=== PATIENT | female | born 1990 | race Caucasian/White ===

== ENCOUNTER 2024-04-06 07:00 | Outpatient (OUT) | payer OTHER, SELFPAY ==
[2024-04-07 04:07] LABS: Progesterone 13.7 ng/mL (.)
== END 2024-04-06 07:01 | disposition home or self-care (01) ==
PROVIDERS: PCP Nurse Practitioner Family; Visit Provider Obstetrics & Gynecology
DX: N97.0 Female infertility associated with anovulation (principal)
CPT/HCPCS: 36415; 84144

== ENCOUNTER 2024-09-14 12:47 | Outpatient (OUT) | payer OTHER, SELFPAY ==
--- NOTE | 2024-09-14 12:54 | US_ITS ---
The [address] [address] Patient Name: SARAHY SPENCE MRN: [id number] date: 1990 Sex: F Assigned Patient Location: US Current Patient Location: US Accession/Order Number: [id number] Exam Date: 09/14/2024 13:15 Report Date: 09/14/2024 14:41 At the request of: CARLYLE LEE Procedure: US venous doppler LE RT CLINICAL DATA: Right leg swelling PROCEDURE: Right lower extremity venous duplex ultrasound. TECHNIQUE: Reis-scale, color flow, and waveform spectral analysis was performed of the right lower extremity. FINDINGS: The right common femoral, profunda femoral, femoral, and popliteal veins were compressible. The saphenous vein was compressible. No venous thrombosis was seen. The veins fill with color Doppler. Augmentation was normal. US/US venous doppler LE RT IMPRESSION: 1. No acute lower extremity deep venous thrombosis. 2. No superficial venous thrombosis. Electronically authenticated by: Wilian TANG Date: 09/14/2024 14:41
== END 2024-09-14 12:48 | disposition home or self-care (01) ==
LOC: US 12:48
PROVIDERS: PCP Nurse Practitioner Family; Visit Provider Nurse Practitioner Family
DX: M79.661 Pain in right lower leg (principal); M79.89 Other specified soft tissue disorders; O26.891 Other specified pregnancy related conditions, first trimester; Z3A.09 9 weeks gestation of pregnancy
CPT/HCPCS: 93971

== ENCOUNTER 2024-09-25 09:31 | Outpatient (OUT) | payer OTHER, SELFPAY ==
--- NOTE | 2024-09-25 09:34 | US_ITS ---
The [address] [address] Patient Name: SARAHY SPENCE MRN: [id number] date: 1990 Sex: F Assigned Patient Location: [facility] Current Patient Location: Accession/Order Number: [id number] Exam Date: 09/25/2024 09:35 Report Date: 09/26/2024 05:04 At the request of: YEISON RAINEY Procedure: US OB transvaginal EXAMINATION: US OB transvaginal HISTORY: MISSED MENSES COMPARISON: No relevant comparison available. FINDINGS: GESTATIONAL SAC: Present and normal appearing. YOLK SAC: Present and normal appearing. POLE: Present and normal appearing. CARDIAC: Present. UTERUS: Normal size and appearance. OVARIES: Right: Normal. Left: Normal. CERVIX: 4.0 cm in length and closed. CUL-DE-SAC: Normal. OTHER: None. AGE BY LMP: 10 weeks 5 days ROYA BY LMP: 04/18/2025 AGE BY US CRL: 10 weeks 5 days ROYA BY US CRL: 04/18/2025 US/US OB transvaginal IMPRESSION: 1. Single live intrauterine . Electronically authenticated by: YOVANI DE LOS SANTOS Date: 09/26/2024 05:04
--- OUTSIDE RECORDS SUMMARY | 2024-09-25 09:44 | XMS_ITS | CCD ---
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 HELPER Leticia Neville Primary Care Provider ISAI Hinojosa Attending Provider Deloris, Leticia A Admitting Unavailable Deloris, Leticia A Attending Unavailable Deloris, Leticia A Primary Care Unavailable Araceli Hinojosa Attending Unavailable Araceli Hinojosa Admitting Unavailable Deloris, Leticia A Primary Care Unavailable Araceli Hinojosa Unavailable SAMARA BROWER Attending Unavailable APLING, SAMARA Gallo Attending Unavailable APLING, SAMARA Gallo Referring Unavailable APLING, SAMARA Gallo Attending Unavailable APLING, SAMARA Gallo Referring Unavailable YEISON SWEET Attending Unavailable APLING, SAMARA Gallo Attending Unavailable REDDFRANCY JacksonY Referring Unavailable REDDYEISON MADDOX Attending Unavailable Medications Current Medications Medication Drug Class(es) Dates Sig (Normalized) Sig (Original) Cholecalciferol (5 sources) Vitamin D Start: 04-05-2023 take 1 capsule by mouth every week Cholecalciferol 1.25 MG (97941 UT) 1 capsule Orally weekly for 56 days follow week 9 with D3 4000 IU daily Apr, Active take 1 capsule by mouth every we ek Cholecalciferol 1.25 MG (49623 UT) 1 capsule Orally weekly for 56 days follow week 9 with D3 4000 IU daily Active 3 ml liraglutide 6 mg/ml pen injector (5 sources) GLP-1 Receptor Agonist Start: 04-05-2023 inject 3 mg by subcutaneous injection once daily Saxenda 18 MG/3ML 3 mg Subcutaneous daily for 30 days Started via sample Apr, Active meclizine hydrochloride 25 mg oral tablet (1 source) Antiemetic Start: 09-14-2024 take 1 tablet by mouth once daily as needed Meclizine (Dramamine (Meclizine)) 25 mg tablet Active 25 MG PO Daily as needed September 14, 2024 12:00am [id number]-Ciho Fum-Folic Ac-Om3 (One Daily ) 28-800-440 mg-mcg-mg combo pack (1 source) Start: 09-14-2024 [id number]-Ezkw Fum-Folic Ac-Om3 (One Daily ) 28-800-440 mg-mcg-mg combo pack Active PKG PO September 14, 2024 12:00am (4 sources) Active vitamin b6 500 mg oral tablet (1 source) Start: 09-14-2024 take 1 tablet by mouth once daily Pyridoxine (Vitamin B6) 500 mg tablet Active 500 MG PO Daily September 14, 2024 12:00am Completed/Discontinued Medications Medication Drug Class(es) Dates Sig (Normalized) Sig (Original) amoxicillin 875 mg / clavulanate 125 mg oral tablet (8 sources) Penicillin-class Antibacterial Start: 09-11-2022 take 1 tablet by mouth every twelve hours Amoxicillin-Pot Clavulanate 875-125 MG 1 tablet Orally every 12 hrs for 10 day(s) Sep, Not-Taking Ethinyl Estradiol / Etonogestrel (15 sources) Progestin, Estrogen EluRyng 0.12-0.015 MG/24HR [address] for 3 weeks, remove, and replace with a new ring after 7 day break Vaginal Not-Taking NuvaRing Not-Bennett ing NuvaRing Active fluconazole 150 mg oral tablet (8 sources) Azole Antifungal Start: 09-11-2022 Fluconazole 1 50 MG 1 tablet Orally once, repeat dose in 72 hours if needed for 2 days Sep, Not-Taking Problems Active Problems Problem Classification Problem Date Documented Da te Episodic/Chronic Disorders of lipid metabolism (19 sources) Hyperlipidemia; Translations: [Hyperlipidemia, unspecified] Chronic Fracture of upper limb (2 sources) Fracture of unspecified carpal bone, left wrist, subsequent encounter for fracture with routine healing; Translations: [Torus fracture of lower end of left radius, initial encounter for closed fracture] Episodic Immunizations and screening for infectious disease (1 source) Contact with and (suspected) exposure to other viral communicable diseases Episodic Menstrual disorders (2 sources) Irregular periods; Translations: [Irregular menstruation, unspecified] Chronic Nutritional deficiencies (15 sources) Vitamin D deficiency; Translations: [Vitamin D deficiency, unspecified] Onset: 03-07-2023 Chronic Other connective tissue disease (1 source) Swelling of right lower limb; Translations: [Other specified soft tissue disorders] 09-14-2024 Episodic Other connective tissue disease (1 source) Pain in calf; Translations: [Pain in right lower leg] 09-14-2024 Episodic Other connective tissue disease (1 source) Pain in right lower leg; Translations: [Pain in limb] 09-14-2024 Episodic Other connective tissue disease (1 source) Other specified soft tissue disorders; Translations: [Swelling of limb] 09-14-2024 Episodic Other non-traumatic joint disorders (2 sources) Pain in left wrist Episodic Other nutritional; endocrine; and metabolic disorders (18 sources) Obesity; Translations: [Obesity, unspecified] Chronic Other nutritional; endocrine; and metabolic disorders (20 sources) Body mass index 40+ - severely obese; Translations: [Body mass index (BMI) 45.0-49.9, adult] Chronic Other nutritional; endocrine; and metabolic disorders (7 sources) Obesity, unspecified; Translations: [OBESITY UNSPECIFIED] Onset: 03-02-2023 Chronic Other nutritional; endocrine; and metabolic disorders (3 sources) Body mass index (BMI) 45.0-49.9, adult Chronic Other nutritional; endocrine; and metabolic disorders (4 sources) Morbid obesity; Translations: [Morbid (severe) obesity due to excess calories] Chronic Other nutritional; endocrine; and metabolic disorders (1 source) Morbid (severe) obesity due to excess calories Chronic Other skin disorders (3 sources) Nonscarring hair loss, unspecified Episodic Other skin disorders (3 sources) Hirsutism Episodic Other skin disorders (7 sources) Acanthosis nigricans; Translations: [Acanthosis nigricans] Episodic Other skin disorders (1 source) Acanthosis nigricans Episodic Other upper respiratory infections (1 source) Acute maxillary sinusitis, unspecified Episodic Residual codes; unclassified (4 sources) Family history of diabetes mellitus; Translations: [FAMILY HISTORY OF DIABETES MELLITUS] Onset: 03-07-2023 Episodic Residual codes; unclassified (2 sources) Family history of ischemic heart disease and other diseases of the circulatory system Episodic Residual codes; unclassified (1 source) Gestation period, 9 weeks; Translations: [9 weeks gestation of ] 09-14-2024 Episodic Residual codes; unclassified (1 source) 9 weeks gestation of ; Translations: [ state, incidental] 09-14-2024 Episodic Unclassified (1 source) Pain in left wrist; Translations: [Pain in left wrist] Onset: 11-29-2023 Unclassified (1 source) Dietary counseling and surveillance; Translations: [Dietary counseling and surveillance] Onset: 05-13-2023 Past or Other Problems Problem Classification Problem Date Documented Da te Episodic/Chronic Unclassified (1 source) Insulin resistance E88.819 Results Test Name Value Interpretation Reference Range Facility US PELVIC COMPLETE W/ TVon 0 02-18-2024 US PELVIC COMPLETE W/ TV FINDINGS: Uterus: 6.6 x 2.6 x 2.2 cm Endometrium: 4 mm Right ovary: 2.3 x 2.5 x 2.0 cm Left ovary: 2.0 x 1.7 x 1.8 cm The uterus is normal in size and orientation. No worrisome mass lesions are seen. Endometrium appears unremarkable. No fluid is seen within the cul-de-sac. Both ovaries appear normal for this age. IMPRESSION: Normal pelvic ultrasound appearance TRANSCRIBED BY: ELECTRONICALLY SIGNED BY: Tremaine Jay MD Normal Not Available Comment on above: Order Comment: No LM P recorded (lmp unknown). XR wrist LT min 3V*on 2023 XR wrist LT min 3V* [facility] Other XR wrist LT min 3V* [facility] Other XR wrist LT min 3V* [address] [place] [address] [facility] Other XR wrist LT min 3V* [place] [address] [facility] Other XR wrist LT min 3V* XRay Report [facility] Other XR wrist LT min 3V* Signed [facility] Other XR wrist LT min 3V* Patient: Sandra Colon MR#: [id number] [facility] Other XR wrist LT min 3V* [id number] [facility] Other XR wrist LT min 3V* : 1990 Acct:[id number] [facility] Other XR wrist LT min 3V* Age/Sex: 33 / F ADM Date: 11/29/23 [facility] Other XR wrist LT min 3V* Loc: XDUCLY Room: Type: [facility] Other XR wrist LT min 3V* Attending Dr: Araceli ALEX [facility] Other XR wrist LT min 3V* Copies to: ISAI Fisher [facility] Other XR wrist LT min 3V* Ordering Provider: ISAI Fisher [facility] Other XR wrist LT min 3V* Date of Service: 11/29/23 [facility] Other XR wrist LT min 3V* XR/XR wrist LT min 3V*: LEFT WRIST INJURY [facility] Other XR wrist LT min 3V* LEFT WRIST - 4 views [facility] Other XR wrist LT min 3V* CLINICAL HISTORY: Patient fell on steps this morning now with pain and swelling left wrist. [facility] Other XR wrist LT min 3V* COMPARISON: None [facility] Other XR wrist LT min 3V* FINDINGS: [facility] Other XR wrist LT min 3V* No focal soft tissue abnormality. A subtle linear lucency is seen involving the distal radius [facility] Other XR wrist LT min 3V* possibly representing a nondisplaced fracture. Distal ulna appears intact. Carpus appears intact. No [facility] Other XR wrist LT min 3V* bony erosions. [facility] Other XR wrist LT min 3V* XR/XR wrist LT min 3V* [facility] Other XR wrist LT min 3V* IMPRESSION: [facility] Other XR wrist LT min 3V* A SUBTLE LINEAR LUCENCY IS SEEN INVOLVING THE DISTAL RADIUS POSSIBLY REPRESENTING A NONDISPLACED [facility] Other XR wrist LT min 3V* FRACTURE. FOLLOW-UP IS RECOMMENDED. [facility] Other XR wrist LT min 3V* Impression dictated by: Tremaine Larsen Jr., D.O.11/29/2023 10:19 AM [facility] Other XR wrist LT min 3V* Dictation Location: [place] [address] [facility] Other XR wrist LT min 3V* Transcribed By: ABDULKADIR 11/29/23 1019 [facility] Other XR wrist LT min 3V* Dictated By: Tremaine Larsen Jr DO 11/29/23 1017 [facility] Other XR wrist LT min 3V* Signed By: [facility] Other XR wrist LT min 3V* 11/29/23 1019 [facility] Other XR wrist LT min 3V* [facility] [place] [address] [place] [address] XRay Report Signed Patient: Sandra Colon MR#: [id number] : 1990 Acct:[id number] Age/Sex: 33 / F ADM Date: 11/29/23 Loc: XDUCLY Room: Type: [facility] Attending Dr: Araceli ALEX Copies to: ISAI Fisher Ordering Provider: ISAI Fisher Date of Service: 11/29/23 XR/XR wrist LT min 3V*: LEFT WRIST INJURY LEFT WRIST - 4 views CLINICAL HISTORY: Patient fell on steps this morning now with pain and swelling left wrist. COMPARISON: None FINDINGS: No focal soft tissue abnormality. A subtle linear lucency is seen involving the distal radius possibly representing a nondisplaced fracture. Distal ulna appears intact. Carpus appears intact. No bony erosions. XR/XR wrist LT min 3V* IMPRESSION: A SUBTLE LINEAR LUCENCY IS SEEN INVOLVING THE DISTAL RADIUS POSSIBLY REPRESENTING A NONDISPLACED FRACTURE. FOLLOW-UP IS RECOMMENDED. Impression dictated by: Tremaine Larsen Jr., DMaryOMary11/29/2023 10:19 AM Dictation Location: [place] [address] Transcribed By: [facility] 11/29/23 1019 Dictated By: Tremaine Larsen Jr, DO 11/29/23 1017 Signed By: 11/29/23 1019 Normal [facility] LIPID PROFILEon 03-02-2023 CHOL-HDL RATIO NORM SEE BELOW Normal [facility] Comment on above: Result Comment: 3.3 - 4.4 LOW RISK 4.4 - 7.1 AVERAGE RISK 7.1 - 11.0 MODERATE RISK >11.0 HIGH RISK Performed By: #### L ABELARDO IBRAHIM, TSHRFT4 #### [facility] [address] [place] [address] [address] Aruna Lopez Cholesterol [Mass/Vol] 264 mg/dL Critically high <=200 [facility] Comment on above: Performed By: #### L ABELARDO IBRAHIM, TSHRFT4 #### [facility] [address] [place], [place] [address] Dr. Aruna Lopez Cholesterol in HDL [Mass/Vol] 46 mg/dL Normal 40-60 [facility] Comment on above: Performed By: #### L IPID, CMP, TSHRFT4 #### [facility] [address] [place] [address] [address] Aruna Lopez Cholesterol in LDL [Mass/Vol] 193.0 mg/dL Normal [facility] Comment on above: Performed By: #### L IPID, CMP, TSHRFT4 #### [facility] [address] [place] [address] [address] Aruna Lopez Cholesterol.total/ Cholesterol in HDL [Mass ratio] 5.7 {ratio} Normal [facility] Comment on above: Performed By: #### L IPID, CMP, TSHRFT4 #### [facility] [address] [place] [address] [address] Aruna Lopez HDL NORMAL > or = 60 mg/dl - LOW CARDIOVASCULAR RISK <40 mg/dl - HIGH CARDIOVASCULAR RISK Normal [facility] Comment on above: Performed By: #### L IPID, CMP, TSHRFT4 #### [facility] [address] [place] [address] [address] Aruna Lopez LDL CALC NORMAL SEE BELOW Normal [facility] Comment on above: Result Comment: <100 mg/dl OPTIMAL 100 - 129 mg/dl NEAR OR ABOVE OPTIMAL 130 - 159 mg/dl BORDERLINE HIGH 160 - 189 mg/dl HIGH >190 mg/dl VERY HIGH Performed By: #### L IPID, CMP, TSHRFT4 #### [facility] [address] [place] [address] [address] Aruna Lopez Triglyceride [Mass/Vol] 125 mg/dL Normal <=150 [facility] Comment on above: Performed By: #### L IPID, CMP, TSHRFT4 #### [facility] [address] [place] [address] [address] Aruna Lopez VLDL CALC 25.0 mg/dL Normal [facility] Comment on above: Performed By: #### L IPID, CMP, TSHRFT4 #### [facility] [address] [place] [address] [address] Aruna Lopez PROF 14(COMP METB)on 023 Albumin [Mass/Vol] 3.2 g/dL Critically low 3.4-5.0 [facility] Comment on above: Performed By: #### L IPID, CMP, TSHRFT4 #### [facility] [address] [place] [address] Dr. Aruna Lopez Albumin/Globulin [Mass ratio] 0.8 {ratio} Normal [facility] Comment on above: Performed By: #### L IPID, CMP, TSHRFT4 #### [facility] [address] [place] [address] Dr. Aruna Lopez ALP [Catalytic activity/Vol] 107 U/L Normal 46-116 [facility] Comment on above: Performed By: #### L IPID, CMP, TSHRFT4 #### [facility] [address] [place] [address] Dr. Aruna Lopez ALT [Catalytic activity/Vol] 17 U/L Normal 14-59 [facility] Comment on above: Performed By: #### L IPID, CMP, TSHRFT4 #### [facility] [address] [place] [address] Dr. Aruna Lopez Anion gap [Moles/Vol] 8.0 mmol/L Normal [facility] Comment on above: Performed By: #### L IPID, CMP, TSHRFT4 #### [facility] [address] [place] [address] Dr. Aruna Lopez AST [Catalytic activity/Vol] 29 U/L Normal 15-37 [facility] Comment on above: Performed By: #### L IPID, CMP, TSHRFT4 #### [facility] [address] [place] [address] Dr. Aruna Lopez Bilirubin [Mass/Vol] 0.5 mg/dL Normal 0.2-1.0 [facility] Comment on above: Performed By: #### L IPID, CMP, TSHRFT4 #### [facility] [address] [place] [address] Dr. Aruna Lopez Calcium [Mass/Vol] 8.9 mg/dL Normal 8.5-10.1 [facility] Comment on above: Performed By: #### L IPID, CMP, TSHRFT4 #### [facility] [address] [place] [address] [address] Aruna Lopez Chloride [Moles/Vol] 105 mmol/L Normal 98-107 [facility] Comment on above: Performed By: #### L IPID, CMP, TSHRFT4 #### [facility] [address] [place] [address] [address] Aruna Lopez CO2 [Moles/Vol] 29.6 mmol/L Normal 21.0-32.0 [facility] Comment on above: Performed By: #### L IPID, CMP, TSHRFT4 #### [facility] [address] [place] [address] [address] Aruna Lopez Creatinine [Mass/Vol] 0.68 mg/dL Normal 0.55-1.02 [facility] Comment on above: Performed By: #### L IPID, CMP, TSHRFT4 #### [facility] [address] [place] [address] [address] Aruna Lopez EGFR-AF ZAMBIAN >60 Normal >=60 [facility] Comment on above: Performed By: #### L IPID, CMP, TSHRFT4 #### [facility] [address] [place] [address] Dr. Aruna Lopez EGFR-NON AF ZAMBIAN >60 Normal >=60 [facility] Comment on above: Performed By: #### L IPID, CMP, TSHRFT4 #### [facility] [address] [place] [address] [address] Aruna Lopez Globulin (S) [Mass/Vol] 4.1 g/dL Normal [facility] Comment on above: Performed By: #### L IPID, CMP, TSHRFT4 #### [facility] [address] [place] [address] [address] Aruna Lopez Glucose [Mass/Vol] 98 mg/dL Normal 74-106 [facility] Comment on above: Performed By: #### L IPID, CMP, TSHRFT4 #### [facility] [address] [place] [address] [address] Aruna Lopez Potassium [Moles/Vol] 4.6 mmol/L Normal 3.5-5.1 [facility] Comment on above: Performed By: #### L IPID, CMP, TSHRFT4 #### [facility] [address] [place] [address] Dr. Aruna Lopez Protein [Mass/Vol] 7.3 g/dL Normal 6.4-8.2 [facility] Comment on above: Performed By: #### L IPID, CMP, TSHRFT4 #### [facility] [address] [place] [address] Dr. Aruna Lopez Sodium [Moles/Vol] 138 mmol/L Normal 136-145 [facility] Comment on above: Performed By: #### L IPID, CMP, TSHRFT4 #### [facility] [address] [place] [address] Dr. Aruna Lopez Urea nitrogen [Mass/Vol] 9.0 mg/dL Normal 7.0-18.0 [facility] Comment on above: Performed By: #### L IPID, CMP, TSHRFT4 #### [facility] [address] [place] [address] Dr. Aruna Lopez Urea nitrogen/Creatinin e [Mass ratio] 13.2 mg/mg Normal [facility] Comment on above: Performed By: #### L IPID, CMP, TSHRFT4 #### [facility] [address] [place] [address] Dr. Aruna Lopez TSH W/ REFLEX TO FT4on 03-02 TSH 1.177 uIU/mL Normal 0.358-3.740 [facility] Comment on above: Performed By: #### L IPID, CMP, TSHRFT4 #### [facility] [address] [place] [address] Dr. Aruna Lopez VITAMIN B12on 03-02-2023 Cobalamin (Vitamin B12) [Mass/Vol] 261.0 pg/mL Normal 193.0-986.0 [facility] Comment on above: Performed By: #### V ITAD, VITB12 #### [facility] [address] [place], [place] [address] Dr. Aruna Lopez VITAMIN D 25 OHon 03-02-2023 VIT D 25-OH 15.6 ng/mL Normal [facility] Comment on above: Performed By: #### V ITAD, VITB12 #### [facility] [address] [place] [address] [address] Aruna Lopez VIT D RANGES SEE BELOW Normal [facility] Comment on above: Result Comment: <20 ng/mL Vit D deficient 20 - <30 ng/mL Vit D insufficient 30 - 100 ng/mL Vit D sufficient >100 ng/mL Potential Toxicity Performed By: #### V ITAD, VITB12 #### [facility] [address] [place] [address] [address] Aruna Lopez COVID Quick Testingon 2021 Result Negative [facility] Other Quick Strepon 09-11-2022 S. pyogenes Org specific cx Ql (Throat) Negative [employer] [facility] Other Quick Strep [facility] Other Vital Signs Date Time Vital Sign Value Performing Clinician Facility 09-14-2024 10:46-0500 Body height 160.02 cm [facility] 09-14-2024 10:46-0500 Body mass index (BMI) [Ratio] 47.8 kg/m2 [facility] 09-14-2024 10:46-0500 Body temperature 95.6 [degF] [facility] 09-14-2024 10:46-0500 Body weight 122.55 kg [facility] 09-14-2024 10:46-0500 Diastolic blood pressure 84 mm[Hg] [facility] 09-14-2024 10:46-0500 Heart rate 102 /min [facility] 09-14-2024 10:46-0500 SaO2% (BldA) [Mass fraction] 96 % [facility] 09-14-2024 10:46-0500 Systolic blood pressure 128 mm[Hg] [facility] 12-05-2023 13:00-0500 Body height 160.02 cm Mirta Matta Other [facility] Other 12-05-2023 13:00-0500 Body mass index (BMI) [Ratio] 48.18 kg/m2 Mirta Paxton Other [facility] Other 12-05-2023 13:00-0500 Body weight 123.38 kg Mirta Paxton Other [facility] Other 12-05-2023 13:00-0500 Diastolic blood pressure 78 mm[Hg] Mirta Paxton Other [facility] Other 12-05-2023 13:00-0500 SaO2% (BldA) [Mass fraction] 98 % Mirta Paxton Other [facility] Other 12-05-2023 13:00-0500 Systolic blood pressure 122 mm[Hg] Mirta Paxton Other [facility] Other 11-29-2023 09:10-0500 Body height 160.02 cm Araceli Micaela Other [facility] Other 11-29-2023 09:10-0500 Body mass index (BMI) [Ratio] 21.93 kg/m2 Araceli Micaela Other [facility] Other 11-29-2023 09:10-0500 Body temperature 98.7 [degF] Araceli Micaela Other [facility] Other 11-29-2023 09:10-0500 Body weight 56.16 kg Araceli Micaela Other [facility] Other 11-29-2023 09:10-0500 Diastolic blood pressure 88 mm[Hg] Araceli Hinojosa Other [facility] Other 11-29-2023 09:10-0500 Respiratory rate 18 /min Araceli Hinojosa Other [facility] Other 11-29-2023 09:10-0500 SaO2% (BldA) [Mass fraction] 97 % Araceli Hinojosa Other [facility] Other 11-29-2023 09:10-0500 Systolic blood pressure 133 mm[Hg] Araceli Hinojosa Other [facility] Other 11-25-2023 13:00-0500 Body height 157.48 cm Mirta Matta Other [facility] Other 11-25-2023 13:00-0500 Body mass index (BMI) [Ratio] 50.29 kg/m2 Mirta Matta Other [facility] Other 11-25-2023 13:00-0500 Body weight 124.74 kg Mirta Matta Other [facility] Other 11-25-2023 13:00-0500 Diastolic blood pressure 76 mm[Hg] Mirta Matta Other [facility] Other 11-25-2023 13:00-0500 SaO2% (BldA) [Mass fraction] 98 % Mirta Matta Other [facility] Other 11-25-2023 13:00-0500 Systolic blood pressure 118 mm[Hg] Mirta Lawsonacher Other [facility] Other 05-13-2023 09:15-0400 Body height 157.48 cm Janette Scally Other [facility] Other 05-13-2023 09:15-0400 Body mass index (BMI) [Ratio] 49.34 kg/m2 Janette Scally Other [facility] Other 05-13-2023 09:15-0400 Body weight 122.38 kg Janette Scally Other [facility] Other 05-13-2023 09:15-0400 Diastolic blood pressure 85 mm[Hg] Janette Scally Other [facility] Other 05-13-2023 09:15-0400 Respiratory rate 18 /min Janette Scally Other [facility] Other 05-13-2023 09:15-0400 SaO2% (BldA) [Mass fraction] 97 % Janette Scally Other [facility] [employer] Other 05-13-2023 09:15-0400 Systolic blood pressure 116 mm[Hg] Janette Scally Other [facility] [employer] Other 04-05-2023 11:15-0400 Body height 157.48 cm Janette Scally Other [facility] [employer] Other 04-05-2023 11:15-0400 Body mass index (BMI) [Ratio] 50.44 kg/m2 Janette Scally Other [facility] Other 04-05-2023 11:15-0400 Body weight 125.1 kg Janette Scally Other [facility] Other 04-05-2023 11:15-0400 Diastolic blood pressure 91 mm[Hg] Janette Scally Other [facility] [employer] Other 04-05-2023 11:15-0400 Respiratory rate 16 /min Janette Scally Other [facility] [employer] Other 04-05-2023 11:15-0400 SaO2% (BldA) [Mass fraction] 100 % Janette Scally Other [facility] [employer] Other 04-05-2023 11:15-0400 Systolic blood pressure 137 mm[Hg] Janette Scally Other [facility] [employer] Other 02-01-2023 11:15-0400 Body height 157.48 cm Janette Scally Other [facility] [employer] Other 02-01-2023 11:15-0400 Body mass index (BMI) [Ratio] 49.29 kg/m2 Janette Scally Other [facility] Other 02-01-2023 11:15-0400 Body weight 122.25 kg Janette Scally Other [facility] Other 02-01-2023 11:15-0400 Diastolic blood pressure 83 mm[Hg] Janette Scally Other [facility] [employer] Other 02-01-2023 11:15-0400 Respiratory rate 18 /min Janette Scally Other [facility] [employer] Other 02-01-2023 11:15-0400 SaO2% (BldA) [Mass fraction] 98 % Janette Dinero Other [facility] Other 02-01-2023 11:15-0400 Systolic blood pressure 124 mm[Hg] Janette Dinero Other [facility] Other 09-11-2022 10:15-0500 Body height 157.48 cm Terri Medina Other [facility] [employer] Other 09-11-2022 10:15-0500 Body mass index (BMI) [Ratio] 47.55 kg/m2 Terri Medina Other [facility] [employer] Other 09-11-2022 10:15-0500 Body temperature 98 [degF] Terri Medina Other [employer] Other 09-11-2022 10:15-0500 Body weight 117.94 kg Terri Medina Other [facility] Other 09-11-2022 10:15-0500 Diastolic blood pressure 91 mm[Hg] Terri Medina Other [facility] Other 09-11-2022 10:15-0500 Respiratory rate 16 /min Terri Medina Other [facility] [employer] Other 09-11-2022 10:15-0500 SaO2% (BldA) [Mass fraction] 98 % Terri Medina Other [facility] Other 09-11-2022 10:15-0500 Systolic blood pressure 142 mm[Hg] Terri Medina Other [employer] Other Encounters Encounter Date Encounter Type Care Provider Facility Start: 09-14-2024 End: 09-14-2024 ambulatory [facility] Work Phone: Start: 09-14-2024 End: 09-14-2024 Patient encounter procedure [facility] Work Phone: Start: 04-22-2024 End: 04-22-2024 ambulatory YEISON REDD Not Available Start: 02-18-2024 End: 02-18-2024 ambulatory YEISON REDD Not Available Start: 02-12-2024 End: 02-12-2024 ambulatory SAMARA B APLING Not Available Start: 01-14-2024 End: 01-14-2024 ambulatory YEISON REDD Not Available Start: 01-13-2024 End: 01-13-2024 ambulatory SAMARA B APLING Not Available Start: 12-23-2023 End: 12-23-2023 ambulatory SAMARA B APLING Not Available Start: 12-05-2023 End: 12-05-2023 ambulatory Mirta Matta Other [facility] [employer] Other Start: 12-05-2023 Office outpatient vi sit 15 minutes Mirta Matta [facility] Start: 12-02-2023 Telephone encounter Mirta Truong [facility] Start: 12-02-2023 End: 12-02-2023 ambulatory SAAMRA B APLING [facility] Other Start: 11-29-2023 Office outpatient vi sit 15 minutes Araceli Hinoojsa [facility] Start: 11-29-2023 End: 11-29-2023 ambulatory Araceli Hermond Facility:[facility] Start: 11-29-2023 End: 11-29-2023 ambulatory 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 Work Phone: [facility] Work Phone: Start: 11-29-2023 End: 11-29-2023 Patient encounter procedure ABHAY Puentes Work Phone: [facility] Work Phone: Start: 11-25-2023 End: 11-25-2023 ambulatory Mirta Matta Other [facility] Other Start: 11-25-2023 Encounter for genera l adult medical examination without abnormal findings Mirta Matta [facility] Start: 11-25-2023 Initial preventive medicine new pt age 18-39yrs Mirta Matta [facility] Start: 08-29-2023 End: 08-30-2023 ambulatory Leticia Puentes [employer]INE[employer]-C Facility:[facility] Start: 06-24-2023 End: 06-24-2023 ambulatory Janette Dinero Other [facility] Other Start: 06-24-2023 Telephone encounter Janette [facility]a [facility] Start: 05-31-2023 End: 05-31-2023 ambulatory Janetteelena Dinero Other [facility] Other Start: 05-31-2023 Telephone encounter Janette Norton [facility] Start: 05-13-2023 [facility] Weight Management f/u Janette Dinero [facility] Start: 05-13-2023 End: 05-14-2023 ambulatory Leticia Puentes [facility] Other Start: 04-23-2023 End: 04-23-2023 ambulatory Janette Gretchen Other [facility] Other Start: 04-23-2023 Telephone encounter Janette Gretchen [facility] Start: 04-05-2023 ([facility]) Weight Management f/u Janetteelena Dinero [facility] Start: 04-05-2023 End: 04-05-2023 ambulatory Janette Scally Other [facility] Other Start: 03-04-2023 End: 03-04-2023 ambulatory Janette Dinero Other [employer] Other Start: 03-04-2023 Telephone encounter Janette lea [facility] Start: 03-02-2023 End: 03-03-2023 ambulatory JANETTE DINERO Facility:[facility] Start: 02-01-2023 End: 02-01-2023 ambulatory Janette Dinero Other [facility] Other Start: 02-01-2023 Nutrition therapy Janette Dick [facility] Start: 09-11-2022 End: 09-11-2022 ambulatory Terri Medina Other [employer] Other Start: 09-11-2022 Office outpatient vi sit 15 minutes Terri Medina [facility] Procedures Date Procedure Procedure Detail Performing Clinician Start: 11-29-2023 Plain X-ray of left wrist ABHAY Puentes Work Phone: Plan of Treatment Date Care Activity Detail Author US Lower extremity vein - right [facility] Payers Date Payer Category Payer Self-pay 1990 Unknown [id number] 2.16.84 [id number] 1990 Unknown [id number] 2.16.8 [id number] 1992 Unknown [id number] 2.16.84 [id number] 1992 Unknown [id number] 2.16.84 [id number] 1992 Unknown [id number] 2.16.84 0.1.843145.3.579.2.1258 1992 Unknown [id number] 2.16.84 0.1.884814.3.579.2.1258 1992 Unknown [id number] 2.16.84 0.1.526707.3.579.2.1258 1992 Unknown [id number] 2.16.84 0.1.896231.3.579.2.1258 1992 Unknown [id number] 2.16.84 0.1.353696.3.579.2.1258 1992 Unknown [id number] 2.16.84 0.1.206942.3.579.2.1258 1992 Unknown [id number] 2.16.84 0.1.260655.3.579.2.9 1959 Unknown [id number] 2.16.8 [id number] Unknown [id number] 2. [id number] Unknown [id number] 2.16 .[id number] Unknown [id number] 2.16.8 40.1.038078.3.579.2.531 Unknown [id number] 2.16.8 [id number] Social History Date Type Detail Facility Sex Assigned At [employer] [facility] Other Start: 1990 Sex Assigned At Female F [facility] Tobacco smoking stat [facility] Unknown if ever smoked [facility] Work Phone: Start: 09-14-2024 Sex Female (finding) [facility] Medical Equipment Procedure Code Equipment Code Equipment Origin al Text Equipment Identifier Dates [place] [id number] X 4 MM Start: 04-05-2023 Clinical Notes 09-11-2022 to 12-05-2023 Note Date & Type Note Facility 12-05-2023 Evaluation note Encounter Date Diagnosis Assessment Notes Dec, Left wrist pain (ICD-10 - M25.532) Dec, Closed fracture of left wrist with routine healing, subsequent encounter (ICD-10 - S62.102D) Following with ortho. Has next appt 12/23Dec, Insulin resistance (ICD-10 - E88.819) Would like to a referral to [facility] as she is trying to start a family and has irregular cycles with insulin resistance. Dec, Irregular menstruation (ICD-10 - N92.6) [facility] [facility] Other 01-26-2024 Evaluation note* Encounter Date Diagnosis Assessment Notes Treatment Notes Treatment Clinical Notes Nov, Left wrist pain (ICD-10 - M25.532) Nov, Closed torus fracture of distal end of left radius, initial encounter (ICD-10 - S52.522A) Keep the splint in place until seen by orthopedics. Ice and elevate your left wrist 2-3 times a day. Take ibuprofen as needed for pain. Follow-up with your orthopedic physician as soon as possible for reevaluation. [facility] [facility] Other 01-22-2024 Evaluation note* Encounter Date Diagnosis Assessment Notes Treatment Notes Treatment Clinical Notes Nov, Wellness examination (ICD-10 - Z00.00) Personalized health advice given. Additional counseling was provided here today in regards to general topics regarding health education were discussed in detail. All preventative issues were discussed including remaining a nonsmoker, colorectal screening, the importance of proper sleep for brain health maintenance, maintaining a heart-healthy balanced diet, recognizing and addressing signs of anxiety and depression, maintaining positive relationships with family and friends. Nov, Elevated LDL cholesterol level (ICD-10 - E78.00) Lipid panel reviwed with patient. Dicsussed importance of maintaining an LDL level at specified goal. Discussed associated risk factors of hyperlipidemia including stroke and heart attack. Treatment with medications discussed and we have agrees upon appropirate action of treatment and goals. Discussed dietary modifications, including decreasing red meat consumption, decreased alcohol consumption, avoiding fried foods, and cake and cookies, and sweets. Encouraged increasing fiber in diet and eat a diet rich in omega-3. Encouraged to exericse at least 150 minutes weekly. Barriers to plan of care have been addressed. Follow-up as directed. Nov, Obesity, morbid, BMI 50 or higher (ICD-10 - E66.01) Patient is advised to work on healthy diet choices and appropriate servings, weight control, regular exercise as directed, reduced fat intake, and salt avoidance. Patient voiced understanding of this and agrees to this plan. [facility] Other 07-10-2023 Evaluation note* Encounter Date Diagnosis Assessment Notes Treatment Notes Treatment Clinical Notes May, Obesity (ICD-10 - E66.9) Plan, purchase and prepare healthy foods. Use shopping list, electronic shopping to curb impulse buying. Stock pantry with healthy foods. Keep fruits and vegetables accessible. Avoid bringing unhealthy foods in to the home. Plan family meals minimally 3 x per week. Decrease screen time. She did tolerate Saxenda sample between 06 April and 25 April 2023, she lost 6 pounds, possibly more as that was approximately 2 weeks ago. She felt significant satiety during this.. This is a loss of 2% body weight which I think is significant in that period of time. Hopeful that they will reconsider. She denies denies personal or family history of MTC or MENS syndrome (discussed in layman's terms). Patient denies history of pancreatitis. May, BMI 45.0-49.9, adult (ICD-10 - Z68.42) May, Vitamin D deficiency (ICD-10 - E55.9) Vitamin D deficiency suspected. Vitamin D has been noted to have positive impact on mood and energy. We can recheck periodically and make recommendations for long-term supplementation with vlgr-clm-vgprisj formulations or prescription grade repletion. May, Family history of diabetes mellitus (ICD-10 - Z83.3) Discussed how diabetes II delayed or avoided with lifestyle changes such as, losing weight, being active, improving dietary intake. Discussed the risks for diabetes. Explained that weight loss of 5-10% can have significant impact. Consistent with weight management recommendations, encouraged diet rich in fruits, vegetables, low fat dairy, low in red meat sweets and refined grains. Stay away from soda and fruit juice. Increase activity 30 minutes most days of the week. May, Hyperlipidemia (ICD-10 - E78.5) Discussed risks of elevated LDL. Encouraged intake of foods low in saturated fat as well as supplements (boone, fish oil). Discussed LDL contributing to insulin resistance and increase cardiovascular risk factors. Discussed implications of family history of early NV in her father <55 years old. May necessitate statin if not significant reduction with RD changes ----ADVICE---- In patients without phenotypically severe hypercholesterolem ia, begin risk assessment by estimating lifetime risk. In patients with persistent, moderate hypercholesterolem ia, lifestyle intervention is indicated, and long-term statin therapy would be beneficial. In patients with severe hypercholesterolem ia, lifestyle intervention and maximally tolerated statin therapy indicated. If LDL-C reduction of >50% not achieved, non-statin therapies may also be indicated. In patients with diabetes of long duration and/or albuminuria, eGFR <60 ml/min/m2, retinopathy or neuropathy, lifestyle intervention indicated, and statin therapy may be reasonable. May, Family history of early CAD (ICD-10 - Z82.49) May, Alopecia (ICD-10 - L65.9) May, Hirsutism (ICD-10 - L68.0) May, Acanthosis nigricans (ICD-10 - L83) May, Other I have spent 30 minutes with this patient and over 50% of the visit was counseling done by myself, Cathryn CORTEZ. [facility] Other 06-02-2023 Evaluation note* Encounter Date Diagnosis Assessment Notes Treatment Notes Treatment Clinical Notes Apr, Obesity (ICD-10 - E66.9) Plan, purchase and prepare healthy foods. Use shopping list, electronic shopping to curb impulse buying. Stock pantry with healthy foods. Keep fruits and vegetables accessible. Avoid bringing unhealthy foods in to the home. Plan family meals minimally 3 x per week. Decrease screen time. Apr, BMI 45.0-49.9, adult (ICD-10 - Z68.42) Apr, Vitamin D deficiency (ICD-10 - E55.9) Vitamin D deficiency suspected. Vitamin D has been noted to have positive impact on mood and energy. We can recheck periodically and make recommendations for long-term supplementation with kudp-lae-dexwzxa formulations or prescription grade repletion. Apr, Family history of diabetes mellitus (ICD-10 - Z83.3) Discussed how diabetes II delayed or avoided with lifestyle changes such as, losing weight, being active, improving dietary intake. Discussed the risks for diabetes. Explained that weight loss of 5-10% can have significant impact. Consistent with weight management recommendations, encouraged diet rich in fruits, vegetables, low fat dairy, low in red meat sweets and refined grains. Stay away from soda and fruit juice. Increase activity 30 minutes most days of the week. Apr, Hyperlipidemia (ICD-10 - E78.5) Discussed risks of elevated LDL. Encouraged intake of foods low in saturated fat as well as supplements (boone, fish oil). Discussed LDL contributing to insulin resistance and increase cardiovascular risk factors. Discussed implications of family history of early NV in her father <55 years old. May necessitate statin if not significant reduction with RD changes ----ADVICE---- In patients without phenotypically severe hypercholesterolem ia, begin risk assessment by estimating lifetime risk. In patients with persistent, moderate hypercholesterolem ia, lifestyle intervention is indicated, and long-term statin therapy would be beneficial. In patients with severe hypercholesterolem ia, lifestyle intervention and maximally tolerated statin therapy indicated. If LDL-C reduction of >50% not achieved, non-statin therapies may also be indicated. In patients with diabetes of long duration and/or albuminuria, eGFR <60 ml/min/m2, retinopathy or neuropathy, lifestyle intervention indicated, and statin therapy may be reasonable. Apr, Family history of early CAD (ICD-10 - Z82.49) Apr, Alopecia (ICD-10 - L65.9) Apr, Hirsutism (ICD-10 - L68.0) Apr, Other I have spent 30 minutes with this patient and over 50% of the visit was counseling done by myself, Cathryn CORTEZ. [employer] Other 03-31-2023 Evaluation note* Encounter Date Diagnosis Assessment Notes Treatment Notes Treatment Clinical Notes Jan, Obesity (ICD-10 - E66.9) Plan, purchase and prepare healthy foods. Use shopping list, electronic shopping to curb impulse buying. Stock pantry with healthy foods. Keep fruits and vegetables accessible. Avoid bringing unhealthy foods in to the home. Plan family meals minimally 3 x per week. Decrease screen time. Jan, BMI 45.0-49.9, adult (ICD-10 - Z68.42) Jan, Vitamin D deficiency (ICD-10 - E55.9) Vitamin D deficiency suspected. Vitamin D has been noted to have positive impact on mood and energy. We can recheck periodically and make recommendations for long-term supplementation with hkdk-xhq-vzhetmg formulations or prescription grade repletion. Jan, Family history of diabetes mellitus (ICD-10 - Z83.3) Discussed how diabetes II delayed or avoided with lifestyle changes such as, losing weight, being active, improving dietary intake. Discussed the risks for diabetes. Explained that weight loss of 5-10% can have significant impact. Consistent with weight management recommendations, encouraged diet rich in fruits, vegetables, low fat dairy, low in red meat sweets and refined grains. Stay away from soda and fruit juice. Increase activity 30 minutes most days of the week. Jan, Hyperlipidemia (ICD-10 - E78.5) Discussed risks of elevated LDL. Encouraged intake of foods low in saturated fat as well as supplements (boone, fish oil). Discussed LDL contributing to insulin resistance and increase cardiovascular risk factors. Jan, Alopecia (ICD-10 - L65.9) Jan, Hirsutism (ICD-10 - L68.0) Jan, Other I have spent 60 minutes with this patient and over 50% of the visit was counseling done by myself, Cathryn CORTEZ. [employer] Other 11-08-2022 Evaluation note* Encounter Date Diagnosis Assessment Notes Treatment Notes Treatment Clinical Notes Sep, Contact with and (suspected) exposure to other viral communicable diseases (ICD-10 - Z20.828) Sep, Acute non-recurrent maxillary sinusitis (ICD-10 - J01.00) Advised patient that rapid COVID and Strep tests were negative today in office. Discussed diagnosis with patient. Will today for bacterial sinusitis based on physical exam and duration of symptoms. Advised patient to take antibiotic as prescribed, complete entire course of therapy even if symptoms resolve. Reviewed allergies and recent antibiotic use with patient. Advised patient to take OTC cold medications, OTC Flonase. Supportive care as directed, push fluids and rest, Tylenol and/or Motrin as directed for discomfort/fever, warm moist compress over sinuses several times a day, cool mist humidification, nasal saline spray as directed. Symptoms should improve in the next 3 days, if symptoms persist follow up with PCP. Immediate eval for warning s/sx as discussed. Patient verbalizes understanding and is agreeable to treatment plan [facility] Other Evaluation noteNo Information[facility] Other Evaluation noteNo assessment information available [facility] Work Phone: Evaluation note* Diagnosis Onset Date Resolution Status Admit Date 9 weeks gestation of acute September 14, 2 024 10:35am Right calf pain acute September 14, 2024 10:35am Right leg swelling acute Novemb er 2023 10:35am [facility] Work Phone: Hisv[facility]q general Narrative - Reported* Type Description Date Surgical History [place] teeth extraction Surgical History Planter wart removed right foot 2010 Hospitalization History See Above [employer] [facility] Other [facility] general Narrative - Reported* Type Description Date Medical History Depression Medical History Anxiety Surgical History [place] teeth extraction Surgical History Planter wart removed right foot 2010 Hospitalization History See Above [employer] [facility] Other Summary Purpose Family History Relationship Condition Age at Onset Recorded Date/T mark father Heart disease Unknown Advance Directives Advance Directive Response Recorded Date/ Time Advance Directives No December 10:33am Reason for Referral Reason evaluate Diagnosis 1 Insulin resistance ( E88.819) [facility] Referring Provider First Name Mirta Referring Provider Last Name Paxton Referring Provider Specialty Nurse Pract itioner Referred Organization [facility] Referred Provider Yeison Sweet Referred Address ,[place], [place],[address] Referred Provider Specialty OB - Gynecol ogy Referral Priority Routine Chief Complaint and Reason for Visit Chief Complaint Admit Date swollen leg, painful to walk September 142023 10:35am Reason for Visit Admit Date 9 weeks gestation of September 14, 2024 10:35am Right calf pain September 14, 2024 10:35am Right leg swelling September 14, 2024 10:35am Additional Source Comments REASON FOR VISIT (unrecogniz ed section and content) UR SXSWMN InitialCancelled W MN apptWMN F/U, WMN InitialDS Saxenda denied1 month Follow up, WMN F/U, WMN InitialDS patient cancelledDCS Saxenda appeal deniedEstablishNo InformationUrgent care and Irregular cyclesLEFT WRIST WITH INJURY INFORMATION SOURCE (unrecogn ized section and content) DATE CREATED AUTHOR 03/08/2023 [facility] DATE CREATED AUTHOR AUTHOR'S ORGANIZ ATION 09/24/2023 [facility] DATE CREATED AUTHOR AUTHOR'S ORGANIZ ATION 12/06/2023 [facility] DATE CREATED AUTHOR AUTHOR'S ORGANIZ ATION 04/24/2024 [facility] EPIC Goals (unrecognized section and content) Goals may be documented in a n alternate section Care Teams (unrecognized sec tion and content) Team Status: Active Member Role Status Dates Leticia Puentes APRN ENGINEER GEOPH[employer] LABORATORY-C Primary Care Provider Active Team Status: Inactive Member Role Status Dates Leticia Puentes APRN ENGINEER [employer]ORATORY-C Primary Care Provider Active Start: November 29, 2023 End: November 29, 2023 Araceli Hinojosa NP-C Attending Provider Active S tart: November 29, 2023 End: November 29, 2023 Team Status: Active Member Role Status Dates Mirta Matta APRN NP-C Primary Care Provider Active Team Status: Inactive Member Role Status Dates Leticia Puentes APRN ENGINEER GEOPHYS[employer]ORATORY-C Primary Care Provider Active Start: September 14, 2024 End: September 14, 2024 Mirta Matta APRN ENGINEER GEOPHYS[employer] LABORATORY-C Attending Provider Active Start: September End: September 14, 2024 FOR RECORDS PERTAINING TO PATIENTS WHO ARE OR HAVE BEEN ENROLLED IN A CHEMICAL DEPENDENCY/SUBSTANCEABUSE PROGRAM, SOME INFORMATION MAY BE OMITTED. This clinical summary was aggregated from multiple sources. Caution should be exercised in using it in the provision of clinical care. This summary normalizes information from multiple sources, and as a consequence, information in this document may materially change the coding, format and clinical context of patient data. In addition, data may be omitted in some cases. CLINICAL DECISIONS SHOULD BE BASED ON THE PRIMARY CLINICAL RECORDS. [email or web address] [facility]. provides no warranty or guarantee of the accuracy or completeness of information in this document.
== END 2024-09-25 09:32 | disposition home or self-care (01) ==
LOC: NOMS 09:31
PROVIDERS: PCP Nurse Practitioner Family; Visit Provider Obstetrics & Gynecology
DX: Z34.01 Encounter for supervision of normal first pregnancy, first trimester (principal); Z3A.10 10 weeks gestation of pregnancy; N92.6 Irregular menstruation, unspecified
CPT/HCPCS: 76817

== ENCOUNTER 2024-11-02 09:57 | Outpatient (OUT) | payer OTHER, SELFPAY ==
--- OUTSIDE RECORDS SUMMARY | 2024-11-02 10:15 | XMS_ITS | CCD ---
Author Organization [facility] Care Team Providers Care Regional Transportation Manager Name Role Phone Terri Medina Unavailable Scally, Janette Unavailable SCALLY, JANETTE Attending Unavailable SCALLY, JANETTE Consulting Unavailable SCALLY, JANETTE Admitting Unavailable DELORIS, LETICIA Primary Care Unavailable Deloris RN SURGICAL PCU-C, Leticia Neville Attending Unavailable Deloris RN SURGICAL PCU-C, Leticia Neville Primary Care Unavailable Mirta Matta Unavailable Deloris, CUSTOMER SUPPORT SPECIALIST Leticia Neville Primary Care Provider DANNY Hinojosa-C Araceli Attending Provider Deloris, Leticia A Admitting Unavailable Deloris, Leticia A Attending Unavailable Deloris, Leticia A Primary Care Unavailable Micaela, Araceli Attending Unavailable Micaela, Araceli Admitting Unavailable Deloris, Leticia A Primary Care Unavailable Micaela, Araceli Unavailable Mirta Matta NP Primary Care Provider SAMARA BROWER Attending Unavailable APLING, SAMARA Gallo Attending Unavailable APLING, SAMARA B Referring Unavailable APLING, SAMARA Gallo Attending Unavailable APLING, SAMARA B Referring Unavailable KEE, YEISON Attending Unavailable APLING, SAMARA Gallo Attending Unavailable KEE, YEISON Referring Unavailable KEE, YEISON Attending Unavailable KEE, YEISON Attending Unavailable Medications Current Medications Medication Drug Class(es) Dates Sig (Normalized) Sig (Original) Cholecalciferol (5 sources) Vitamin D Start: 04-05-2023 take 1 capsule by mouth every week Cholecalciferol 1.25 MG (95738 UT) 1 capsule Orally weekly for 56 days follow week 9 with D3 4000 IU daily Apr, Active take 1 capsule by mouth every we ek Cholecalciferol 1.25 MG (39721 UT) 1 capsule Orally weekly for 56 [...] Daily as needed September 14, 2024 12:00am medroxyPROGESTERone acetate 10 mg oral tablet (1 source) Progestin Start: 01-14-2024 End: 09-25-2024 take 1 tablet by mouth once daily medroxyPROGESTERone (Provera) 10 MG tablet Indications: Abnormal uterine bleeding (AUB) Take 1 tablet (10 mg) by mouth Daily Take 1 tablet by mouth daily for 7 days beginning on day 16 of the menstrual cycle. 14 tablet 3 01/14/2024 09/25/2024 Discontinued (Therapy completed) 24 hr metFORMIN hydrochloride 500 mg extended release oral tablet (4 sources) Biguanide Start: 01-14-2024 End: 01-13-2025 take 1 tablet by mouth every twenty-four hours at mealtime metFORMIN XR (Glucophage-XR) 500 MG 24 hr tablet Indications: Abnormal uterine bleeding (AUB) Take 1 tablet (500 mg) by mouth in the evening. Take with meals Do not crush, chew, or split. 30 tablet 11 01/14/2024 10/26/2024 Discontinued multivitamin () 27-0.8 MG tablet (4 sources) Start: 08-29-2023 take 1 tablet by mouth in the morning multivitamin () 27-0.8 MG tablet Take 1 tablet by mouth in the morning. 08/29/2023 Active ondansetron 4 mg disintegrating oral tablet (3 sources) Serotonin-3 Receptor Antagonist Start: 09-15-2024 End: 10-15-2024 take 1 tablet by mouth every six hours for nausea ondansetron ODT (Zofran-ODT) 4 MG disintegrating tablet Indications: Nausea and vomiting in Take 1 tablet (4 mg) by mouth every 6 (six) hours if needed for nausea or vomiting 30 tablet 2 09/15/2024 10/15/2024 Active take 1 tablet by champ th every eight hours as needed for nausea and vomiting ondansetron (Zofran) 4 MG tablet Take 4 mg by mouth every 8 (eight) hours if needed for nausea or vomiting Active Fnbjgu51-Zedo Fum-Folic Ac-Om3 (One Daily ) 28-800-440 mg-mcg-mg combo pack (1 source) Start: 09-14-2024 Xjdqfs33-Sanc Fum-Folic Ac-Om3 (One Daily ) 28-800-440 mg-mcg-mg [...] other viral communicable diseases Episodic Menstrual disorders (3 sources) Irregular periods; Translations: [Irregular menstruation, unspecified] [...] obesity due to excess calories Chronic Other and delivery including normal (7 sources) ; Translations: [Encounter for supervision of normal , unspecified, unspecified trimester] Onset: 10-26-2024 09-25-2024 Episodic Other screening for suspected conditions (not mental disorders or infectious disease) (4 sources) Patient encounter status; Translations: [Encounter for screening for diabetes mellitus] 10-26-2024 Episodic Other skin disorders (3 sources) Nonscarring hair [...] ; Translations: [ state, incidental] 09-14-2024 Episodic Residual codes; unclassified (5 sources) Gestation period, 15 weeks; Translations: [15 weeks gestation of ] Onset: 10-26-2024 10-26-2024 Episodic Unclassified (1 source) Pain in left wrist; Translations: [Pain in left wrist] Onset: 11-29-2023 Unclassified (1 source) Dietary counseling and surveillance; Translations: [Dietary counseling and surveillance] Onset: 05-13-2023 Unclassified (3 sources) OB Reminders Onset: 10-07-2024 10-07-2024 Past or Other Problems Problem Classification Problem Date Documented Da te Episodic/Chronic Unclassified (1 source) Insulin resistance E88.819 Results Test Name Value Interpretation Reference Range Facility Urinalysis macro (dipstick) panel (U)Ordered By: Lexi Momin on 10-26-2024 Bilirubin, UA Negative Negative - 4(70) +++ mg/dL [facility] Work Phone: Blood, UA Negative Negative - 50 Sekou/mcL [facility] Work Phone: Clarity, UA Clear NOM [employer] Work Phone: Color, UA Yellow NOM [employer] Work Phone: Glucose, UA Positive Negative - 2000(110) ++++ mg/dL [facility] Healthcare Work Phone: Comment on above: 500 Interpretation and review of laboratory results Abnormal [facility] [employer] Work Phone: Ketones, UA Positive Negative - 160(16) ++++ mg/dL [facility] [employer] Work Phone: Comment on above: 15 Leukocytes, UA Negative Negative - 500+++ Laine/mcL [facility] [employer] Work Phone: Nitrite, UA Negative Negative - Positive [facility] [employer] Work Phone: pH, UA 5.5 5 - 9 [facility] [employer] Work Phone: Protein, UA Positive Negative - 1999(20) ++++ mg/dL [facility] [employer] Work Phone: Comment on above: 30 Spec Grav, UA 1.03 1 - 1.03 [facility] [employer] Work Phone: Urobilinogen, UA 0.2 0.2 - 12 mg/dL [facility] [employer] Work Phone: [facility] [employer] Work Phone: HCG ( test) Ql (U)o n 09-25-2024 Interpretation and review of laboratory results Abnormal [facility] [employer] Test, Ur Positive Negative [facility] [employer] Urinalysis macro (dipstick) panel (U)on 09-25-2024 Bilirubin, UA Negative Negative - 4(70) +++ mg/dL [facility] Blood, UA Negative Negative - 50 Sekou/mcL [facility] Clarity, UA Clear [facility] [employer] Color, UA Yellow [facility] [employer] Glucose, UA Negative Negative - 1999(110) ++++ mg/dL [facility] Interpretation and review of laboratory results Normal [facility] [employer] Ketones, UA Negative Negative - 160(16) ++++ mg/dL [facility] Leukocytes, UA Negative Negative - 500+++ Laine/mcL [facility] Nitrite, UA Negative Negative - Positive [facility] pH, UA 5.5 5 - 9 [facility] [employer] Protein, UA Negative Negative - 1999(20) ++++ mg/dL [facility] Spec Grav, UA 1.02 1 - 1.03 [facility] Urobilinogen, UA 1.0 0.2 - 12 mg/dL [facility] [employer] US PELVIC COMPLETE W/ TVon 0 02-18-2024 [...] 3V*on 2023 XR wrist LT min 3V* [facility] [employer] Other XR wrist LT min 3V* [facility] [employer] Other XR wrist LT min 3V* [address] [place] [address] [employer] Other XR wrist LT min 3V* [place] [address] [employer] Other XR wrist LT min 3V* XRay Report Nort [employer] Other XR wrist LT min 3V* Signed [employer] Other XR wrist LT min 3V* Patient: Sandra Colon MR#: [id number] [employer] Other XR wrist LT min 3V* 136[address] [employer] Other XR wrist LT min 3V* : 1990 Acct:[id number] [employer] Other XR wrist LT min 3V* Age/Sex: 33 / F ADM Date: 11/29/23 [employer] Other XR wrist LT min 3V* Loc: XDUCLY Room: Type: REG CLI [employer] Other XR wrist LT min 3V* Attending Dr: Araceli ALEX [employer] Other XR wrist LT min 3V* Copies to: ISAI Fisher [employer] Other XR wrist LT min 3V* Ordering Provider: ISAI Fisher [employer] Other XR wrist LT min 3V* Date of Service: 11/29/23 [employer] Other XR wrist LT min 3V* XR/XR wrist LT min 3V*: LEFT WRIST INJURY [employer] Other XR wrist LT min 3V* LEFT WRIST - 4 views [employer] Other XR wrist LT min 3V* CLINICAL HISTORY: Patient fell on steps this morning now with pain and swelling left wrist. [employer] Other XR wrist LT min 3V* COMPARISON: None [employer] Other XR wrist LT min 3V* FINDINGS: [employer] Other XR wrist LT min 3V* No focal soft tissue abnormality. A subtle linear lucency is seen involving the distal radius [employer] Other XR wrist LT min 3V* possibly representing a nondisplaced fracture. Distal ulna appears intact. Carpus appears intact. No [employer] Other XR wrist LT min 3V* bony erosions. [facility] [employer] Other XR wrist LT min 3V* XR/XR wrist LT min 3V* [employer] Other XR wrist LT min 3V* IMPRESSION: [employer] Other XR wrist LT min 3V* A SUBTLE LINEAR LUCENCY IS SEEN INVOLVING THE DISTAL RADIUS POSSIBLY REPRESENTING A NONDISPLACED [employer] Other XR wrist LT min 3V* FRACTURE. FOLLOW-UP IS RECOMMENDED. [employer] Other XR wrist LT min 3V* Impression dictated by: Tremaine Larsen Jr., D.O.11/29/2023 10:19 AM [employer] Other XR wrist LT min 3V* Dictation Location: [place] [address] [employer] Other XR wrist LT min 3V* Transcribed By: PWS 11/29/23 1019 [employer] Other XR wrist LT min 3V* Dictated By: Tremaine Larsen Jr, DO 11/29/23 1017 [employer] Other XR wrist LT min 3V* Signed By: [employer] Other XR wrist LT min 3V* 11/29/23 1019 No rt [employer] Other XR wrist LT min 3V* [facility] [place] [address] [place] [address] XRay Report Signed Patient: Sandra Colon MR#: [id number] : 1990 Acct:[id number] Age/Sex: 33 / F ADM Date: 11/29/23 Loc: XDUCLY Room: Type: [facility] Attending Dr: Araceli ALEX Copies to: ISAI [...] RECOMMENDED. Impression dictated by: Tremaine Larsen Jr., Ty11/29/2023 10:19 AM Dictation Location: [place] [address] Transcribed By: [facility] 11/29/23 1019 Dictated By: Tremaine Larsen Jr, DO 11/29/23 1017 Signed By: 11/29/23 1019 Normal [facility] LIPID PROFILEon 03-02-2023 CHOL-HDL RATIO NORM SEE BELOW Normal [facility] Comment on above: Result Comment: 3.3 - 4.4 LOW RISK 4.4 - 7.1 AVERAGE RISK 7.1 - 11.0 MODERATE RISK >11.0 HIGH RISK Performed By: #### L IPID, CMP, TSHRFT4 #### [facility] [address] [place] [address] [address] Aruna Lopez Cholesterol [Mass/Vol] 264 mg/dL Critically high <=200 [facility] Comment on above: Performed By: #### L IPID, CMP, TSHRFT4 #### [facility] [address] [address] [address] Aruna Lopez Cholesterol in HDL [Mass/Vol] 46 mg/dL Normal 40-60 [facility] Comment on above: Performed By: #### L IPID, CMP, TSHRFT4 #### [facility] [address] [address] [address] Aruna Lopez Cholesterol in LDL [Mass/Vol] 193.0 mg/dL Normal [facility] Comment on above: Performed By: #### L IPID, CMP, TSHRFT4 #### [facility] [address] [address] [address] Aruna Lopez Cholesterol.total/C holesterol in HDL [Mass ratio] 5.7 {ratio} Normal [facility] Comment on above: Performed By: #### L IPID, CMP, TSHRFT4 #### [facility] [address] [address] [address] Aruna Lopez HDL NORMAL > or = 60 mg/dl - LOW CARDIOVASCULAR RISK <40 mg/dl - HIGH CARDIOVASCULAR RISK Normal [facility] Comment on above: Performed By: #### L IPID, CMP, TSHRFT4 #### [facility] [address] [address] [address] Aruna Lopez LDL CALC NORMAL SEE BELOW Normal [facility] Comment on above: Result Comment: <100 mg/dl OPTIMAL 100 - 129 mg/dl NEAR OR ABOVE OPTIMAL 130 - 159 mg/dl BORDERLINE HIGH 160 - 189 mg/dl HIGH >190 mg/dl VERY HIGH Performed By: #### L IPID, CMP, TSHRFT4 #### [facility] [address] [address] [address] Aruna Lopez Triglyceride [Mass/Vol] 125 mg/dL Normal <=150 [facility] Comment on above: Performed By: #### L IPID, CMP, TSHRFT4 #### [facility] [address] [address] [address] Aruna Lopez VLDL CALC 25.0 mg/dL Normal [facility] Comment on above: Performed By: #### L IPID, CMP, TSHRFT4 #### [facility] [address] [address] [address] Aruna Lopez PROF 14(COMP METB)on 023 Albumin [Mass/Vol] 3.2 g/dL Critically low 3.4-5.0 Th [facility] Comment on above: Performed By: #### L IPID, CMP, TSHRFT4 #### [facility] [address] [address] [address] Aruna Lopez Albumin/Globulin [Mass ratio] 0.8 {ratio} Normal [facility] Comment on above: Performed By: #### L IPID, CMP, TSHRFT4 #### [facility] [address] [address] [address] Aruna Lopez ALP [Catalytic activity/Vol] 107 U/L Normal 46-116 [facility] Comment on above: Performed By: #### L IPID, CMP, TSHRFT4 #### [facility] [address] [address] [address] Aruna Lopez ALT [Catalytic activity/Vol] 17 U/L Normal 14-59 [facility] Comment on above: Performed By: #### L IPID, CMP, TSHRFT4 #### [facility] [address] [address] [address] Aruna Lopez Anion gap [Moles/Vol] 8.0 mmol/L Normal [facility] Comment on above: Performed By: #### L IPID, CMP, TSHRFT4 #### [facility] [address] [place] [address] Dr. Aruna Lopez AST [Catalytic activity/Vol] 29 U/L Normal 15-37 [facility] Comment on above: Performed By: #### L IPID, CMP, TSHRFT4 #### [facility] [address] [place] [address] Dr. Aruna Lopez Bilirubin [Mass/Vol] 0.5 mg/dL Normal 0.2-1.0 [facility] Comment on above: Performed By: #### L IPID, CMP, TSHRFT4 #### [facility] [address] [place] [address] Dr. Aruna Lopez Calcium [Mass/Vol] 8.9 mg/dL Normal 8.5-10.1 [facility] Comment on above: Performed By: #### L IPID, CMP, TSHRFT4 #### [facility] [address] [place] [address] Dr. Aruna Lopez Chloride [Moles/Vol] 105 mmol/L Normal 98-107 [facility] Comment on above: Performed By: #### L IPID, CMP, TSHRFT4 #### [facility] [address] [place] [address] Dr. Aruna Lopez CO2 [Moles/Vol] 29.6 mmol/L Normal 21.0-32.0 [facility] Comment on above: Performed By: #### L IPID, CMP, TSHRFT4 #### [facility] [address] [place] [address] Dr. Aruna Lopez Creatinine [Mass/Vol] 0.68 mg/dL Normal 0.55-1.02 [facility] Comment on above: Performed By: #### L IPID, CMP, TSHRFT4 #### [facility] [address] [address] [address] Aruna Lopez EGFR-AF CHINESE >60 Normal >=60 [facility] Comment on above: Performed By: #### L IPID, CMP, TSHRFT4 #### [facility] [address] [address] [address] Aruna Lopez EGFR-NON AF CHINESE >60 Normal >=60 [facility] Comment on above: Performed By: #### L IPID, CMP, TSHRFT4 #### [facility] [address] [address] [address] Aruna Lopez Globulin (S) [Mass/Vol] 4.1 g/dL Normal [facility] Comment on above: Performed By: #### L IPID, CMP, TSHRFT4 #### [facility] [address] [place] [address] Dr. Aruna Lopez Glucose [Mass/Vol] 98 mg/dL Normal 74-106 [facility] Comment on above: Performed By: #### L IPID, CMP, TSHRFT4 #### [facility] [address] [address] [address] Aruna Lopez Potassium [Moles/Vol] 4.6 mmol/L Normal 3.5-5.1 [facility] Comment on above: Performed By: #### L IPID, CMP, TSHRFT4 #### [facility] [address] [address] [address] Aruna Lopez Protein [Mass/Vol] 7.3 g/dL Normal 6.4-8.2 [facility] Comment on above: Performed By: #### L IPID, CMP, TSHRFT4 #### [facility] [address] [place] [address] Dr. Aruna Lopez Sodium [Moles/Vol] 138 mmol/L Normal 136-145 [facility] Comment on above: Performed By: #### L IPID, CMP, TSHRFT4 #### [facility] [address] [place] [address] Dr. Aruna Lopez Urea nitrogen [Mass/Vol] 9.0 mg/dL Normal 7.0-18.0 [facility] Comment on above: Performed By: #### L IPID, CMP, TSHRFT4 #### [facility] [address] [place] [address] Dr. Aruna Lopez Urea nitrogen/Creatinine [Mass ratio] 13.2 mg/mg Normal [facility] Comment on above: Performed By: #### L IPID, CMP, TSHRFT4 #### [facility] [address] [place] [address] Dr. Aruna Lopez TSH W/ REFLEX TO FT4on 03-02 TSH 1.177 uIU/mL Normal 0.358-3.740 [facility] Comment on above: Performed By: #### L IPID, CMP, TSHRFT4 #### [facility] [address] [place] [address] Dr. Aruna Lopez VITAMIN B12on 03-02-2023 Cobalamin (Vitamin B12) [Mass/Vol] 261.0 pg/mL Normal 193.0-986.0 [facility] Comment on above: Performed By: #### V RACHEAL VITB12 #### [facility] [address] [place] [address] Dr. Aruna Lopez VITAMIN D 25 OHon 03-02-2023 VIT D 25-OH 15.6 ng/mL Normal [facility] Comment on above: Performed By: #### Phyllis SPRINGER VITB12 #### [facility] [address] [place] [address] Dr. Aruna Lopez VIT D RANGES SEE BELOW Normal [facility] Comment on above: Result Comment: <20 ng/mL Vit D deficient 20 - <30 ng/mL Vit D insufficient 30 - 100 ng/mL Vit D sufficient >100 ng/mL Potential Toxicity Performed By: #### V ITCHAVA, VITB12 #### [facility] [address] [place] [address] Dr. Aruna Lopez COVID Quick Testingon 2021 Result Negative [employer] Other Quick Strepon 09-11-2022 S. pyogenes Org specific cx Ql (Throat) Negative [facility] [employer] Other Quick Strep [facility] [employer] Other Vital Signs Date Time Vital Sign Value Performing Clinician Facility 10-26-2024 09:59-0500 Body mass index (BMI) [Ratio] 47.08 kg/m2 Yeison Kee DO Work Phone: [facility] 10-26-2024 09:59-0500 Body weight 120.57 kg Yeison Kee DO Work Phone: [facility] 10-26-2024 09:59-0500 Diastolic blood pressure 80 mm[Hg] [employer] DO Work Phone: [facility] 10-26-2024 09:59-0500 Systolic blood pressure 120 mm[Hg] [employer] DO Work Phone: [facility] 09-25-2024 10:29-0500 Body mass index (BMI) [Ratio] 47.65 kg/m2 [facility] Nurse [facility] 09-25-2024 10:29-0500 Body weight 122.02 kg [facility] Nurse [facility] 09-25-2024 10:29-0500 Diastolic blood pressure 72 mm[Hg] [facility] Nurse [facility] 09-25-2024 10:29-0500 Systolic blood pressure 120 mm[Hg] [facility] Nurse [facility] 09-14-2024 10:46-0500 Body height 160.02 cm [facility] 09-14-2024 10:46-0500 Body mass index (BMI) [Ratio] 47.8 kg/m2 [facility] 09-14-2024 10:46-0500 Body temperature 95.6 [degF] [facility] 09-14-2024 10:46-0500 Body weight 122.55 kg [facility] 09-14-2024 10:46-0500 Diastolic blood pressure 84 mm[Hg] [facility] 09-14-2024 10:46-0500 Heart rate 102 /min [facility] 09-14-2024 10:46-0500 SaO2% (BldA) [Mass fraction] 96 % [facility] 09-14-2024 10:46-0500 Systolic blood pressure 128 mm[Hg] [facility] 12-05-2023 13:00-0500 Body height 160.02 cm Mirta Matta Other [employer] Other 12-05-2023 13:00-0500 Body mass index (BMI) [Ratio] 48.18 kg/m2 Mirta Matta Other [employer] Other 12-05-2023 13:00-0500 Body weight 123.38 kg Mirta Matta Other [employer] Other 12-05-2023 13:00-0500 Diastolic blood pressure 78 mm[Hg] Mirta Matta Other [employer] Other 12-05-2023 13:00-0500 SaO2% (BldA) [Mass fraction] 98 % Mirta Matta Other [employer] Other 12-05-2023 13:00-0500 Systolic blood pressure 122 mm[Hg] Mirta Matta Other [employer] Other 11-29-2023 09:10-0500 Body height 160.02 cm Araceli Hinojosa Other [employer] Other 11-29-2023 09:10-0500 Body mass index (BMI) [Ratio] 21.93 kg/m2 Araceli Hinojosa Other [employer] Other 11-29-2023 09:10-0500 Body temperature 98.7 [degF] Araceli Hinojosa Other [employer] Other 11-29-2023 09:10-0500 Body weight 56.16 kg Araceli Hinojosa Other [employer] Other 11-29-2023 09:10-0500 Diastolic blood pressure 88 mm[Hg] Araceli Hinojosa Other [employer] Other 11-29-2023 09:10-0500 Respiratory rate 18 /min Araceli Hinojosa Other [employer] Other 11-29-2023 09:10-0500 SaO2% (BldA) [Mass fraction] 97 % Araceli Hinojosa Other [employer] Other 11-29-2023 09:10-0500 Systolic blood pressure 133 mm[Hg] Araceli Hinojosa Other [employer] Other 11-25-2023 13:00-0500 Body height 157.48 cm Mirta Matta Other [employer] Other 11-25-2023 13:00-0500 Body mass index (BMI) [Ratio] 50.29 kg/m2 Mirta Matta Other [employer] Other 11-25-2023 13:00-0500 Body weight 124.74 kg Mirta Matta Other [employer] Other 11-25-2023 13:00-0500 Diastolic blood pressure 76 mm[Hg] Mirta Matta Other [employer] Other 11-25-2023 13:00-0500 SaO2% (BldA) [Mass fraction] 98 % Mirta Paxton Other [employer] Other 11-25-2023 13:00-0500 Systolic blood pressure 118 mm[Hg] Mirta Paxton Other [employer] Other 05-13-2023 09:15-0400 Body height 157.48 cm Janette Scally Other [employer] Other 05-13-2023 09:15-0400 Body mass index (BMI) [Ratio] 49.34 kg/m2 Janette Scally Other [employer] Other 05-13-2023 09:15-0400 Body weight 122.38 kg Janette Scally Other [employer] Other 05-13-2023 09:15-0400 Diastolic blood pressure 85 mm[Hg] Janette Scally Other [employer] Other 05-13-2023 09:15-0400 Respiratory rate 18 /min Janette Scally Other [employer] Other 05-13-2023 09:15-0400 SaO2% (BldA) [Mass fraction] 97 % Janette Scally Other [employer] Other 05-13-2023 09:15-0400 Systolic blood pressure 116 mm[Hg] Janette Scally Other [employer] Other 04-05-2023 11:15-0400 Body height 157.48 cm Janette Scally Other [employer] Other 04-05-2023 11:15-0400 Body mass index (BMI) [Ratio] 50.44 kg/m2 Janette Scally Other [employer] Other 04-05-2023 11:15-0400 Body weight 125.1 kg Janette Scally Other [employer] Other 04-05-2023 11:15-0400 Diastolic blood pressure 91 mm[Hg] Janette Scally Other [employer] Other 04-05-2023 11:15-0400 Respiratory rate 16 /min Janette Scally Other [employer] Other 04-05-2023 11:15-0400 SaO2% (BldA) [Mass fraction] 100 % Janette Scally Other [employer] Other 04-05-2023 11:15-0400 Systolic blood pressure 137 mm[Hg] Janette Scally Other [employer] Other 02-01-2023 11:15-0400 Body height 157.48 cm Janette Scally Other [employer] Other 02-01-2023 11:15-0400 Body mass index (BMI) [Ratio] 49.29 kg/m2 Janette Scally Other [employer] Other 02-01-2023 11:15-0400 Body weight 122.25 kg Janette Scally Other [employer] Other 02-01-2023 11:15-0400 Diastolic blood pressure 83 mm[Hg] Janette Scally Other [employer] Other 02-01-2023 11:15-0400 Respiratory rate 18 /min Janette Scally Other [employer] Other 02-01-2023 11:15-0400 SaO2% (BldA) [Mass fraction] 98 % Janette Scally Other [employer] Other 02-01-2023 11:15-0400 Systolic blood pressure 124 mm[Hg] Janette Scally Other [employer] Other 09-11-2022 10:15-0500 Body height 157.48 cm Terri [employer] [employer] Other [employer] Other 09-11-2022 10:15-0500 Body mass index (BMI) [Ratio] 47.55 kg/m2 Terri Medina Other [employer] Other 09-11-2022 10:15-0500 Body temperature 98 [degF] Terri Medina Other [employer] Other 09-11-2022 10:15-0500 Body weight 117.94 kg Terri Medina Other [employer] Other 09-11-2022 10:15-0500 Diastolic blood pressure 91 mm[Hg] Terri Medina Other [employer] Other 09-11-2022 10:15-0500 Respiratory rate 16 /min Terri Medina Other [employer] Other 09-11-2022 10:15-0500 SaO2% (BldA) [Mass fraction] 98 % Terri Medina Other [employer] Other 09-11-2022 10:15-0500 Systolic blood pressure 142 mm[Hg] Terri Medina Other [employer] Other Encounters Encounter Date Encounter Type Care Provider Facility Start: 10-26-2024 End: 10-26-2024 Bamboo flowsheet Yeison Kee DO Work Phone: [facility] Start: 10-26-2024 End: 10-26-2024 Bamboo flowsheet Yeison Kee DO Work Phone: [facility] Start: 10-26-2024 End: 10-26-2024 flow sheet Yeison Kee DO Work Phone: [facility] Comment on above: 15 weeks gestation o f ; Second trimester ; Diabetes mellitus screening; Screening, , for anatomic survey Start: 10-26-2024 End: 10-26-2024 ambulatory YEISON KEE Not Available Start: 09-25-2024 End: 09-25-2024 Office outpatient visit 5 minutes [facility] Eke Nurse [facility] Comment on above: GA: 10w5d Start: 09-25-2024 End: 09-25-2024 ambulatory SAMARA APLING Not Available Start: 09-14-2024 End: 09-14-2024 ambulatory [facility] Work Phone: Start: 09-14-2024 End: 09-14-2024 Patient encounter procedure [facility] Work Phone: Start: 04-22-2024 End: 04-22-2024 ambulatory YEISON KEE Not Available Start: 02-18-2024 End: 02-18-2024 ambulatory YEISON KEE Not Available Start: 02-12-2024 End: 02-12-2024 ambulatory SAMARA B APLING Not Available Start: 01-14-2024 End: 01-14-2024 ambulatory YEISON KEE Not Available Start: 01-13-2024 End: 01-13-2024 ambulatory SAMARA Gallo APLING Not Available Start: 12-23-2023 End: 12-23-2023 ambulatory SAMARA Gallo APLING Not Available Start: 12-05-2023 End: 12-05-2023 ambulatory Mirta Matta Other [employer] Other Start: 12-05-2023 Office outpatient vi sit 15 minutes Mirta Matta [facility] Start: 12-02-2023 Telephone encounter Mirta Alexi mcdonald [facility] Start: 12-02-2023 End: 12-02-2023 ambulatory SAMARA Gallo APLING [employer] Other Start: 11-29-2023 Office outpatient vi sit 15 minutes Araceli Hinojosa [facility] Start: 11-29-2023 End: 11-29-2023 ambulatory Araceli Hinojosa Facility:[facility] Start: 11-29-2023 End: 11-29-2023 ambulatory CUSTOMER SUPPORT SPECIALIST Leticia Puentes Work Phone: [facility] Work Phone: Start: 11-29-2023 End: 11-29-2023 Patient encounter procedure CUSTOMER SUPPORT SPECIALISTMarco A Puentes Work Phone: [facility] Work Phone: Start: 11-25-2023 End: 11-25-2023 ambulatory Mirta Matta Other [employer] Other Start: 11-25-2023 Encounter for genera l adult medical examination without abnormal findings Mirta Matta [facility] Start: 11-25-2023 Initial preventive medicine new pt age 18-39yrs Mirta Matta [facility] Start: 08-29-2023 End: 08-30-2023 ambulatory Leticia Puentes RN SURGICAL PCU-C Facility:[facility] Start: 06-24-2023 End: 06-24-2023 ambulatory Janette Scally Other [employer] Other Start: 06-24-2023 Telephone encounter Janette Scally [facility] Start: 05-31-2023 End: 05-31-2023 ambulatory Janette Scally Other [employer] Other Start: 05-31-2023 Telephone encounter Janette Scally [facility] Start: 05-13-2023 [facility] Weight Management f/u Janette Scally [facility] Start: 05-13-2023 End: 05-14-2023 ambulatory Leticia Puentes [employer] Other Start: 04-23-2023 End: 04-23-2023 ambulatory Janette Scally Other [employer] Other Start: 04-23-2023 Telephone encounter Janette Scally [facility] Start: 04-05-2023 [facility] Weight Management f/u Janette Scally [facility] Start: 04-05-2023 End: 04-05-2023 ambulatory Janette Scally Other [employer] Other Start: 03-04-2023 End: 03-04-2023 ambulatory Janette Scally Other [employer] Other Start: 03-04-2023 Telephone encounter Janette Scally [facility] Start: 03-02-2023 End: 03-03-2023 ambulatory JANETTE SCALLY Facility: Start: 02-01-2023 End: 02-01-2023 ambulatory Janette Scally Other [employer] Other Start: 02-01-2023 Nutrition therapy Janette Scally [facility] Start: 09-11-2022 End: 09-11-2022 ambulatory Terri Medina Other [facility] [employer] Other Start: 09-11-2022 Office outpatient vi sit 15 minutes Terri Medina [facility] Procedures Date Procedure Procedure Detail Performing Clinician Start: 10-26-2024 Urnls dip stick/tabl et rgnt non-auto w/o micrscp Yeison Kee DO Work Phone: Start: 09-25-2024 End: 09-25-2024 Urnls dip stick/tablet rgnt non-auto w/o micrscp Yeison Kee DO Work Phone: Start: 11-29-2023 Plain X-ray of left wrist CUSTOMER SUPPORT SPECIALIST Leticia Deloris Work Phone: Start: 09-02-2023 Microscopic observat ion [Identifier] in Cervix by Cyto stain [facility] Nurse Plan of Treatment Date Care Activity Detail Author Start: 09-02-2028 Screening for malign ant neoplasm of cervix [facility] Start: 11-30-2024 End: 11-30-2024 Patient encounter procedure 11/30/2024 9:30 AM EST Routine [facility] [address] [place] [address] Sanaz Saenz PA [address] [place] [address] [facility] Start: 11-30-2024 End: 11-30-2024 Professional / ancillary services management 11/30/2024 8:30 AM EST Ancillary Procedure [facility] [address] [place] [address] [facility] Start: 10-26-2024 End: 10-26-2025 Measurement of glucose 1 hour after glucose challenge for glucose tolerance test Glucose tolerance, 1 hour Lab Routine 15 weeks gestation of Second trimester Diabetes mellitus screening Expected: 10/26/2024 (Approximate), Expires: 10/26/2025 [facility] Healthcare Work Phone: Comment on above: Expected: 10/26/2024 (Approximate), Expires: 10/26/2025 Start: 10-26-2024 End: 10-26-2025 US for US OB ANATOMY SINGLE W US OB CERVICAL LENGTH Imaging Routine 15 weeks gestation of Second trimester Screening, , for anatomic survey Expected: 10/26/2024 (Approximate), Expires: 10/26/2025 [facility] Healthcare Comment on above: Expected: 10/26/2024 (Approximate), Expires: 10/26/2025 Start: 10-26-2024 End: 10-26-2024 Patient encounter procedure [facility] Comment on above: 15 weeks gestation o f ; Second trimester Start: 09-25-2024 End: 09-25-2025 ABO/Rh ABO/Rh Lab Routine Missed menses , unspecified gestational age Expected: 09/25/2024 (Approximate), Expires: 09/25/2025 [facility] Healthcare Comment on above: Expected: 09/25/2024 (Approximate), Expires: 09/25/2025 Start: 09-25-2024 End: 09-25-2025 Blood type and Indirect antibody screen panel - Blood Type and screen Lab Routine Missed menses , unspecified gestational age Expected: 09/25/2024 (Approximate), Expires: 09/25/2025 [facility] Work Phone: Comment on above: Expected: 09/25/2024 (Approximate), Expires: 09/25/2025 Start: 09-25-2024 End: 09-25-2025 Drugs of abuse panel - Urine by Screen method Rapid drug screen, urine Lab Routine , unspecified gestational age Encounter for supervision of normal first in first trimester Expected: 09/25/2024 (Approximate), Expires: 09/25/2025 [facility] Healthcare Comment on above: Expected: 09/25/2024 (Approximate), Expires: 09/25/2025 Start: 09-25-2024 End: 09-25-2025 US Pelvis transvaginal US OB transvaginal Imaging Routine Missed menses Expected: 09/25/2024 (Approximate), Expires: 09/25/2025 [facility] Comment on above: Expected: 09/25/2024 (Approximate), Expires: 09/25/2025 Start: 07-05-2024 Influenza vaccination Influenza Vacc ine (#1) [facility] Bacteria identified in Urine by Culture Urine culture Microbiology Routine Missed menses Ordered: 09/25/2024 [facility] Comment on above: Ordered: 09/25/2024 CBC W Auto Different ial panel - Blood CBC and differential Lab Routine Missed menses , unspecified gestational age Ordered: 09/25/2024 [facility] Comment on above: Ordered: 09/25/2024 Hemoglobin A1c/Hemoglobin.total in Blood Hemoglobin A1c Lab Routine Missed menses , unspecified gestational age Ordered: 09/25/2024 [facility] Comment on above: Ordered: 09/25/2024 Hepatitis B virus surface Ag [Presence] in Serum or Plasma by Immunoassay Hepatitis B surface antigen Lab Routine Missed menses , unspecified gestational age Ordered: 09/25/2024 [facility] Comment on above: Ordered: 09/25/2024 Hepatitis C virus Ab [Presence] in Serum or Plasma by Immunoassay Hepatitis C antibody Lab Routine Missed menses , unspecified gestational age Ordered: 09/25/2024 [facility] Comment on above: Ordered: 09/25/2024 HIV-1/HIV-2 antigen/antibody combination immunoassay HIV-1 and HIV-2 antibodies Lab Routine Missed menses , unspecified gestational age Ordered: 09/25/2024 [facility] Comment on above: Ordered: 09/25/2024 Reagin Ab [Presence] in Serum by RPR RPR Lab Routine Missed menses , unspecified gestational age Ordered: 09/25/2024 [facility] Comment on above: Ordered: 09/25/2024 Rubella antibody, IgG Rubella an tibody, IgG Lab Routine Missed menses , unspecified gestational age Ordered: 09/25/2024 [facility] Comment on above: Ordered: 09/25/2024 US Lower extremity v ein - [facility] Payers Date Payer Category Payer Self-pay 2022 Private Health Insurance [employer] [id number] 1992 Unknown [id number]. 593 1992 Unknown [id number] 2.16.840.1.063146.3.579.2. 718 1992 Unknown [id number] [id number]. 1258 1992 Unknown [id number] 2.16.840.1.078709.3.579.2. 1258 1992 Unknown [id number] 2.16.840.1.912816.3.579.2. 1258 1992 Unknown [id number] 2.16.840.1.742566.3.579.2. 1258 1992 Unknown [id number] 2.16.840.1.143844.3.579.2. 1258 1992 Unknown [id number] 2.16.840.1.644552.3.579.2. 1258 1992 Unknown [id number] 2.16.840.1.938490.3.579.2. 1258 1992 Unknown [id number] 2.16.840.1.010874.3.579.2. 1258 1992 Unknown [id number] 2.16.840.1.606202.3.579.2. 1258 1992 Unknown [id number] 2.16.840.1.876202.3.579.2. 9 1992 Unknown [id number] 2.16.840.1.198925.3.579.2. 1259 1959 Unknown [id number] 2.16.840.1.351596.19 Unknown [id number] 2.16.840.1.198844.19 Unknown [id number] 2.16.840.1.626264.19 Unknown [id number] 2.16.840.1.543811.3.579.2. 531 Unknown [id number] 2.16.840.1.450782.3.579.2. 531 Social History Date Type Detail Facility Start: 02-12-2024 [facility] [employer] Other Start: 1990 Sex Assigned At Female F [facility] Tobacco smoking stat [facility] Unknown if ever smoked [facility] Work Phone: Start: 09-14-2024 Sex Female (finding) [facility] Start: 12-02-2023 Tobacco smoking stat [facility] Never smoked tobacco [facility] Start: 12-02-2023 Tobacco use and exposure Smokeless tobacco non-user [facility] Start: 09-25-2024 End: 10-26-2024 Alcoholic beverage intake Current drinker of alcohol (finding) [facility] Start: 02-12-2024 History of Social function [facility] Start: 07-26-2024 [facility] Start: 1990 Sex assigned at Not on file [facility] Medical Equipment Procedure Code Equipment Code Equipment Origin al Text Equipment Identifier Dates Pen [place] [id number] X 4 MM Start: 04-05-2023 Goals Date Patient Goal Desired Activity /State Personal health goal Clinical Notes 09-11-2022 to 10-26-2024 Yeison Sweet DO - 10/26/2024 9:50 AM Saba Gooden LPN - 09/25/2024 10:00 AM EST Note Date & Type Note Facility 10-26-2024 History of Presen t illness Narrative Reason for Appointment: Patient ID: Sandra Colon is a 34 y.o. female who presents for Routine Visit Patient presents today for Return OB appointment. MEDICATIONS Current Outpatient Medications Medication Instructions multivitamin () 27-0.8 MG tablet 1 tablet, Daily ondansetron (ZOFRAN) 4 mg, Every 8 hours PRN ALLERGIES No Known Allergies PROBLEMS Active Ambulatory Problems Diagnosis Date Noted 15 weeks gestation of 10/26/2024 Second trimester 10/26/2024 Resolved Ambulatory Problems Diagnosis Date Noted No Resolved Ambulatory Problems Past Medical History: Diagnosis Date Depression with anxiety Wrist fracture 2014 HISTORY PAST MEDICAL HISTORY SOCIAL HISTORY Past Medical History: Diagnosis Date Depression with anxiety Wrist fracture 2013 RT wrist Social History Tobacco Use Smoking status: Never Smokeless tobacco: Never Substance Use Topics Alcohol use: Yes Drug use: Not on file FAMILY HISTORY Family History Problem Relation Name Age of Onset Heart disease Father SURGICAL HISTORY Past Surgical History: Procedure Laterality Date PLANTAR'S WART EXCISION RT foot WISDOM TOOTH EXTRACTION REVIEW OF SYSTEMS Review of Systems: Review of Systems All other systems reviewed and are negative. OBJECTIVE Objective: Physical Exam Constitutional: Appearance: Normal appearance. She is well-developed. Cardiovascular: Rate and Rhythm: Normal rate and regular rhythm. Pulmonary: Effort: Pulmonary effort is normal. Breath sounds: Normal breath sounds. Abdominal: General: Bowel sounds are normal. There is no distension. Palpations: Abdomen is soft. Tenderness: There is no abdominal tenderness. There is no guarding or rebound. Musculoskeletal: General: No swelling. Normal range of motion. Right lower leg: No edema. Left lower leg: No edema. Neurological: Mental Status: She is alert and oriented to person, place, and time. Skin: General: Skin is warm and dry. Psychiatric: Mood and Affect: Mood normal. Behavior: Behavior normal. Vitals and nursing note reviewed. Exam conducted with a quarry boss present. Vitals: Estimated body mass index is 47.08 kg/m as calculated from the following: Height as of 04/22/24: 5' 3 . Weight as of this encounter: 265 lb 12.8 oz. BP: 120/80 Patient's last menstrual period was 07/12/2024. ASSESSMENT & PLAN ICD-10-CM 1. 15 weeks gestation of Z3A.15 POCT urinalysis dipstick manually resulted 2. Second trimester Z34.92 POCT urinalysis dipstick manually resulted New OB: Patient presents today for 1st time obstetrics appointment with provider. Patient is currently 15w1d . Patients history has been reviewed in great detail including any potential risks. Patient stated she currently has no complaints. Expectations throughout regarding labs, ultrasounds, and appointments have been discussed with the patient in detail. It was reiterated that the patient is to drink 6-8 glasses of water a day, eat 6 small meals a day, do not consume raw or undercooked meat, and stay away from [facility]. Patient has been consulted regarding any further do's and don'ts of . Patient voiced understanding and all questions and concerns were answered. Orders Placed This Encounter Procedures POCT urinalysis dipstick manually resulted Follow Up: Patient is to return in 4 weeks for routine OB appointment. Documented by Lexi Momin LPN on behalf of: Yeison Sweet DO documented in this encounter [facility] 09-25-2024 History of Presen t illness Narrative Reason for Appointment: Patient ID: Sandra Colon is a 34 y.o. female who presents for Amenorrhea Patient presents today for a Nurse OB Intake appointment. Patient is 10w5d with a Estimated Date of Delivery: 04/18/25 OB History Para Term AB Living 1 SAB IAB Ectopic Multiple Live Births # Outcome Date GA Lbr Agustín/2nd Weight Sex Type Anes PTL Lv 1 Current Current Medications: has a current medication list which includes the following prescription(s): metformin xr, multivitamin, and ondansetron odt. Medical History: Active Ambulatory Problems Diagnosis Date Noted No Active Ambulatory Problems Resolved Ambulatory Problems Diagnosis Date Noted No Resolved Ambulatory Problems Past Medical History: Diagnosis Date Depression with anxiety Wrist fracture 2014 Family History Problem Relation Name Age of Onset Heart disease Father Social History Tobacco Use Smoking status: Never Smokeless tobacco: Never Substance Use Topics Alcohol use: Yes Drug use: Not on file Past Surgical History: Procedure Laterality Date PLANTAR'S WART EXCISION RT foot WISDOM TOOTH EXTRACTION No Known Allergies Vitals: Estimated body mass index is 49.03 kg/m as calculated from the following: Height as of 04/22/24: 5' 3 . Weight as of 04/22/24: 276 lb 12.8 oz. BP: Patient's last menstrual period was 07/12/2024. Assessment/Plan Diagnoses and all orders for this visit: Missed menses - Type and screen; Future - ABO/Rh; Future - CBC and differential - Hemoglobin A1c - RPR - Rubella antibody, IgG - Hepatitis B surface antigen - Hepatitis C antibody - HIV-1 and HIV-2 antibodies - Urine culture - US OB transvaginal; Future - POCT , urine manually resulted - POCT urinalysis dipstick manually resulted , unspecified gestational age - Type and screen; Future - ABO/Rh; Future - CBC and differential - Hemoglobin A1c - RPR - Rubella antibody, IgG - Hepatitis B surface antigen - Hepatitis C antibody - HIV-1 and HIV-2 antibodies - Rapid drug screen, urine; Future Encounter for supervision of normal first in first trimester - Rapid drug screen, urine; Future Nurse Note: OB Intake: Patient presents today for first OB visit. Patients history has been reviewed in great detail including any potential risks. Patient signed consent forms and patient desires testing in both trimesters. Patient currently has no complaints and has been advised to drink 6-8 glasses of water a day, eat no raw or undercooked meat, and stay away from [facility]. Patient has also been advised to not change litter boxes and eat 6 small meals a day. Patient has been consulted regarding the do's and don'ts of . Patient was given labs and all questions and concerns were answered. Follow Up: Patient is to return in 4 weeks for routine OB appointment. Follow Up: Patient is to have labs drawn at directed and return to office for initial OB appointment with provider. Patient may call office as needed with any concerns or questions. Nurse Visit Completed by: Ericka Gooden LPN documented in this encounter [facility] 12-05-2023 Evaluation note Encounter Date Diagnosis Assessment Notes Dec, Left wrist pain (ICD-10 - M25.532) Dec, Closed fracture of left wrist with routine healing, subsequent encounter (ICD-10 - S62.102D) Following with ortho. Has next appt 12/23Dec, Insulin resistance (ICD-10 - E88.819) Would like to a referral to WEATHERIZATION TECHNICIAN as she is trying to start a family and has irregular cycles with insulin resistance. Dec, Irregular menstruation (ICD-10 - N92.6) [employer] Other 01-26-2024 Evaluation note* Encounter Date Diagnosis [...] physician as soon as possible for reevaluation. [employer] Other 01-22-2024 Evaluation note* Encounter Date Diagnosis [...] of this and agrees to this plan. [employer] Other 07-10-2023 Evaluation note* Encounter Date Diagnosis [...] and make recommendations for long-term supplementation with [id number] formulations or prescription grade repletion. May, Family [...] Discussed implications of family history of early [place] in her father <55 years old. May [...] was counseling done by myself, Cathryn CORTEZ. [employer] Other 06-02-2023 Evaluation note* Encounter Date Diagnosis [...] and make recommendations for long-term supplementation with [id number] formulations or prescription grade repletion. Apr, Family [...] Discussed implications of family history of early [place] in her father <55 years old. May [...] was counseling done by myself, Cathryn CORTEZ. [employer] Other 03-31-2023 Evaluation note* Encounter Date Diagnosis [...] and make recommendations for long-term supplementation with gjhn-sen-[id number] formulations or prescription grade repletion. Jan, Family [...] was counseling done by myself, Cathryn CORTEZ. [facility] [employer] Other 11-08-2022 Evaluation note* Encounter Date Diagnosis [...] understanding and is agreeable to treatment plan [employer] Other Evaluation noteNo InformationNort [employer] Other evaluation noteNo assessment information available [facility] Work Phone: evaluation note* Diagnosis Onset Date Resolution Status Admit Date 9 weeks gestation of acute September 14, 10:35am Right calf pain acute September 14, 2024 10:35am Right leg swelling acute Novemb er 2023 10:35am [facility] Work Phone: Evaluation note* Diagnosis Missed menses , unspecified gestational age Encounter for supervision of normal first in first trimester [facility] Diagnosis 15 weeks gestation of Second trimester state, incidental Diabetes mellitus screening Screening for diabetes mellitus Screening, , for anatomic survey Encounter for anatomic survey documented in this encounter [facility] Narrative - Reported* Type Description Date Surgical History [place] teeth extraction Surgical History Planter wart removed right foot 2010 Hospitalization History See Above [employer] Other History general Narrative - Reported* Type Description Date Medical History Depression Medical History Anxiety Surgical History [place] teeth extraction Surgical History Planter wart removed right foot 2010 Hospitalization History See Above [employer] Other Summary Purpose Family History No Family History Records Found Relationship Condition Age at Onset Recorded Date/T mark father Heart disease Unknown Advance Directives No Advanced Directives Records Found Advance Directive Response Recorded Date/ Time Advance Directives No December 10:33am Reason for Referral Reason evaluate Diagnosis 1 Insulin resistance ( E88.819) Referral Organization [facility] desiree Referring Provider First Name Mirta Referring Provider Last Name Luluachelia Referring Provider Specialty Nurse Pract brittani Referred Organization [facility] Referred Provider Yeison Sweet Referred Address ,[place], [place],[address] Referred Provider Specialty OB - Gynecol ogy [...] FOR VISIT (unrecogniz ed section and content) Reason Comments Amenorrhea Reason Comments Routine Visit INFORMATION SOURCE (unrecogn ized section and content) DATE CREATED AUTHOR 03/08/2023 [facility] DATE CREATED AUTHOR AUTHOR'S ORGANIZ ATION 09/24/2023 [facility] DATE CREATED AUTHOR AUTHOR'S ORGANIZ ATION 12/06/2023 [facility] DATE CREATED AUTHOR AUTHOR'S ORGANIZ ATION 10/28/2024 [facility] dical Specialists EPIC Goals (unrecognized section and content) Goals may be documented in a n alternate section Care Teams (unrecognized sec tion and content) Team Status: Active Member Role Status Dates Leticia Puentes APRN RN SURGICAL PCU-C Primary Care Provider Active Team Status: Inactive Member Role Status Dates Leticia Puentes APRN RN SURGICAL PCU-C Primary Care Provider Active Start: November 29, 2023 End: November 29, 2023 Araceli Hinojosa NP-Dahlia Attending Provider Active S tart: November 29, 2023 End: November 29, 2023 Team Status: Active Member Role Status Dates Mirta Matta APRN NP-Dahlia Primary Care Provider Active Team Status: Inactive Member Role Status Dates Leticia Puentes APRN RN SURGICAL PCU-C Primary Care Provider Active Start: September 14, 2024 End: September 14, 2024 Mirta Matta APRN RN SURGICAL [facility] Attending Provider Active Start: September End: September 14, 2024 Regional Transportation Manager Relationship Specialty Start Date End Date Mirta Matta NP [address] [address] [place] [address] PCP - General Family Medicine 09/25/24 Regional Transportation Manager Relationship Specialty Start Date End Date Mirta Matta NP [address] [address] [place] [address] PCP - General Family Medicine 09/25/24 Regional Transportation Manager Relationship Specialty Start Date End Date Mirta Matta NP [facility] [place] [address] PCP - General Family Medicine 09/25/24 FOR RECORDS PERTAINING TO PATIENTS WHO ARE [...] BE BASED ON THE PRIMARY CLINICAL RECORDS. [employer] [facility]. provides no warranty or guarantee of the accuracy or completeness of information in this document.
[2024-11-02 11:31] LABS: Glucose 1 Hour 187 mg/dL (<130)
== END 2024-11-02 09:58 | disposition home or self-care (01) ==
LOC: LAB 09:58
PROVIDERS: PCP Nurse Practitioner Family; Visit Provider Obstetrics & Gynecology
DX: Z34.92 Encounter for supervision of normal pregnancy, unspecified, second trimester (principal); Z13.1 Encounter for screening for diabetes mellitus
CPT/HCPCS: 36415; 82950

== ENCOUNTER 2024-11-12 08:14 | Outpatient (OUT) | payer OTHER, SELFPAY | END 2024-11-12 15:49 | disposition home or self-care (01) | LOC: FBCO 08:15 | PROVIDERS: PCP Nurse Practitioner Family; Visit Provider Obstetrics & Gynecology | DX: O24.410 Gestational diabetes mellitus in pregnancy, diet controlled (principal) | CPT/HCPCS: G0108 ==

== ENCOUNTER 2024-12-28 21:36 | Outpatient (REF) | payer OTHER, SELFPAY ==
--- OUTSIDE RECORDS SUMMARY | 2024-12-28 21:40 | XMS_ITS | CCD ---
Author Organization [facility] Care Team Providers Care Parts Designer Name Role Phone Terri Medina Unavailable Scally, Janette Unavailable SCALLY, JANETTE Attending Unavailable SCALLY, JANETTE Consulting Unavailable SCALLY, JANETTE Admitting Unavailable DELORIS, LETICIA Primary Care Unavailable Deloris FARM MACHINERY MECHANIC-C, Leticia Neville Attending Unavailable Deloris FARM MACHINERY MECHANIC-C, Leticia Neville Primary Care Unavailable Mirta Matta Unavailable Deloris, ABHAY Neville Primary Care Provider [phone] DANNY Hinojosa-C Araceli Attending Provider Deloris, Leticia A Admitting Unavailable Deloris, Leticia Neville Attending Unavailable Deloris, Leticia A Primary Care Unavailable Micaela, Araceli Attending Unavailable Micaela, Araceli Admitting Unavailable Deloris, Leticia Brandt Primary Care Unavailable Micaela, Araceli Unavailable Mirta Matta NP Primary Care Provider SANAZ DAVILA Attending Unavailable APLING, SAMARA Gallo Attending Unavailable APLING, SAMARA Gallo Attending Unavailable APLING, SAMARA B Referring Unavailable APLING, SAMARA B Attending Unavailable APLING, SAMARA B Referring Unavailable KEE, YEISON Attending Unavailable APLING, SAMARA B Attending Unavailable KEE, YEISON Referring Unavailable KEE, YEISON Attending Unavailable KEE, YEISON Attending Unavailable Deloris CONTINUOUS CHURN BUTTERMAKER-Leticia RAMÍREZ Primary Care Provider Medications Current Medications Medication Drug Class(es) Dates Sig (Normalized) Sig (Original) benzocaine 60 mg/ml / isopropyl alcohol 0.7 ml/ml medicated pad (1 source) Standardized Chemical Allergen isopropyl alcohol-benzocaine (ALCOHOL-BENZOCAINE) 70-6 % pads, medicated Apply 1 each topically as needed (Use four times daily to check FSBS). Active Blood Glucose Monitoring Suppl (D-Care Glucometer) w/Device kit (3 sources) Start: 11-05-2024 End: 11-05-2025 Blood Glucose Monitoring Suppl (D-Care Glucometer) w/Device kit Indications: Gestational diabetes mellitus (GDM), antepartum, gestational diabetes method of control unspecified , Elevated glucose tolerance test 1 kit Daily Use four times daily to check FSBS. In the morning prior to breakfast & 1 hour after each meal for a total of 4times daily. 1 kit 11/05/2024 11/05/2025 Active blood-glucose meter (BLOOD GLUCOSE MONITORING) kit (1 source) blood-glucose me ter (BLOOD GLUCOSE MONITORING) kit 1 each by other route once daily. Use four times daily to check FSBS. In the morning prior to breakfast and 1 hour after each meal Active Cholecalciferol (5 sources) Vitamin D Start: 04-05-2023 take 1 capsule by mouth every week Cholecalciferol 1.25 MG (68849 UT) 1 capsule Orally weekly for 56 days follow week 9 with D3 4000 IU daily Apr, Active take 1 capsule by mouth every we ek Cholecalciferol 1.25 MG (16539 UT) 1 capsule Orally weekly for 56 days follow week 9 with D3 4000 IU daily Active 3 ml insulin glargine 100 unt/ml pen injector (3 sources) Insulin Analog Start: 11-30-2024 End: 04-30-2025 inject 10 [IU] by subcutaneous injection at bedtime insulin glargine (Lantus SoloStar) 100 UNIT/ML pen Indications: Hyperglycemia , Gestational Diabetes Inject 10 Units under the skin at bedtime for 150 doses FILL ACCORDING TO INSURANCE COVERAGE 15 mL 12/01/2024 04/30/2025 Active isopropyl alcohol 0.7 ml/ml medicated pad (3 sources) Start: 11-05-2024 Alcohol Swabs (Alcohol Prep Pad) 70 % pads Indications: Gestational diabetes mellitus (GDM), antepartum, gestational diabetes method of control unspecified , Elevated glucose tolerance test Apply 1 Pad topically Daily Use four times daily to check FSBS. 150 each 3 11/05/2024 Active 3 ml liraglutide 6 mg/ml pen [...] 10/26/2024 Discontinued multivitamin () 27-0.8 MG tablet (8 sources) Start: 08-29-2023 take 1 tablet by mouth in the morning multivitamin () 27-0.8 MG tablet Take 1 tablet by mouth in the morning. 08/29/2023 Active ondansetron 4 mg disintegrating oral tablet (8 sources) Serotonin-3 Receptor Antagonist Start: 09-15-2024 End: [...] if needed for nausea or vomiting Active Zlbugb12-Fbwr Fum-Folic Ac-Om3 (One Daily ) 28-800-440 mg-mcg-mg combo pack (1 source) Start: 09-14-2024 Ndoexz61-Gkjh Fum-Folic Ac-Om3 (One Daily ) 28-800-440 mg-mcg-mg combo pack Active PKG PO September 14, 2024 12:00am (4 sources) Active ao136-wgti-jpuni acid ( MULTI) 27-800 mg-mcg tablet (1 source) take 1 capsule by mouth once daily uy090-fkch-wiuyd acid ( MULTI) 27-800 mg-mcg tablet Take 1 capsule by mouth once daily. Active vitamin b6 500 mg oral tablet [...] Classification Problem Date Documented Da te Episodic/Chronic Diabetes or abnormal glucose tolerance complicating ; childbirth; or the puerperium (4 sources) Gestational diabetes mellitus, class A>2< ; Translations: [Gestational diabetes mellitus in , insulin controlled] 11-30-2024 Episodic Disorders of lipid metabolism (19 sources) Hyperlipidemia; [...] calories Chronic Other and delivery including normal (13 sources) ; Translations: [Encounter for supervision of [...] state, incidental] 09-14-2024 Episodic Residual codes; unclassified (9 sources) Gestation period, 15 weeks; Translations: [15 weeks gestation of ] Onset: 10-26-2024 10-26-2024 Episodic Residual codes; unclassified (2 sources) Gestation period, 20 weeks; Translations: [20 weeks gestation of ] 11-30-2024 Episodic Unclassified (1 source) Pain in left wrist; Translations: [Pain in left wrist] Onset: 11-29-2023 Unclassified (1 source) Dietary counseling and surveillance; Translations: [Dietary counseling and surveillance] Onset: 05-13-2023 Unclassified (4 sources) OB Reminders Onset: 10-07-2024 10-07-2024 Past or Other Problems Problem Classification Problem Date Documented Da te Episodic/Chronic Unclassified (1 source) Insulin resistance E88.819 Results Test Name Value Interpretation Reference Range Facility US OB 14+ WEEKS ANATOMY SCAN on 11-30-2024 US OB 14+ WEEKS ANATOMY SCAN TITLE OF EXAM: OB Ultrasound: REASON FOR EXAM: Anatomy. COMPARISON: None. TECHNIQUE: Grayscale and M-mode Doppler imaging is performed. FINDINGS: heart rate: 146 bpm BPD: 5.2 cm HC: 18.7 cm AC: 15.2 cm FL: 3.3 cm GA for sonogram: 20.5 wk (19.1-21.9) Cervix length: 3.5 cm ROYA: 04/18/2025 Weight Estimate: Weight: 354 gm / 0 lbs, 12 oz (302-405 gm) [place]lock Normal: 341 gm (281-398 gm) [place]lock Wt%: 62% for 20.1 wks Presentation: Cephalic Amniotic Fluid: Subjectively normal. Placental Location: Posterior, low lying Distance from Placenta edge to Cervical os: 2.3 cm Cervical Length: 3.5 Small amount of fluid in canal. Heart Rate: 146 bpm Anatomy Observed: Lateral Ventricles: Not visualized Cerebellum: Not visualized Posterior Fossa: Not visualized Nose Lips: Not visualized Orbits: Not visualized 4 Chamber heart: Sub visualized Diaphragm: Not visualized Stomach: Visualized Kidneys: Visualized Abd Cord Insert: Sub visualized Bladder: Sub visualized Umbilical Arteries: Visualized 3 Vessel Cord: Not visualized Spine: Visualized Extremities: Visualized Suboptimal exam due to maternal size. Could not penetrate per technologist. IMPRESSION: 1. Normal growth. 2. Limited study. Multiple anatomic structures were not adequately visualized. Recommend follow-up ultrasound in 2 to 4 weeks to evaluate the anatomic structures. Dictated and transcribed 11/30/24/dpd This report has been electronically signed and approved by the interpreting radiologist. Normal Not Available Comment on above: Order Comment: US OB ANATOMY SINGLE W US OB CERVICAL LENGTH Estimated Date of Delivery: 04/18/25 Gestational Age as of 10/26/2024: 20w1d Urinalysis macro (dipstick) panel (U)on 11-30-2024 Bilirubin, UA Negative Negative - 4(70) +++ mg/dL [facility] Blood, UA Negative Negative - 50 Sekou/mcL [facility] Healthcare Clarity, UA Clear [facility] Color, UA Yellow [facility] Glucose, UA Negative Negative - 2000(110) ++++ mg/dL [facility] Interpretation and review of laboratory results Abnormal [facility] Ketones, UA Positive Negative - 160(16) ++++ mg/dL [facility] Comment on above: 15 Leukocytes, UA Trace Negative - 500+++ Laine/mcL [facility] Nitrite, UA Negative Negative - Positive [facility] pH, UA 6 5 - 9 [facility] Protein, UA Negative Negative - 1999(20) ++++ mg/dL [facility] Spec Grav, UA 1.005 1 - 1.03 [facility] Urobilinogen, UA 0.2 0.2 - 12 mg/dL [facility] Workbooks e GLUCOSE 1 HOURon 11-02-2024 Glucose [Mass/Vol] 187 mg/dL High NINF - 13 0 mg/dL [facility] Interpretation and review of laboratory results Abnormal [facility] Workbooks e Urinalysis macro (dipstick) panel (U)Ordered By: Lexi Momin on 10-26-2024 Bilirubin, UA Negative Negative - 4(70) +++ mg/dL [facility] [employer] Work Phone: Blood, UA Negative Negative - 50 Sekou/mcL [facility] [employer] Work Phone: Clarity, UA Clear [facility] [employer] re Work Phone: Color, UA Yellow [facility] Work[employer] Work Phone: Glucose, UA Positive Negative - 1999(110) ++++ mg/dL [facility] [employer] Work Phone: Comment on above: 500 Interpretation and review of laboratory results Abnormal [facility] [employer] Work Phone: Ketones, UA Positive Negative - 160(16) ++++ mg/dL [facility] [employer] Work Phone: Comment on above: 15 Leukocytes, UA Negative Negative - 500+++ Laine/mcL [facility] Healthcare Work Phone: Nitrite, UA Negative Negative - Positive [facility] [employer] Work Phone: pH, UA 5.5 5 - 9 [facility] Work[employer] Work Phone: Protein, UA Positive Negative - 1999(20) ++++ mg/dL [facility] [employer] Work Phone: Comment on above: 30 Spec Grav, UA 1.03 1 - 1.03 [facility] [employer] [facility] Work Phone: Urobilinogen, UA 0.2 0.2 - 12 mg/dL [facility] [employer] Work Phone: [facility] Workbooks e Work Phone: Drug Screen, Urineon 024 Amphetamine/Methamph etamine Negative [facility] Barbiturates Negative [facility] Benzodiazepines Negative [facility] Cocaine Metabolite Negative [facility] Ecstasy Negative [facility] Methadone Negative [facility] Opiates Negative [facility] Oxycodone Negative [facility] Phencyclidine Negative [facility] Thc Marijuana, Urine Negative [facility] HIV 1&2 AB/AG Screen (P24 AG )on 10-08-2024 HIV 1&2 AB/AG Non-Reactive [facility] Hemoglobin A1con 10-08-2024 HbA1c (Bld) [Mass fraction] 5.6 % 4.0 - 6.0 % [facility] Hepatitis C(HCV) Ab w/ Refle x to PCRon 10-08-2024 HCV Ab Ql (S) Negative [facility] No Panel Informationon 10-08 [facility] Type and screenon 10-08-2024 Abo/Rh(D) Positive [facility] HCG ( test) Ql (U)o n 09-25-2024 Interpretation and review of laboratory results Abnormal [facility] Preg Test, Ur Positive Negative [facility] Urinalysis macro (dipstick) panel (U)on 09-25-2024 Bilirubin, UA Negative Negative - 4(70) +++ mg/dL [facility] Blood, UA Negative Negative - 50 Sekou/mcL [facility] Clarity, UA Clear [facility] re Color, UA Yellow [facility] e Glucose, UA Negative Negative - 1999(110) ++++ mg/dL [facility] Interpretation and review of laboratory results Normal [facility] Ketones, UA Negative Negative - 160(16) ++++ mg/dL [facility] Leukocytes, UA Negative Negative - 500+++ Laine/mcL [facility] Nitrite, UA Negative Negative - Positive [facility] pH, UA 5.5 5 - 9 [facility] e Protein, UA Negative Negative - 1999(20) ++++ mg/dL [facility] Spec Grav, UA 1.02 1 - 1.03 [facility] Urobilinogen, UA 1.0 0.2 - 12 mg/dL [facility] US PELVIC COMPLETE W/ TVon [...] 3V*on 2023 XR wrist LT min 3V* [facility] State Other XR wrist LT min 3V* [facility] [employer] Other XR wrist LT min 3V* [address] [place] [address] [employer] Other XR wrist LT min 3V* [place] [address] [place] Other XR wrist LT min 3V* XRay Report [facility] Other XR wrist LT min 3V* Signed [employer] Other XR wrist LT min 3V* Patient: Sandra Colon MR#: [id number] [place] [employer] Other XR wrist LT min 3V* [id number] [employer] Other XR wrist LT min 3V* : 1990 Acct:[id number] [employer] Other XR wrist LT min 3V* Age/Sex: 33 / F ADM Date: 11/29/23 [employer] Other XR wrist LT min 3V* Loc: XDUCLY Room: Type: REG CLI [employer] Other XR wrist LT min 3V* Attending Dr: Araceli ALEX [employer] Other XR wrist LT min 3V* Copies to: ISAI Fisher [employer] Other XR wrist LT min 3V* Ordering Provider: ISAI Fisher [employer] Other XR wrist LT min 3V* Date of Service: 11/29/23 [employer] Other XR wrist LT min 3V* XR/XR wrist LT min 3V*: LEFT WRIST INJURY [employer] Other XR wrist LT min 3V* LEFT WRIST - 4 views [employer] Other XR wrist LT min 3V* CLINICAL HISTORY: Patient fell on steps this morning now with pain and swelling left wrist. [employer] Other XR wrist LT min 3V* COMPARISON: None [employer] Other XR wrist LT min 3V* FINDINGS: [employer] Other XR wrist LT min 3V* No focal soft tissue abnormality. A subtle linear lucency is seen involving the distal radius [employer] Other XR wrist LT min 3V* possibly representing a nondisplaced fracture. Distal ulna appears intact. Carpus appears intact. No [employer] Other XR wrist LT min 3V* bony erosions. N [employer] Other XR wrist LT min 3V* XR/XR wrist LT min 3V* [employer] Other XR wrist LT min 3V* IMPRESSION: [employer] Other XR wrist LT min 3V* A SUBTLE LINEAR LUCENCY IS SEEN INVOLVING THE DISTAL RADIUS POSSIBLY REPRESENTING A NONDISPLACED [employer] Other XR wrist LT min 3V* FRACTURE. FOLLOW-UP IS RECOMMENDED. [employer] Other XR wrist LT min 3V* Impression dictated by: Tremaine Larsen Jr., D.OMary11/29/2023 10:19 AM [employer] Other XR wrist LT min 3V* Dictation Location: [facility]12 [employer] Other XR wrist LT min 3V* Transcribed By: PWS 11/29/23 1019 [employer] Other XR wrist LT min 3V* Dictated By: Tremaine Larsen Jr, DO 11/29/23 1017 [employer] Other XR wrist LT min 3V* Signed By: [employer] Other XR wrist LT min 3V* 11/29/23 1019 No rt State Other XR wrist LT min 3V* [facility] Main [place] [address] [place] [address] XRay Report Signed Patient: Sandra Colon MR#: [id number] : 1990 Acct:[id number] Age/Sex: 33 / F ADM Date: 11/29/23 Loc: XDUCLY Room: Type: [facility] Attending Dr: Araceli ALEX Copies to: [...] RECOMMENDED. Impression dictated by: Tremaine Larsen Jr., D.O.11/29/2023 10:19 AM Dictation Location: [place] [address] Transcribed By: [facility] 11/29/23 1019 Dictated By: Tremaine Larsen Jr, DO 11/29/23 1017 Signed By: 11/29/23 1019 Normal [facility] LIPID PROFILEon 03-02-2023 CHOL-HDL RATIO NORM SEE BELOW Normal [facility] Comment on above: Result Comment: 3.3 - 4.4 LOW RISK 4.4 - 7.1 AVERAGE RISK 7.1 - 11.0 MODERATE RISK >11.0 HIGH RISK Performed By: #### L IPID, CMP, [id number] #### [facility] [address] [address] [address] Aruna Lopez Cholesterol [Mass/Vol] 264 mg/dL Critically high <=200 [facility] Comment on above: Performed By: #### L IPID, CMP, TSHRFT4 #### [facility] [address] [address] [address] Aruna Lopez Cholesterol in HDL [Mass/Vol] 46 mg/dL Normal 40-60 [facility] Comment on above: Performed By: #### L IPID, CMP, TSHRFT4 #### [facility] [address] [address] [address] Aruna Lopez Cholesterol in LDL [Mass/Vol] 193.0 mg/dL Normal [facility] Comment on above: Performed By: #### L IPID, CMP, TSHRFT4 #### [facility] [address] [place], [place] [address] Dr. Aruna Lopez Cholesterol.total/Ch olesterol in HDL [Mass ratio] 5.7 {ratio} Normal [facility] Comment on above: Performed By: #### L IPID, CMP, [id number] #### [facility] [address] [address] [address] Aruna Lopez HDL NORMAL > or = 60 mg/dl - LOW CARDIOVASCULAR RISK <40 mg/dl - HIGH CARDIOVASCULAR RISK Normal [facility] Comment on above: Performed By: #### L IPID, CMP, TSHRFT4 #### [facility] [address] [address] [address] Aruna Lopez LDL CALC NORMAL SEE BELOW Normal [facility] Comment on above: Result Comment: <100 mg/dl OPTIMAL 100 - 129 mg/dl NEAR OR ABOVE OPTIMAL 130 - 159 mg/dl BORDERLINE HIGH 160 - 189 mg/dl HIGH >190 mg/dl VERY HIGH Performed By: #### L IPID, CMP, [id number] #### [facility] [address] [address] [address] Aruna Lopez Triglyceride [Mass/Vol] 125 mg/dL Normal <=150 [facility] Comment on above: Performed By: #### L IPID, CMP, TSHRFT4 #### [facility] [address] [address] [address] Aruna Lopez VLDL CALC 25.0 mg/dL Normal [facility] Comment on above: Performed By: #### L IPID, CMP, TSHRFT4 #### [facility] [address] [address] [address] Aruna Lopez PROF 14(COMP METB)on 023 Albumin [Mass/Vol] 3.2 g/dL Critically low 3.4-5.[address] [facility] Comment on above: Performed By: #### L IPID, CMP, TSHRFT4 #### [facility] [address] [address] [address] Aruna Lopez Albumin/Globulin [Mass ratio] 0.8 {ratio} Normal [facility] Comment on above: Performed By: #### L IPID, CMP, TSHRFT4 #### [facility] [address] [address] [address] Aruna Lopez ALP [Catalytic activity/Vol] 107 U/L Normal 46-116 [facility] Comment on above: Performed By: #### L IPID, CMP, TSHRFT4 #### [facility] [address] [address] [address] Aruna Lopez ALT [Catalytic activity/Vol] 17 U/L Normal 14-59 [facility] Comment on above: Performed By: #### L IPID, CMP, TSHRFT4 #### [facility] [address] [address] [address] Aruna Lopez Anion gap [Moles/Vol] 8.0 mmol/L Normal [facility] Comment on above: Performed By: #### L IPID, CMP, [id number] #### [facility] [address] [address] [address] Aruna Lopez AST [Catalytic activity/Vol] 29 U/L Normal 15-37 [facility] Comment on above: Performed By: #### L IPID, CMP, TSHRFT4 #### [facility] [address] [address] [address] Aruna Lopez Bilirubin [Mass/Vol] 0.5 mg/dL Normal 0.2-1.0 [facility] Comment on above: Performed By: #### L IPID, CMP, TSHRFT4 #### [facility] [address] [address] [address] Aruna Lopez Calcium [Mass/Vol] 8.9 mg/dL Normal 8.5-10.1 [facility] Comment on above: Performed By: #### L IPID, CMP, [id number] #### [facility] [address] [address] [address] Aruna Lopez Chloride [Moles/Vol] 105 mmol/L Normal 98-107 [facility] Comment on above: Performed By: #### L IPID, CMP, TSHRFT4 #### [facility] [address] [address] [address] Aruna Lopez CO2 [Moles/Vol] 29.6 mmol/L Normal 21.0-32.0 [facility] [place] Comment on above: Performed By: #### L IPID, CMP, TSHRFT4 #### [facility] [address] [address] [address] Aruna Lopez Creatinine [Mass/Vol] 0.68 mg/dL Normal 0.55-1.02 [facility] Comment on above: Performed By: #### L IPID, CMP, TSHRFT4 #### [facility] [address] [place] [address] Dr. Aruna Lopez EGFR-AF LUXEMBOURGER >60 Normal >=60 [facility] Comment on above: Performed By: #### L IPID, CMP, TSHRFT4 #### [facility] [address] [place] [address] Dr. Aruna Lopez EGFR-NON AF LUXEMBOURGER >60 Normal >=60 [facility] Comment on above: Performed By: #### L IPID, CMP, TSHRFT4 #### [facility] [address] [place] [address] Dr. Aruna Lopez Globulin (S) [Mass/Vol] 4.1 g/dL Normal [facility] Comment on above: Performed By: #### L IPID, CMP, TSHRFT4 #### [facility] [address] [place] [address] Dr. Aruna Lopez Glucose [Mass/Vol] 98 mg/dL Normal 74-106 [facility] Comment on above: Performed By: #### L IPID, CMP, TSHRFT4 #### [facility] [address] [place] [address] Dr. Aruna Lopez Potassium [Moles/Vol] 4.6 mmol/L Normal 3.5-5.1 [facility] Comment on above: Performed By: #### L IPID, CMP, TSHRFT4 #### [facility] [address] [place] [address] Dr. Aruna Lopez Protein [Mass/Vol] 7.3 g/dL Normal 6.4-8.2 [facility] Comment on above: Performed By: #### L IPID, CMP, TSHRFT4 #### [facility] [address] [place] [address] Dr. Aruna Lopez Sodium [Moles/Vol] 138 mmol/L Normal 136-145 [facility] Comment on above: Performed By: #### L IPID, CMP, [id number] #### [facility] [address] [place] [address] Dr. Aruna Lopez Urea nitrogen [Mass/Vol] 9.0 mg/dL Normal 7.0-18.0 [facility] Comment on above: Performed By: #### L IPID, CMP, [id number] #### [facility] [address] [place] [address] Dr. Aruna Lopez Urea nitrogen/Creatinine [Mass ratio] 13.2 mg/mg Normal [facility] Comment on above: Performed By: #### L IPID, CMP, [id number] #### [facility] [address] [place] [address] Dr. Aruna Lopez TSH W/ REFLEX TO FT4on 03-02 TSH 1.177 uIU/mL Normal 0.358-3.740 [facility] Comment on above: Performed By: #### L IPID, CMP, [id number] #### [facility] [address] [place] [address] Dr. Aruna Lopez VITAMIN B12on 03-02-2023 Cobalamin (Vitamin B12) [Mass/Vol] 261.0 pg/mL Normal 193.0-986.0 [facility] Comment on above: Performed By: #### V ITAD, VITB12 #### [facility] [address] [place] [address] Dr. Aruna Lopez VITAMIN D 25 OHon 03-02-2023 VIT D 25-OH 15.6 ng/mL Normal [facility] Comment on above: Performed By: #### V ITAD, VITB12 #### [facility] [address] [place] [address] Dr. Aruna Lopez VIT D RANGES SEE BELOW Normal [facility] Comment on above: Result Comment: <20 ng/mL Vit D deficient 20 - <30 ng/mL Vit D insufficient 30 - 100 ng/mL Vit D sufficient >100 ng/mL Potential Toxicity Performed By: #### V ITAD, VITB12 #### [facility] [address] [place] [address] Dr. Aruna Lopez COVID Quick Testingon [address] [facility] [employer] Other Quick Strepon 09-11-2022 S. pyogenes Org specific cx Ql (Throat) Negative [employer] [employer] Other Quick Strep [facility] [employer] Other Vital Signs Date Time Vital Sign Value Performing Clinician Facility 10-26-2024 09:59-0500 Body mass index (BMI) [Ratio] 47.08 kg/m2 Any[employer]af[employer] DO Work Phone: [facility] 10-26-2024 09:59-0500 Body weight 120.57 kg [email or web address] DO Work Phone: [facility] 10-26-2024 09:59-0500 Diastolic blood pressure 80 mm[Hg] [email or web address] DO Work Phone: [facility] 10-26-2024 09:59-0500 Systolic blood pressure 120 mm[Hg] [email or web address] DO Work Phone: [facility] 09-25-2024 10:29-0500 Body mass index (BMI) [Ratio] 47.65 kg/m2 [facility] Nurse [facility] 09-25-2024 10:29-0500 Body weight 122.02 kg [facility] Nurse [facility] 09-25-2024 10:29-0500 Diastolic blood pressure 72 mm[Hg] [facility] Nurse [facility] 09-25-2024 10:29-0500 Systolic blood pressure 120 mm[Hg] [facility] Nurse [facility] 09-14-2024 10:46-0500 Body height 160.02 cm [facility] 09-14-2024 10:46-0500 Body mass index (BMI) [Ratio] 47.8 kg/m2 [facility] 09-14-2024 10:46-0500 Body temperature 95.6 [degF] [facility] 09-14-2024 10:46-0500 Body weight 122.55 kg [facility] 09-14-2024 10:46-0500 Diastolic blood pressure 84 mm[Hg] [facility] 09-14-2024 10:46-0500 Heart rate 102 /min [facility] 09-14-2024 10:46-0500 SaO2% (BldA) [Mass fraction] 96 % [facility] 09-14-2024 10:46-0500 Systolic blood pressure 128 mm[Hg] [facility] 12-05-2023 13:00-0500 Body height 160.02 cm Mirta Matta Other [employer] Other 12-05-2023 13:00-0500 Body mass index (BMI) [Ratio] 48.18 kg/m2 Mirta Matta Other [employer] Other 12-05-2023 13:00-0500 Body weight 123.38 kg Mirta Matta Other [employer] Other 12-05-2023 13:00-0500 Diastolic blood pressure 78 mm[Hg] Mirta Matta Other [employer] Other 12-05-2023 13:00-0500 SaO2% (BldA) [Mass fraction] 98 % Mirta Matta Other [employer] Other 12-05-2023 13:00-0500 Systolic blood pressure 122 mm[Hg] Mirta Matta Other [employer] Other 11-29-2023 09:10-0500 Body height 160.02 cm Araceli Hinojosa Other [employer] Other 11-29-2023 09:10-0500 Body mass index (BMI) [Ratio] 21.93 kg/m2 Araceli Hinojosa Other [employer] Other 11-29-2023 09:10-0500 Body temperature 98.7 [degF] Araceli Hinojosa Other [employer] Other 11-29-2023 09:10-0500 Body weight 56.16 kg Araceli Hinojosa Other [employer] Other 11-29-2023 09:10-0500 Diastolic blood pressure 88 mm[Hg] Araceli Hinojosa Other [employer] Other 11-29-2023 09:10-0500 Respiratory rate 18 /min Araceli Hinojosa Other [employer] Other 11-29-2023 09:10-0500 SaO2% (BldA) [Mass fraction] 97 % Araceli Hinojosa Other [employer] Other 11-29-2023 09:10-0500 Systolic blood pressure 133 mm[Hg] Araceli Hinojosa Other [employer] Other 11-25-2023 13:00-0500 Body height 157.48 cm Mirta Matta Other [employer] Other 11-25-2023 13:00-0500 Body mass index (BMI) [Ratio] 50.29 kg/m2 Mirta Matta Other [employer] Other 11-25-2023 13:00-0500 Body weight 124.74 kg Mirta Matta Other [employer] Other 11-25-2023 13:00-0500 Diastolic blood pressure 76 mm[Hg] Mirta Matta Other [employer] Other 11-25-2023 13:00-0500 SaO2% (BldA) [Mass fraction] 98 % Mirta Matta Other [employer] Other 11-25-2023 13:00-0500 Systolic blood pressure 118 mm[Hg] Mirta Matta Other [employer] Other 05-13-2023 09:15-0400 Body height 157.48 cm Janette Scally Other [employer] Other 05-13-2023 09:15-0400 Body mass index (BMI) [Ratio] 49.34 kg/m2 Janette Scally Other [employer] Other 05-13-2023 09:15-0400 Body weight 122.38 kg Janette Scally Other [employer] Other 05-13-2023 09:15-0400 Diastolic blood pressure 85 mm[Hg] Janette Scally Other [employer] Other 05-13-2023 09:15-0400 Respiratory rate 18 /min Janette Scally Other [employer] Other 05-13-2023 09:15-0400 SaO2% (BldA) [Mass fraction] 97 % Janette Scally Other [employer] Other 05-13-2023 09:15-0400 Systolic blood pressure 116 mm[Hg] Janette Scally Other [employer] Other 04-05-2023 11:15-0400 Body height 157.48 cm Janette Scally Other [employer] Other 04-05-2023 11:15-0400 Body mass index (BMI) [Ratio] 50.44 kg/m2 Janette Scally Other [employer] Other 04-05-2023 11:15-0400 Body weight 125.1 kg Janette Scally Other [employer] Other 04-05-2023 11:15-0400 Diastolic blood pressure 91 mm[Hg] Janette Scally Other [employer] Other 04-05-2023 11:15-0400 Respiratory rate 16 /min Janette Scally Other [employer] Other 04-05-2023 11:15-0400 SaO2% (BldA) [Mass fraction] 100 % Janette Scally Other [employer] Other 04-05-2023 11:15-0400 Systolic blood pressure 137 mm[Hg] Janette Scally Other [employer] Other 02-01-2023 11:15-0400 Body height 157.48 cm Janette Scally Other [employer] Other 02-01-2023 11:15-0400 Body mass index (BMI) [Ratio] 49.29 kg/m2 Janette Scally Other [employer] Other 02-01-2023 11:15-0400 Body weight 122.25 kg Janette Scally Other [employer] Other 02-01-2023 11:15-0400 Diastolic blood pressure 83 mm[Hg] Janette Scally Other [employer] Other 02-01-2023 11:15-0400 Respiratory rate 18 /min Janette Scally Other [employer] Other 02-01-2023 11:15-0400 SaO2% (BldA) [Mass fraction] 98 % Janette Scally Other [employer] Other 02-01-2023 11:15-0400 Systolic blood pressure 124 mm[Hg] Janette Scally Other [employer] Other 09-11-2022 10:15-0500 Body height 157.48 cm Terri Medina Other [employer] Other 09-11-2022 10:15-0500 Body mass index (BMI) [Ratio] 47.55 kg/m2 Terri Medina Other [employer] Other 09-11-2022 10:15-0500 Body temperature 98 [degF] Terri Medina Other [employer] Other 09-11-2022 10:15-0500 Body weight 117.94 kg Terri Medina Other [employer] Other 09-11-2022 10:15-0500 Diastolic blood pressure 91 mm[Hg] Terri Medina Other [employer] Other 09-11-2022 10:15-0500 Respiratory rate 16 /min Terri Medina Other [employer] Other 09-11-2022 10:15-0500 SaO2% (BldA) [Mass fraction] 98 % Terri Medina Other [employer] Other 09-11-2022 10:15-0500 Systolic blood pressure 142 mm[Hg] Terri Medina Other [employer] Other Encounters Encounter Date Encounter Type Care Provider Facility Start: 12-28-2024 End: 12-28-2024 Bamboo flowsheet Yeison Kee DO Work Phone: [facility] Start: 12-28-2024 End: 12-28-2024 Bamboo flowsheet Yeison Kee DO Work Phone: [facility] Start: 12-10-2024 End: 12-10-2024 Chart abstracting Sakshi Morillo MD Work Phone: [facility] Start: 11-30-2024 End: 11-30-2024 flow sheet Sanaz HERNANDEZ Work Phone: [facility] Comment on above: Second trimester pre gnancy; 20 weeks gestation of ; Insulin controlled gestational diabetes mellitus (GDM) during , antepartum; Gestational diabetes mellitus (GDM), antepartum, gestational diabetes method of control unspecified Start: 11-30-2024 End: 11-30-2024 ambulatory SANAZ DAVILA Not Available Start: 11-30-2024 End: 11-30-2024 ambulatory SANAZ DAVILA Not Available Start: 11-02-2024 End: 11-02-2024 Clinisync Result Encounter Yeison Kee DO Work Phone: [facility] Department Unsolicited Start: 11-02-2024 End: 11-02-2024 Clinisync Result Encounter Yeison Kee DO Work Phone: [facility] Unsolicited Start: 10-26-2024 End: 10-26-2024 Bamboo flowsheet Yeison [...] outpatient visit 5 minutes [facility] Kee Nurse [facility] Comment on above: GA: 10w5d Start: 09-25-2024 End: 09-25-2024 ambulatory SANAZ DAVILA Not Available Start: 09-14-2024 End: 09-14-2024 ambulatory [facility] Work Phone: Start: 09-14-2024 End: 09-14-2024 Patient encounter procedure [facility] Physician [facility] Work Phone: Start: 04-22-2024 End: 04-22-2024 ambulatory [...] 12-05-2023 End: 12-05-2023 ambulatory Mirta Matta Other [employer] Other Start: 12-05-2023 Office outpatient vi sit 15 minutes Mirta Matta [facility] Start: 12-02-2023 Telephone encounter Mirta mcdonald [facility] Start: 12-02-2023 End: 12-02-2023 ambulatory SAMARA BROWER [employer] Other Start: 11-29-2023 Office outpatient vi sit 15 minutes Araceli Hinojosa [facility] Start: 11-29-2023 End: 11-29-2023 ambulatory Araceli Hinojosa Facility:[facility] Start: 11-29-2023 End: 11-29-2023 ambulatory [employer] Leticia Puentes Work Phone: [facility] Work Phone: Start: 11-29-2023 End: 11-29-2023 Patient encounter procedure 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 Puentes Work Phone: [facility] Work Phone: Start: 11-25-2023 End: 11-25-2023 ambulatory Mirta Matta Other [employer] Other Start: 11-25-2023 Encounter for genera l adult medical examination without abnormal findings Mirta Matta [facility] Start: 11-25-2023 Initial preventive medicine new pt age 18-39yrs Mirta Matta [facility] Start: 08-29-2023 End: 08-30-2023 ambulatory Leticia Puentes [employer] Facility:[facility] Start: 06-24-2023 End: 06-24-2023 ambulatory Janette Dinero Other [employer] Other Start: 06-24-2023 Telephone encounter Janette lea [facility] Start: 05-31-2023 End: 05-31-2023 ambulatory Janette Dinero Other [employer] Other Start: 05-31-2023 Telephone encounter Janette lea [facility] Start: [facility]-13-2023 [facility] Weight Management f/u Janetteelena Dinero [facility] Start: 05-13-2023 End: 05-14-2023 ambulatory Leticia Puentes [employer] Other Start: 04-23-2023 End: 04-23-2023 ambulatory Janette Dinero Other [employer] Other Start: 04-23-2023 Telephone encounter Janette lea [facility] Start: [facility]-05-2023 [facility] Weight Management f/u Janette Gretchen [facility] Start: 04-05-2023 End: 04-05-2023 ambulatory Janette Dinero Other [employer] Other Start: 03-04-2023 End: 03-04-2023 ambulatory Janette Dinero Other [employer] Other Start: 03-04-2023 Telephone encounter Janette Norton [facility] Start: 03-02-2023 End: 03-03-2023 ambulatory JANETTE DINERO Facility: Start: 02-01-2023 End: 02-01-2023 ambulatory Janette Dinero Other [employer] Other Start: 02-01-2023 Nutrition therapy Janette Dinero [facility] Start: 09-11-2022 End: 09-11-2022 ambulatory Terri Medina Other [employer] Other Start: 09-11-2022 Office outpatient vi sit 15 minutes Terri Medina [facility] Procedures Date Procedure Procedure Detail Performing Clinician Start: 11-30-2024 Urnls dip stick/tabl et rgnt non-auto w/o micrscp Sanaz HERNANDEZ Work Phone: Start: 11-02-2024 GLUCOSE 1 HOUR Yeison Fa zio DO Work Phone: Start: 10-26-2024 Urnls dip stick/tabl et rgnt non-auto w/o micrscp Yeison Kee DO Work Phone: Start: 10-08-2024 Drug scrn 1+ class nonchromo Not In System Ref Prov Start: 10-08-2024 Hemoglobin glycosyla aldo a1c Scanning Provider External Start: 10-08-2024 Hepatitis c antibody No t In System Ref Prov Start: 10-08-2024 HIV 1&2 AB/AG SCREEN (P24 AG) Not In System Ref Prov Start: 10-08-2024 TYPE AND SCREEN Not In System Ref Prov Start: 09-25-2024 End: 09-25-2024 Urnls dip stick/tablet rgnt non-auto w/o micrscp Yeison Kee DO Work Phone: Start: 11-29-2023 Plain X-ray of left wrist [employer]IN[employer] Leticia Puentes Work Phone: Start: 09-02-2023 Microscopic observat ion [Identifier] in Cervix by Cyto stain [facility] Plan of Treatment Date Care Activity Detail Author Start: 09-02-2028 Screening for malign ant neoplasm of cervix [facility] Start: 12-31-2024 End: 12-31-2024 Patient encounter procedure 12/31/2024 3:30 PM EST Office Visit [facility] [address] [place] [phone] Sakshi Morillo MD [address] [place] [address] [facility] Start: 12-31-2024 End: 12-31-2024 Patient encounter procedure 12/31/2024 2:15 PM EST Appointment [facility] [address] [place] [phone] [facility] Start: 12-28-2024 End: 12-28-2024 Patient encounter procedure [facility] Comment on above: Arrived Start: 11-30-2024 End: 11-30-2024 Patient encounter procedure 11/30/2024 9:30 AM EST Routine [facility] [address] [place] [phone] Sanaz Davila PA [address] [place] [address] [facility] Start: 11-30-2024 End: 11-30-2024 Professional / ancillary services management 11/30/2024 8:30 AM EST Ancillary Procedure [facility] [address] [place] [phone] [facility] Start: 10-26-2024 End: 10-26-2025 Measurement of glucose 1 hour after glucose challenge for glucose tolerance test Glucose tolerance, 1 hour Lab Routine 15 weeks gestation of Second trimester Diabetes mellitus screening Expected: 10/26/2024 (Approximate), Expires: 10/26/2025 [facility] Work Phone: Comment on above: Expected: 10/26/2024 (Approximate), Expires: 10/26/2025 Start: 10-26-2024 End: 10-26-2025 US for US OB ANATOMY SINGLE W US OB CERVICAL LENGTH Imaging Routine 15 weeks gestation of Second trimester Screening, , for anatomic survey Expected: 10/26/2024 (Approximate), Expires: 10/26/2025 [facility] Comment on above: Expected: 10/26/2024 (Approximate), Expires: 10/26/2025 Start: 10-26-2024 End: 10-26-2024 Patient encounter procedure [facility] Comment on above: 15 weeks gestation o f ; Second trimester Start: 09-25-2024 End: 09-25-2025 ABO/Rh ABO/Rh Lab Routine Missed menses , unspecified gestational age Expected: 09/25/2024 (Approximate), Expires: 09/25/2025 [facility] Comment on above: Expected: 09/25/2024 (Approximate), Expires: 09/25/2025 Start: 09-25-2024 End: 09-25-2025 Blood type and Indirect antibody screen panel - Blood Type and screen Lab Routine Missed menses , unspecified gestational age Expected: 09/25/2024 (Approximate), Expires: 09/25/2025 [facility] Work Phone: Comment on above: Expected: 09/25/2024 (Approximate), Expires: 09/25/2025 Start: 09-25-2024 End: 09-25-2025 Drugs of abuse panel - Urine by Screen method Rapid drug screen, urine Lab Routine , unspecified gestational age Encounter for supervision of normal first in first trimester Expected: 09/25/2024 (Approximate), Expires: 09/25/2025 [facility] Comment on above: Expected: 09/25/2024 (Approximate), Expires: 09/25/2025 Start: 09-25-2024 End: 09-25-2025 US Pelvis transvaginal US OB transvaginal Imaging Routine Missed menses Expected: 09/25/2024 (Approximate), Expires: 09/25/2025 [facility] Comment on above: Expected: 09/25/2024 (Approximate), Expires: 09/25/2025 Start: 07-05-2024 COVID-19 Vaccine ( season) COVID-19 Vaccine ( season) [facility] Start: 07-05-2024 Influenza vaccination [facility] Start: 2013 Screening for malign ant neoplasm of cervix Pap Smear [facility] Start: 2011 DTaP,Tdap and Td Vaccines (1 - Tdap) DTaP,Tdap and Td Vaccines (1 - Tdap) [facility] Start: 2010 Adult BMI Screening Adult BMI Screen ing [facility] Start: 2004 Depression Screening Depression Scre ening [facility] Start: 2004 Tobacco Screening Tobacco Screening [facility] Bacteria identified in Urine by Culture Urine culture Microbiology Routine Missed menses Ordered: 09/25/2024 [facility] Comment on above: Ordered: 09/25/2024 CBC W Auto Different ial panel - Blood CBC and differential Lab Routine Missed menses , unspecified gestational age Ordered: 09/25/2024 [facility] Comment on above: Ordered: 09/25/2024 Hemoglobin A1c/Hemoglobin.total in Blood Hemoglobin A1c Lab Routine Missed menses , unspecified gestational age Ordered: 09/25/2024 [facility] Comment on above: Ordered: 09/25/2024 Hepatitis B virus surface Ag [Presence] in Serum or Plasma by Immunoassay Hepatitis B surface antigen Lab Routine Missed menses , unspecified gestational age Ordered: 09/25/2024 [facility] Comment on above: Ordered: 09/25/2024 Hepatitis C virus Ab [Presence] in Serum or Plasma by Immunoassay Hepatitis C antibody Lab Routine Missed menses , unspecified gestational age Ordered: 09/25/2024 [facility] Comment on above: Ordered: 09/25/2024 HIV-1/HIV-2 antigen/antibody combination immunoassay HIV-1 and HIV-2 antibodies Lab Routine Missed menses , unspecified gestational age Ordered: 09/25/2024 [facility] Comment on above: Ordered: 09/25/2024 Reagin Ab [Presence] in Serum by RPR RPR Lab Routine Missed menses , unspecified gestational age Ordered: 09/25/2024 [facility] Comment on above: Ordered: 09/25/2024 Rubella antibody, IgG Rubella an tibody, IgG Lab Routine Missed menses , unspecified gestational age Ordered: 09/25/2024 [facility] Comment on above: Ordered: 09/25/2024 US Lower extremity v ein - [facility] Payers Date Payer Category Payer Self-pay 2022 Private Health Insurance [employer] [id number] 2021 Managed Care Other (unspecified) [employer] [id number] 1992 Unknown [id number] [id number]. 593 1992 Unknown [id number] 2.16.840.1.017736.3.579.2. 718 1992 Unknown [id number] 2.16.840.1.408883.3.579.2. 1258 1992 Unknown [id number] 2.16.840.1.632111.3.579.2. 9 1992 Unknown [id number] 2.16.840.1.929032.3.579.2. 1258 1992 Unknown [id number] 2.16.840.1.020569.3.579.2. 1258 1992 Unknown [id number] 2.16.840.1.899500.3.579.2. 1258 1992 Unknown [id number] 2.16.840.1.956583.3.579.2. 1258 1992 Unknown [id number] 2.16.840.1.284173.3.579.2. 1258 1992 Unknown [id number] 2.16.840.1.689343.3.579.2. 9 1992 Unknown [id number] 2.16.840.1.498772.3.579.2. 1258 1992 Unknown [id number] 2.16.840.1.681740.3.579.2. 1258 1992 Unknown [id number] 2.16.840.1.392786.3.579.2. 1258 1992 Unknown [id number] 2.16.840.1.449383.3.579.2. 1258 1992 Unknown [id number] 2.16.840.1.472550.3.579.2. 9 1959 Unknown [id number] 2.16.840.1.831220.19 Unknown [id number] 2.16.840.1.849129.19 Unknown [id number] 2.16840.1.191635.19 Unknown [id number] 2.16.840.1.336668.3.579.2. 531 Unknown [id number] 2.16.840.1.568588.3.579.2. 531 Social History Date Type Detail Facility Start: 04-13-2019 End: 02-12-2024 Sex Assigned At [facility] [employer] Other Start: 1990 Sex Assigned At Female F [facility] Tobacco smoking stat us HIIS Unknown if ever smoked [facility] Work Phone: Start: 06-07-2015 End: 09-14-2024 Sex Female (finding) [facility] Start: 12-02-2023 End: 12-10-2024 Tobacco smoking status HIIS Never smoked tobacco [facility] Start: 12-02-2023 End: 12-10-2024 Tobacco use and exposure Smokeless tobacco non-user [facility] Start: 09-25-2024 End: 10-26-2024 Alcoholic beverage intake Current drinker of alcohol (finding) [facility] Start: 04-13-2019 End: 02-12-2024 History of Social function [facility] Start: 07-26-2024 [facility]care Start: 1990 Sex assigned at Not on file N [facility] Start: 12-10-2024 Alcoholic beverage intake Ex-drinker (finding) [facility] Childcare Unknown [facility] Medical Equipment Procedure Code Equipment Code Equipment Origin al Text Equipment Identifier Dates [id number], [id number], [id number] Start: 04-05-2023 End: 03-10-2025 1 each by in vit ro route once daily. Use to check FSBS four times daily Goals Date Patient Goal Desired Activity /State Personal health goal Clinical Notes 09-11-2022 to 11-30-2024 Sanaz Davila, DAVID - 11/30/2024 9:30 AM Evi Sweet DO - 10/26/2024 9:50 AM Saba Gooden LPN - 09/25/2024 10:00 AM EST Note Date & Type Note Facility 11-30-2024 History of Presen t illness Narrative Reason for Appointment: Patient ID: Sandra Colon is a 34 y.o. female who presents for Routine Visit Patient presents today for Return OB appointment. MEDICATIONS Current Outpatient Medications Medication Instructions Alcohol Swabs (Alcohol Prep Pad) 70 % pads 1 Pad, Topical, Daily, Use four times daily to check FSBS. Blood Glucose Monitoring Suppl (D-Care Glucometer) w/Device kit 1 kit, Does not apply, Daily, Use four times daily to check FSBS. In the morning prior to breakfast & 1 hour after each meal for a total of 4times daily. Glucose Blood (Blood Glucose Test) strip 1 strip, In Vitro, Daily, Use in the morning prior to breakfast, 1 hour after each meal for a total of 4times daily. Lancets Ultra Thin misc 1 each, In Vitro, Daily, Use to check FSBS four times daily multivitamin () 27-0.8 MG tablet 1 tablet, [...] Date Depression with anxiety Wrist fracture 2014 RT wrist Social History Tobacco Use Smoking status: Never Smokeless tobacco: Never Substance Use Topics Alcohol use: Yes Drug use: Not on file FAMILY HISTORY Family History Problem Relation Name Age of Onset Heart disease Father SURGICAL HISTORY Past Surgical History: Procedure Laterality Date PLANTAR'S WART EXCISION RT foot WISDOM TOOTH EXTRACTION REVIEW OF SYSTEMS Review of Systems: Review of Systems Constitutional: Negative. HENT: Negative. Eyes: Negative. Respiratory: Negative. Cardiovascular: Negative. Gastrointestinal: Negative. Genitourinary: Negative. Musculoskeletal: Negative. Skin: Negative. Neurological: Negative. All other systems reviewed and are negative. Hematological: Negative. Endocrine: Negative. Allergic/Immunologic: Negative. OBJECTIVE Objective: Physical Exam Constitutional: Appearance: Normal appearance. She is normal weight. HENT: Head: Normocephalic. Cardiovascular: Rate and Rhythm: Normal rate. Pulses: Normal pulses. Pulmonary: Effort: Pulmonary effort is normal. Breath sounds: Normal breath sounds. Abdominal: Palpations: Abdomen is soft. Musculoskeletal: General: Normal range of motion. Neurological: General: No focal deficit present. Mental Status: She is alert and oriented to person, place, and time. Psychiatric: Mood and Affect: Mood normal. Behavior: Behavior normal. Thought Content: Thought content normal. Judgment: Judgment normal. Vitals and nursing note reviewed. Vitals: Estimated body mass index is 47.08 kg/m as calculated from the following: Height as of 04/22/24: 5' 3 . Weight as of 10/26/24: 265 lb 12.8 oz. BP: Patient's last menstrual period was 07/12/2024. ASSESSMENT & PLAN ICD-10-CM 1. Second trimester Z34.92 POCT urinalysis dipstick manually resulted 2. 20 weeks gestation of Z3A.20 Return OB: Patient presents today for a routine obstetrics appointment. Patient is currently 20w1d . Patient states she is doing well but has complaints of being tired due to current . Patient has verbalizes frequent movement. labor precautions was discussed/given and patient was instructed to perform kick counts three times a day. Pt started checking blood sugar and pt also brought in her log sheets for the month. Pt also had her anatomy scan done this morning. Pap and Cx's will be done at next OB visit. Patient blood sugars reviewed. Patient will be started on lantus at night and referred to [facility] for level II ultrasound and gestational diabetes Orders Placed This Encounter Procedures POCT urinalysis dipstick manually resulted Follow Up: Patient is to return to office in 2 week for routine OB appointment. Documented by Cinthia Lamas MA on behalf of: DAVID Mahoney documented in this encounter [facility] 10-26-2024 History of Presen t illness Narrative [...] Date Depression with anxiety Wrist fracture 2014 RT wrist Social History Tobacco Use Smoking [...] nursing note reviewed. Exam conducted with a ruby engineer present. Vitals: Estimated body mass index is [...] or undercooked meat, and stay away from [facility]. Patient has been consulted regarding any further do's and don'ts of . Patient voiced understanding and all questions and concerns were answered. Orders Placed This Encounter Procedures POCT urinalysis dipstick manually resulted Follow Up: Patient is to return in 4 weeks for routine OB appointment. Documented by Lexi Momin LPN on behalf of: Yeison Sweet DO documented in this encounter [facility] 09-25-2024 History of Presen t illness Narrative [...] Date Depression with anxiety Wrist fracture 2013 Family History Problem Relation Name Age of [...] or undercooked meat, and stay away from [facility]. Patient has also been advised to not [...] Ericka Gooden LPN documented in this encounter [facility] 12-05-2023 Evaluation note Encounter Date Diagnosis Assessment Notes Dec, Left wrist pain (ICD-10 - M25.532) Dec, Closed fracture of left wrist with routine healing, subsequent encounter (ICD-10 - S62.102D) Following with ortho. Has next appt 12/23Dec, Insulin resistance (ICD-10 - E88.819) Would like to a referral to APPLIED RESEARCH DIRECTOR as she is trying to start a family and has irregular cycles with insulin resistance. Dec, Irregular menstruation (ICD-10 - N92.6) [facility] Other 01-26-2024 Evaluation note* Encounter Date Diagnosis [...] physician as soon as possible for reevaluation. [facility] Other 01-22-2024 Evaluation note* Encounter Date Diagnosis [...] of this and agrees to this plan. [facility] Other 07-10-2023 Evaluation note* Encounter Date Diagnosis [...] and make recommendations for long-term supplementation with jeom-qid-irnbtje formulations or prescription grade repletion. May, Family [...] Discussed implications of family history of early NC in her father <55 years old. May [...] visit was counseling done by myself, Cathryn CORTZE. [facility] Other 06-02-2023 Evaluation note* Encounter Date Diagnosis [...] and make recommendations for long-term supplementation with ghkt-zth-etwnuic formulations or prescription grade repletion. Apr, Family [...] Discussed implications of family history of early NC in her father <55 years old. May [...] was counseling done by myself, Cathryn CORTEZ. [facility] Other 03-31-2023 Evaluation note* Encounter Date Diagnosis [...] and make recommendations for long-term supplementation with fpgm-wpv-bnzexzu formulations or prescription grade repletion. Jan, Family [...] was counseling done by myself, Cathryn CORTEZ. [facility] Other 11-08-2022 Evaluation note* Encounter Date Diagnosis [...] understanding and is agreeable to treatment plan [facility] Other Evaluation noteNo [place] Other Evaluation noteNo assessment information available [facility] Work Phone: Evaluxrjcp note* Diagnosis Onset Date Resolution Status Admit Date 9 weeks gestation of acute September 14, 024 10:35am Right calf pain acute September 14, 2024 10:35am Right leg swelling acute Novemb er 2023 10:35am [facility] Work Phone: Evxbaingsl note* Diagnosis Missed menses , unspecified gestational age Encounter for supervision of normal first in first trimester documented in this encounter [facility] HealthcareEvaluation note* Diagnosis 15 weeks gestation of Second trimester state, incidental Diabetes mellitus screening Screening for diabetes mellitus Screening, , for anatomic survey Encounter for anatomic survey documented in this encounter [facility] HealthcareEvaluation note* Diagnosis Second trimester state, incidental 20 weeks gestation of Insulin controlled gestational diabetes mellitus (GDM) during , antepartum Gestational diabetes mellitus (GDM), antepartum, gestational diabetes method of control unspecified documented in this encounter [facility] HealthcareHistory general Narrative - Reported* Type Description Date Surgical History Seeley teeth extraction Surgical History Planter wart removed right foot 2010 Hospitalization History See Above [facility] Other History general Narrative - Reported* Type Description Date Medical History Depression Medical History Anxiety Surgical History Seeley teeth extraction Surgical History Planter wart removed right foot 2010 Hospitalization History See Above [facility] Other InstructionsNot on filedocumented in this encounter [facility] Summary Purpose Family History Relationship Condition Age at Onset Recorded Date/T mark father Heart disease Unknown Advance Directives Advance Directive Response Recorded Date/ Time Advance Directives No December 10:33am Reason for Referral Reason evaluate Diagnosis 1 Insulin resistance ( E88.819) Referral Organization [facility] desiree Referring Provider First Name Mirta Referring Provider Last Name Paxton Referring Provider Specialty Nurse Pract itioner Referred Organization [facility] Referred Provider Yeison Sweet Referred Address ,[place], [place],[address] Referred Provider Specialty OB - Gynecol ogy [...] DATE CREATED AUTHOR AUTHOR'S ORGANIZ ATION 09/24/2023 [facility] DATE CREATED AUTHOR AUTHOR'S ORGANIZ ATION 12/06/2023 [facility] DATE CREATED AUTHOR AUTHOR'S ORGANIZ ATION 12/01/2024 [facility] Specialists EPIC Goals (unrecognized section and content) Goals may be documented in a n alternate section Care Teams (unrecognized sec tion and content) Team Status: Active Member Role Status Dates Leticia Puentes APRN FARM MACHINERY MECHANIC-C Primary Care Provider Active Team Status: Inactive Member Role Status Dates Leticia Puentes APRN FARM MACHINERY MECHANIC-C Primary Care Provider Active Start: November 29, 2023 End: November 29, 2023 ISAI Palmer Attending Provider Active S tart: November 29, 2023 End: November 29, 2023 Team Status: Active Member Role Status Dates Mirta Matta APRN NP-Dahlia Primary Care Provider Active Team Status: Inactive Member Role Status Dates Leticia Puentes APRN FARM MACHINERY MECHANIC-C Primary Care Provider Active Start: September 14, 2024 End: September 14, 2024 Mirta Matta APRN FARM MACHINERY MECHANIC-C Attending Provider Active Start: September End: September 14, 2024 Parts Designer Relationship Specialty Start Date End Date Mirta Matta NP [address] [place] [id number] PCP - General Family Medicine 09/25/24 Parts Designer Relationship Specialty Start Date End Date Mirta Matta NP [address] [place] [address] PCP - General Family Medicine 09/25/24 Parts Designer Relationship Specialty Start Date End Date Mirta Matta NP [address] [place] [address] 24893 PCP - General Family Medicine 09/25/24 Parts Designer Relationship Specialty Start Date End Date Mirta Matta NP [address] [place] [address] 14724 PCP - General Family Medicine 09/25/24 Parts Designer Relationship Specialty Start Date End Date Leticia Puentes APRN-STONE CRUSHER OPERATOR PCP - General Family Medicine 10/10/21 Parts Designer Relationship Specialty Start Date End Date Mirta Matta NP [address] [place] [id number] PCP - General Family Medicine 09/25/24 FOR [...] BE BASED ON THE PRIMARY CLINICAL RECORDS. [facility] [employer] [facility]. provides no warranty or guarantee of the accuracy or completeness of information in this document.
[2024-12-31 11:09] LABS: Age Gdln ACOG Testing Note (.); HPV Aptima Negative (Negative); IGP, Aptima HPV, rfx 16/18,45 Note (.)
== END 2024-12-28 21:37 | disposition home or self-care (01) ==
LOC: LAB 21:36
PROVIDERS: PCP Nurse Practitioner Family; Visit Provider Obstetrics & Gynecology
DX: Z01.419 Encounter for gynecological examination (general) (routine) without abnormal findings (principal)
CPT/HCPCS: 87624; 88175

== ENCOUNTER 2025-02-01 15:40 | Outpatient (OUT) | payer OTHER, SELFPAY ==
[2025-02-01 16:01] VITALS: BP 140/82; PULSE 91
--- NOTE | 2025-02-01 16:11 | US_ITS ---
[address] [address] Patient Name: SARAHY SPENCE MRN: [facility]:[id number] date: 1990 Sex: F Assigned Patient Location: [facility] Current Patient Location: [place] Accession/Order Number: [id number] Exam Date: 02/01/2025 18:23 Report Date: 02/04/2025 10:48 At the request of: YEISON RAINEY DO Procedure: US OB BPP w non-stress Correction; revised Ultrasound started biophysical profile HISTORY: Gestational diabetes breathing movement suboptimal. Adequate gross body movement, tone and amniotic fluid volume for a total score of 6 out of 8. Amniotic fluid index is 15.1 cm. heart rate 135 bpm. US/US OB BPP w non-stress IMPRESSION: Suboptimal breathing movement. Total biophysical profile score 6 out of 8. Impression dictated by: Shemar Briggs M.D.02/04/2025 10:48 AM Dictation Location: [facility] Electronically authenticated by: [id number] Y Date: 02/04/2025 10:48
== END 2025-02-01 17:20 | disposition home or self-care (01) ==
LOC: US 15:41 → FBC 15:55
PROVIDERS: PCP Nurse Practitioner Family; Visit Provider Obstetrics & Gynecology
DX: O24.419 Gestational diabetes mellitus in pregnancy, unspecified control (principal)
CPT/HCPCS: 76818; 86850; 86900; 86901

== ENCOUNTER 2025-02-05 18:55 | Observation (INO) | payer OTHER, SELFPAY ==
[2025-02-05 19:28] VITALS: BP 128/84; PULSE 89
[2025-02-05 20:01] LABS: Bilirubin Urine NEGATIVE (NEGATIVE); Blood Urine NEGATIVE (NEGATIVE); Clarity Urine CLEAR (CLEAR); Color Urine LT. YELLOW (YELLOW); Glucose Urine UA >=1000 mg/dL (NEGATIVE); Ketones Urine 15 mg/dL (NEGATIVE); Leukocyte Esterase Urine NEGATIVE (NEGATIVE); Nitrite Urine NEGATIVE (NEGATIVE); Protein Urine NEGATIVE (NEG/TRACE); Specific Gravity Urine 1.015 (1.005-1.025); Urobilinogen Urine 0.2 EU/dL (0.2-1.0)
[2025-02-05 20:02] LABS: Urine Microscopic Indicated NO
[2025-02-05 20:53] LABS: Basophils Percent Auto 0.1 % (0.2-2.0); Eosinophils Absolute Auto 0.1 10^3/uL (0.0-0.7); Eosinophils Percent Auto 0.7 % (0.9-7.0); Hematocrit 37.7 % (36.0-48.0); Hemoglobin 12.7 g/dL (12.0-16.0); Immature Granulocytes Abs Auto 0.05 10^3/uL (0.00-0.03); Immature Granulocytes Pct Auto 0.5 % (0.0-0.5); Lymphocytes Absolute Auto 1.9 10^3/uL (1.2-3.8); Mean Corpuscular HGB Conc 33.7 g/dL (29.9-35.2); Mean Corpuscular Hemoglobin 29.3 pg (26.7-34.0); Mean Corpuscular Volume 87.1 fL (81.0-99.0); Mean Platelet Volume 12.4 fL (9.5-13.5); Monocytes Absolute Auto 0.6 10^3/uL (0.3-0.8); Neutrophils Absolute Auto 6.6 10^3/uL (1.4-6.5); Neutrophils Percent Auto 71.7 % (43.0-75.0); Platelet Count 244 10^3/uL (150-450); Red Blood Count 4.33 10^6/uL (4.20-5.40); Red Cell Distribution Width 13.2 % (11.0-15.0); White Blood Count 9.2 10^3/uL (4.0-11.0)
[2025-02-05 21:04] LABS: Alanine Aminotransferase <6 U/L (14-59); Albumin Globulin Ratio 0.5; Albumin Level 2.2 g/dL (3.4-5.0); Alkaline Phosphatase 138 U/L (46-116); Amylase 50 U/L (25-115); Aspartate Amino Transferase 13 U/L (15-37); BUN Creatinine Ratio 6.5; Bilirubin Total 0.2 mg/dL (0.2-1.0); Calcium 9.2 mg/dL (8.5-10.1); Carbon Dioxide 23.7 mmol/L (21.0-32.0); Chloride 102 mmol/L (98-107); Estimated GFR (African America >60 (>=60 mL/min/1.73m^2); Estimated GFR (Non-African Ame >60 (>=60 mL/min/1.73m^2); Globulin 4.2 g/dL; Glucose 243 mg/dL (74-106); Potassium 3.7 mmol/L (3.5-5.1); Sodium 137 mmol/L (136-145); Total Protein 6.4 g/dL (6.4-8.2)
[2025-02-05] MEDS: ACETAMINOPHEN 500 MG TABLET 1000 MG PO (21:05)
[2025-02-05] MEDS: INSULIN NPH 70-30 100UNIT/ML VIAL (10ML) 8 UNIT SUBQ (21:55)
== END 2025-02-05 22:00 | disposition home or self-care (01) ==
LOC: FBC 18:56
PROVIDERS: Admitting Provider Obstetrics & Gynecology; PCP Nurse Practitioner Family; Visit Provider Obstetrics & Gynecology
DX: O26.893 Other specified pregnancy related conditions, third trimester (principal); R10.9 Unspecified abdominal pain; Z3A.29 29 weeks gestation of pregnancy
CPT/HCPCS: 36415; 59025; 80053; 81003; 82150; 83690; 85025; G0378; G0379

== ENCOUNTER 2025-02-08 15:46 | Outpatient (OUT) | payer OTHER, SELFPAY ==
--- NOTE | 2025-02-08 15:50 | US_ITS ---
[place] [id number] Patient Name: SARAHY SPENCE MRN: [facility]:[id number] date: 1990 Sex: F Assigned [facility] Current Patient Location: Accession/Order Number: [id number] Exam Date: 02/08/2025 16:51 Report Date: 02/08/2025 16:52 At the request of: YEISON RAINEY DO Procedure: US OB BPP w non-stress Ultrasound obstetrical biophysical profile HISTORY: Gestational diabetes There is adequate breathing movement, gross body movement, tone and amniotic fluid volume for total score of 8 out of 8. The amniotic fluid index is 12.5 cm within normal limits. The heart rate is 138 bpm. US/US OB BPP w non-stress IMPRESSION: Adequate biophysical profile. Impression dictated by: Shemar Briggs M.D.02/08/2025 4:52 PM Dictation Location: [place] [address] Electronically authenticated by: [id number] Y Date: 02/08/2025 16:52
[2025-02-08 16:24] VITALS: BP 130/88; PULSE 103
== END 2025-02-08 16:47 | disposition home or self-care (01) ==
LOC: US 15:46 → FBC 15:48
PROVIDERS: PCP Nurse Practitioner Family; Visit Provider Obstetrics & Gynecology
DX: O24.419 Gestational diabetes mellitus in pregnancy, unspecified control (principal); Z3A.30 30 weeks gestation of pregnancy
CPT/HCPCS: 76818

== ENCOUNTER 2025-02-15 15:52 | Outpatient (OUT) | payer OTHER, SELFPAY ==
--- NOTE | 2025-02-15 15:56 | US_ITS ---
[place] [id number] Patient Name: SARAHY SPENCE MRN: [facility]:[id number] date: 1990 Sex: F Assigned Patient Location: [facility] Current Patient Location: [facility] Accession/Order Number: [id number] Exam Date: 02/15/2025 17:06 Report Date: 02/15/2025 17:06 At the request of: YEISON RAINEY DO Procedure: US OB BPP w non-stress Ultrasound biophysical profile HISTORY: Gestational diabetes There is adequate breathing movement, gross body movement, tone and amniotic fluid volume for total score of 8 out of 8. Amniotic fluid index is 17.1 cm within normal limits. The heart rate is 144 bpm. US/US OB BPP w non-stress IMPRESSION: Adequate ultrasound biophysical profile Impression dictated by: Shemar Briggs M.D.02/15/2025 5:06 PM [facility] Electron[facility] authenticated by: [id number] Y Date: 02/15/2025 17:06
[2025-02-15 16:42] VITALS: BP 163/93; PULSE 89
[2025-02-15 17:06] VITALS: BP 142/80; PULSE 83
== END 2025-02-15 17:10 | disposition home or self-care (01) ==
LOC: US 15:53 → FBC 15:56
PROVIDERS: PCP Nurse Practitioner Family; Visit Provider Obstetrics & Gynecology
DX: O24.419 Gestational diabetes mellitus in pregnancy, unspecified control (principal); Z3A.31 31 weeks gestation of pregnancy
CPT/HCPCS: 76818

== ENCOUNTER 2025-02-22 15:47 | Outpatient (OUT) | payer OTHER, SELFPAY ==
[2025-02-22 16:01] VITALS: BP 138/76; BP 177/106; PULSE 92
--- OUTSIDE RECORDS SUMMARY | 2025-02-22 16:02 | XMS_ITS | CCD ---
Author Organization [facility] [employer]iniSyak Care Team Providers Care Sweater Operator Name Role Phone Terri Medina Unavailable Scally, Janette Unavailable SCALLY, JANETTE Attending Unavailable SCALLY, JANETTE Consulting Unavailable SCALLY, JANETTE Admitting Unavailable DELORIS, LETICIA Primary Care Unavailable Deloris SHADOWGRAPH SCALE OPERATOR-CLeticia Attending Unavailable Deloris SHADOWGRAPH SCALE OPERATOR-CLeticia Primary Care Unavailable Mirta Matta Unavailable Deloris, GREEN INSPECTOR Leticia Neville Primary Care Provider DANNY Hinojosa-C Araceli Attending Provider Deloris, Leticia A Admitting Unavailable Deloris, Leticia A Attending Unavailable Deloris, Leticia Jamin Primary Care Unavailable Micaela, Araceli Attending Unavailable Araceli Hinojosa Admitting Unavailable Deloris, Leticia Jamin Primary Care Unavailable Micaela Araceli Unavailable Mirta Matta NP Primary Care Provider Deloris GREEN INSPECTOR-Leticia RAMÍREZ Primary Care Provider [phone] Paxton BLANK-Mirta DELGADO Primary Care [facility] er Paxton BLANK-Mirta DELGADO Primary Care [facility] er SAMARA BROWER Attending Unavailable KEE, GLENN Referring Unavailable KEE, GLENN Attending Unavailable KEE, GLENN Attending Unavailable DANY, SANAZ Attending Unavailable KEE, GLENN Attending Unavailable DANY, SANAZ Attending Unavailable KEE, GLENN Attending Unavailable DANY, SANAZ Attending Unavailable Mirta Matta NP Primary Care Provider Medications Current Medications Medication Drug Class(es) Dates Sig (Normalized) Sig (Original) acetaminophen 325 mg oral tablet (6 sources) take 2 tablets by mouth every six hours as needed for pain and headache acetaminophen (TYLENOL) 325 mg tablet Take 2 tablets (650 mg total) by mouth every 6 (six) hours as needed for pain or headaches. States takes 1-2 tablets as needed Active aspirin 81 mg delayed release oral tablet (20 sources) Platelet Aggregation Inhibitor, Nonsteroidal Anti-inflammatory Drug Start: 12-28-2024 End: 12-28-2025 take 1 tablet by mouth once daily aspirin 81 MG EC tablet Indications: Gestational diabetes mellitus (GDM), antepartum, gestational diabetes method of control unspecified Take 1 tablet (81 mg) by mouth Daily 30 tablet 12/28/2024 12/28/2025 Active benzocaine 60 mg/ml / isopropyl alcohol 0.7 ml/ml medicated pad (12 sources) Standardized Chemical Allergen isopropyl alcohol-benzocaine (ALCOHOL-BENZOCAINE) 70-6 % pads, medicated Apply 1 each topically as needed (Use four times daily to check FSBS). Active Blood Glucose Monitoring Suppl (D-Care Glucometer) w/Device kit (18 sources) Start: 11-05-2024 End: 11-05-2025 Blood Glucose [...] Active blood-glucose meter (BLOOD GLUCOSE MONITORING) kit (12 sources) blood-glucose me ter (BLOOD GLUCOSE MONITORING) kit 1 each by other route once daily. Use four times daily to check FSBS. In the morning prior to breakfast and 1 hour after each meal Active Cholecalciferol (5 sources) Vitamin D Start: 04-05-2023 take 1 capsule by mouth every week Cholecalciferol 1.25 MG (19501 UT) 1 capsule Orally weekly for 56 days follow week 9 with D3 4000 IU daily Apr, Active take 1 capsule by mouth every we ek Cholecalciferol 1.25 MG (84710 UT) 1 capsule Orally weekly for 56 days follow week 9 with D3 4000 IU daily Active 3 ml insulin aspart, human 100 unt/ml pen injector (20 sources) Insulin Analog Start: 01-14-2025 End: 01-28-2025 insulin aspart U-100 (NovoLOG) 100 unit/mL (3 mL) insulin pen Prime with 2 units then inject 18 units before breakfast, 20 units before lunch, 24 units before dinner 15 mL 3 01/28/2025 Active Start: 01-14-2025 End: 01-14-2025 insulin aspart U-100 (NovoLO G) 100 unit/mL injection Inject 16 units with breakfast, lunch, dinner, subcutaneously in abdomen, prime 2 units 10 mL 11 01/14/2025 01/14/2025 Discontinued (Alternate therapy) Start: 12-31-2024 insulin aspart FlexPen (NovoLOG) 100 UNIT/ML pen Inject 10 Units under the skin in the morning and 10 Units at noon and 10 Units in the evening. Inject with meals. 12/31/2024 Active Start: 12-31-2024 End: 01-14-2025 insulin aspart U-100 (NovoLO G) 100 unit/mL injection Inject 10 units with breakfast, lunch, dinner, subcutaneously in abdomen, prime 2 units 10 mL 11 12/31/2024 01/14/2025 Discontinued (Reorder) 3 ml insulin glargine 100 unt/ml pen injector (20 sources) Insulin Analog Start: 01-14-2025 End: 01-28-2025 inject 2 [IU] by subcutaneous injection once in the morning insulin glargine (LANTUS SOLOSTAR U-100 INSULIN) 100 unit/mL (3 mL) insulin pen Indications: Insulin controlled gestational diabetes mellitus (GDM) in second trimester , 24 weeks gestation of Inject 30 units in the morning and 36 units in the evening, subcutaneously in abdomen, prime 2 units 15 mL 4 01/28/2025 Active Start: 12-31-2024 End: 01-14-2025 insulin glargine (LANTUS JAE OSTAR U-100 INSULIN) 100 unit/mL (3 mL) insulin pen Indications: Insulin controlled gestational diabetes mellitus (GDM) in second trimester , 24 weeks gestation of Inject 12 units in the morning and 24 units in the evening, subcutaneously in abdomen, prime 2 units 15 mL 4 12/31/2024 01/14/2025 Discontinued (Reorder) Start: 12-28-2024 End: 05-27-2025 insulin glargine (Lantus Jae oStar) 100 UNIT/ML pen Indications: Hyperglycemia , Gestational Diabetes Inject 16 Units under the skin at bedtime for 150 doses FILL ACCORDING TO INSURANCE COVERAGE 24 mL 2 12/28/2024 05/27/2025 Active Start: 11-30-2024 End: 04-30-2025 inject 10 [IU] by subcutaneous injection at bedtime insulin glargine (Lantus SoloStar) 100 UNIT/ML pen Indications: Hyperglycemia , Gestational Diabetes Inject 10 Units under the skin at bedtime for 150 doses FILL ACCORDING TO INSURANCE COVERAGE 15 mL 12/01/2024 12/28/2024 Discontinued End: 12-31-2024 inject 0.16 mL by subcutaneous injection once daily insulin glargine (LANTUS) 100 unit/mL injection Inject 0.16 mL (16 Units total) under the skin nightly. 12/31/2024 Discontinued 3 ml insulin isophane, human 100 unt/ml pen injector (1 source) Start: 01-28-2025 insulin NPH isoph U-100 human (HumuLIN N KWIKPEN) 100 unit/mL (3 mL) insulin pen Prime with 2 units then inject 8 units SQ into ABD each evening 15 mL 3 01/28/2025 Active isopropyl alcohol 0.7 ml/ml medicated pad (18 sources) Start: 11-05-2024 Alcohol Swabs (Alcohol Prep [...] 30 days Started via sample Apr, Active magnesium oxide 400 mg oral tablet (9 sources) Start: 01-11-2025 End: 02-10-2025 take 1 tablet by mouth once daily magnesium oxide (Mag-Ox) 400 MG tablet Indications: Dizziness Take 1 tablet (400 mg) by mouth Daily 30 tablet 6 01/11/2025 02/10/2025 Active meclizine hydrochloride 25 mg oral tablet [...] hydrochloride 500 mg extended release oral tablet (10 sources) Biguanide Start: 01-14-2024 End: 01-13-2025 take 1 tablet by mouth every twenty-four hours at mealtime metFORMIN XR (Glucophage-XR) 500 MG 24 hr tablet Indications: Abnormal uterine bleeding (AUB) Take 1 tablet (500 mg) by mouth in the evening. Take with meals Do not crush, chew, or split. 30 tablet 11 01/14/2024 10/26/2024 Discontinued End: 01-07-2025 take 1 tablet by mouth once daily at breakfast metFORMIN XR (GLUCOPHAGE XR) 500 mg 24 hr tablet Take 1 tablet (500 mg total) by mouth daily with breakfast. 01/07/2025 Discontinued (Formulary change) multivitamin () 27-0.8 MG tablet (20 sources) Start: 08-29-2023 take 1 tablet by mouth in the morning multivitamin () 27-0.8 MG tablet Take 1 tablet by mouth in the morning. 08/29/2023 Active ondansetron 4 mg disintegrating oral tablet (20 sources) Serotonin-3 Receptor Antagonist Start: 09-15-2024 End: [...] if needed for nausea or vomiting Active Jjigsc50-Kqpr Fum-Folic Ac-Om3 (One Daily ) 28-800-440 mg-mcg-mg combo pack (1 source) Start: 09-14-2024 Wbrcmd42-Npwe Fum-Folic Ac-Om3 (One Daily ) 28-800-440 mg-mcg-mg combo pack Active PKG PO September 14, 2024 12:00am (4 sources) Active rf900-wdep-wjzaf acid ( MULTI) 27-800 mg-mcg tablet (12 sources) take 1 capsule by mouth once daily pe599-vmtb-ubuej acid ( MULTI) 27-800 mg-mcg tablet Take [...] Active Problems Problem Classification Problem Date Documented Date Episodic/Chronic Abdominal pain (17 sources) Pain in female pelvis; Translations: [Pelvic and perineal pain] Onset: 12-28-2024 12-28-2024 Episodic Diabetes mellitus with complications (1 source) Hyperglycemia due to diabetes mellitus; Translations: [Type 2 diabetes mellitus with hyperglycemia] 12-31-2024 Chronic Diabetes mellitus without complication (2 sources) Abnormal glucose tolerance test; Translations: [Other abnormal glucose] 12-28-2024 Episodic Diabetes or abnormal glucose tolerance complicating ; childbirth; or the puerperium (20 sources) Gestational diabetes mellitus, class A>2< ; Translations: [Gestational diabetes mellitus in , insulin controlled] Onset: 01-14-2025 11-30-2024 Episodic Disorders of lipid metabolism (19 sources) Hyperlipidemia; Translations: [Hyperlipidemia, unspecified] Chronic Fracture of upper limb (2 sources) Fracture of unspecified carpal bone, left wrist, subsequent encounter for fracture with routine healing; Translations: [Torus fracture of lower end of left radius, initial encounter for closed fracture] Episodic Immunizations and screening for infectious disease (3 sources) Contact with and (suspected) exposure to other viral communicable diseases; Translations: [Exposure to sexually transmissible disorder] Episodic Menstrual disorders (3 sources) Irregular periods; [...] Translations: [Swelling of limb] 09-14-2024 Episodic Other female genital disorders (2 sources) Vaginal discharge; Translations: [Other specified noninflammatory disorders of vagina] 12-28-2024 Episodic Other non-traumatic joint disorders (2 sources) [...] obesity due to excess calories Chronic Other screening for suspected conditions (not mental disorders or infectious disease) (6 sources) Patient encounter status; Translations: [Encounter for [...] state, incidental] 09-14-2024 Episodic Residual codes; unclassified (2 sources) Gestation period, 20 weeks; Translations: [20 weeks gestation of ] 11-30-2024 Episodic Residual codes; unclassified (6 sources) Gestation period, 24 weeks; Translations: [24 weeks gestation of ] 12-31-2024 Episodic Residual codes; unclassified (2 sources) Gestation period, 28 weeks; Translations: [28 weeks gestation of ] 01-27-2025 Episodic Residual codes; unclassified (2 sources) Gestation period, 30 weeks; Translations: [30 weeks gestation of ] 02-08-2025 Episodic Unclassified (1 source) Pain in left wrist; Translations: [Pain in left wrist] Onset: 11-29-2023 Unclassified (1 source) Dietary counseling and surveillance; Translations: [Dietary counseling and surveillance] Onset: 05-13-2023 Unclassified (4 sources) OB Reminders Onset: 10-07-2024 10-07-2024 Past or Other Problems Problem Classification Problem Date Documented Da te Episodic/Chronic Other and delivery including normal (20 sources) ; Translations: [Encounter for supervision of normal , unspecified, unspecified trimester] Onset: 10-26-2024 09-25-2024 Episodic Residual codes; unclassified (20 sources) Gestation period, 15 weeks; Translations: [15 weeks gestation of ] Onset: 10-26-2024 10-26-2024 Episodic Unclassified (1 source) Insulin resistance E88.819 Results Test Name Value Interpretation Reference Range Facility US OB BPP W NON-STRESS on 02-15-2025 [place] [address] Ultrasound Report Signed Patient: SANDRA SPENCE MR#: [id number] : 1990 Acct:[id number] Age/Sex: 34 / F ADM Date: 02/15/25 Loc: [facility] 250-[address]: Glenn Sweet D.O. Ordering Physician: Glenn Sweet D.O. Date of Service: 02/15/25 Procedure(s): US OB BPP w non-stress Accession Number(s): [id number] cc: Glenn Sweet D.O.; MIRTA MATTA [address] [address] Patient Name: SANDRA SPENCE MRN: [id number] date: 1990 Sex: F Assigned Patient Location: [facility] Current Patient Location: [facility] Accession/Order Number: [id number] Exam Date: 02/15/2025 17:06 Report Date: 02/15/2025 17:06 At the request of: GLENN SWEET DO Procedure: US OB BPP w non-stress Ultrasound biophysical profile HISTORY: Gestational diabetes There is adequate breathing movement, gross body movement, tone and amniotic fluid volume for total score of 8 out of 8. Amniotic fluid index is 17.1 cm within normal limits. The heart rate is 144 bpm. US/US OB BPP w non-stress IMPRESSION: Adequate ultrasound biophysical profile Impression dictated by: Shemar Briggs M.D.02/15/2025 5:06 PM Dictation Location[facility] Electronically authenticated by: [id number] Y Date: 02/15/2025 17:06 Dictated By: Shemar Briggs D.O. 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 Ordering Physician: Glenn Sweet D.O. Date of Service: 02/15/25 Procedure(s): US OB BPP w non-stress Accession Number(s): [id number] cc: Glenn Sweet D.O.; MIRTA MATTA [place] [phone] Patient Name: SANDRA SPENCE MRN: [facility]:[id number] date: 1990 Sex: F Assigned Patient Location: [facility] Current Patient Location: [facility] Accession/Order Number: [id number] Exam Date: 02/15/2025 17:06 Report Date: 02/15/2025 17:06 At the request of: GLENN SWEET DO Procedure: US OB BPP w non-stress Ultrasound biophysical profile HISTORY: Gestational diabetes There is adequate breathing movement, gross body movement, tone and amniotic fluid volume for total score of 8 out of 8. Amniotic fluid index is 17.1 cm within normal limits. The heart rate is 144 bpm. US/US OB BPP w non-stress IMPRESSION: Adequate ultrasound biophysical profile Impression dictated by: Shemar Briggs M.D.02/15/2025 5:06 PM Dictation Location: [place] [address] Electronically authenticated by: [id number] Y Date: 02/15/2025 17:06 Dictated By: Shemar Briggs D.O. Signed By: 02/15/251708 DD/ 05 TD/TT: Button Sewing Machine Operator: [facility] Radiology Study observation (narrative) [facility] US OB BPP W NON-STRESS Ordered By: Radiologist Radiology on 02-15-2025 [facility] No Paper [employer] Work Phone: US OB BPP W NON-STRESS on 02-08-2025 [place] [address] Ultrasound Report Signed Patient: SANDRA SPENCE MR#: [id number] : 1990 Acct:[id number] Age/Sex: 34 / F ADM Date: 02/08/25 Loc: US Attending Dr: Glenn Sweet D.O. Ordering Physician: Glenn Sweet D.O. Date of Service: 02/08/25 Procedure(s): US OB BPP w non-stress Accession Number(s): [id number] cc: Glenn Sweet D.O.; MIRTA MATTA [place] [address] Patient Name: SANDRA SPENCE MRN: [id number] date: 1990 Sex: F Assigned Patient Location: [facility] Current Patient Location: Accession/Order Number: [id number] Exam Date: 02/08/2025 16:51 Report Date: 02/08/2025 16:52 At the request of: GLENN SWEET DO Procedure: US OB BPP w non-stress Ultrasound obstetrical biophysical profile HISTORY: Gestational diabetes There is adequate breathing movement, gross body movement, tone and amniotic fluid volume for total score of 8 out of 8. The amniotic fluid index is 12.5 cm within normal limits. The heart rate is 138 bpm. US/US OB BPP w non-stress IMPRESSION: Adequate biophysical profile. Impression dictated by: Shemar Briggs M.D.02/08/2025 4:52 PM Dictation Location: [place] [address] Electronically authenticated by: [id number] Y Date: 02/08/2025 16:52 Dictated By: Shemar Briggs D.O. Signed By: 02/08/251654 DD/ 51 TD/TT: Button Sewing Machine Operator: [facility] Radiology, Radiologist, - 02/08/2025 [place] [address] Ultrasound Report Signed Patient: SANDRA SPENCE MR#: [id number] : 1990 Acct:[id number] Age/Sex: 34 / F ADM Date: 02/08/25 Loc: US Attending Dr: Glenn Sweet D.O. Ordering Physician: Glenn Sweet D.O. Date of Service: 02/08/25 Procedure(s): US OB BPP w non-stress Accession Number(s): [id number] cc: Glenn Sweet D.O.; MIRTA MATTA [place] [address] Patient Name: SANDRA SPENCE MRN: [facility]:[id number] date: 1990 Sex: F Assigned Patient Location: [facility] Current Patient Location: Accession/Order Number: [id number] Exam Date: 02/08/2025 16:51 Report Date: 02/08/2025 16:52 At the request of: GLENN SWEET DO Procedure: US OB BPP w non-stress Ultrasound obstetrical biophysical profile HISTORY: Gestational diabetes There is adequate breathing movement, gross body movement, tone and amniotic fluid volume for total score of 8 out of 8. The amniotic fluid index is 12.5 cm within normal limits. The heart rate is 138 bpm. US/US OB BPP w non-stress IMPRESSION: Adequate biophysical profile. Impression dictated by: Shemar Briggs M.D.02/08/2025 4:52 PM Dictation Location: [place] [address] Electronically authenticated by: [id number] Y Date: 02/08/2025 16:52 Dictated By: Shemar Briggs D.O. 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 YELLOW YELLOW [facility] GLUCOSE URINE UA >=1000 Abnormal NEGATIVE mg/dL [facility] Interpretation and review of laboratory results Abnormal [facility] Ketones Ql (U) 15 mg/dL Abnormal NEGATIVE [facility] Leukocyte esterase Test strip Ql (U) Negative NEGATIVE [facility] NITRITE URINE Negative NEGATIVE [facility] pH (U) 6.0 [pH] 5.0 - 9.0 [facility] PROTEIN URINE Negative NEG/TRACE mg/dL [facility] SPECIFIC GRAVITY URINE 1.015 1.005 - 1.025 [facility] URINE MICROSCOPIC INDICATED NO [facility] UROBILINOGEN URINE 0.2 EU/dL 0.2 - 1.0 EU/dL [facility] US OB BPP W NON-STRESS on 02-01-[address] [address] Ultrasound Report Signed Patient: SANDRA SPENCE MR#: [id number] : 1990 Acct:[id number] Age/Sex: 34 / F ADM Date: 02/01/25 Loc: US Attending Dr: Glenn Sweet D.O. Ordering Physician: Glenn Sweet D.O. Date of Service: 02/01/25 Procedure(s): US OB BPP w non-stress Accession Number(s): [id number] cc: Glenn Sweet D.O.; MIRTA MATTA [place] [phone] Patient Name: SANDRA SPENCE MRN: [facility]:[id number] date: 1990 Sex: F Assigned Patient Location: [facility] Current Patient Location: Accession/Order Number: [id number] Exam Date: 02/01/2025 18:23 Report Date: 02/01/2025 18:24 At the request of: GLENN SWEET DO Procedure: US OB BPP w non-stress Ultrasound started biophysical profile HISTORY: Gestational diabetes breathing movement suboptimal. Adequate gross body movement, tone and amniotic fluid volume for a total score of 6 out of 8. Amniotic fluid index is 15.1 cm. heart rate 35 bpm. US/US OB BPP w non-stress IMPRESSION: Suboptimal breathing movement. Total biophysical profile score 6 out of 8. Impression dictated by: Shemar Briggs M.D.02/01/2025 6:24 PM Dictation Location: [place] [address] Electronically authenticated by: [id number] Y Date: 02/01/2025 18:24 Dictated By: Shemar Briggs D.O. 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 Ordering Physician: Kee,Glenn D.O. Date of Service: 02/01/25 Procedure(s): US OB BPP w non-stress Accession Number(s): [id number] cc: Glenn Sweet D.O.; MIRTA AMTTA [place] [address] Patient Name: SANDRA SPENCE MRN: [id number] date: 1990 Sex: F Assigned Patient Location: [facility] Current Patient Location: Accession/Order Number: [id number] Exam Date: 02/01/2025 18:23 Report Date: 02/01/2025 18:24 At the request of: GLENN SWEET DO Procedure: US OB BPP w non-stress Ultrasound started biophysical profile HISTORY: Gestational diabetes breathing movement suboptimal. Adequate gross body movement, tone and amniotic fluid volume for a total score of 6 out of 8. Amniotic fluid index is 15.1 cm. heart rate 35 bpm. US/US OB BPP w non-stress IMPRESSION: Suboptimal breathing movement. Total biophysical profile score 6 out of 8. Impression dictated by: Shemar Briggs M.D.02/01/2025 6:24 PM Dictation Location: [place] [address] Electronically authenticated by: [id number] Y Date: 02/01/2025 18:24 Dictated By: Shemar Briggs D.O. 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 Machine Operator: [facility] [employer] Radiology Study observation (narrative) [facility] US OB BPP W NON-STRESS Ordered By: Radiologist Radiology on 02-01-2025 [facility] No [employer] Work Phone: Urinalysis macro (dipstick) panel (U)on 01-27-2025 Bilirubin, UA Positive Negative - 4(70) +++ mg/dL [facility] Comment on above: small Blood, UA Positive Negative - 50 Sekou/mcL [facility] Comment on above: Trace-Intact Clarity, UA Clear [facility] iAgreemi re Color, UA Yellow [facility] Glucose, UA Negative Negative - 2000(110) ++++ mg/dL [facility] Interpretation and review of laboratory results Abnormal [facility] Ketones, UA Positive Negative - 160(16) ++++ mg/dL [facility] Comment on above: 40mg/dL Leukocytes, UA Trace Negative - 500+++ Laine/mcL [facility] Nitrite, UA Negative Negative - Positive [facility] pH, UA 5.5 5 - 9 [facility] [employer] Protein, UA Positive Negative - 2000(20) ++++ mg/dL [facility] Comment on above: 100mg/dL Spec Grav, UA 1.03 1 - 1.03 [facility] Urobilinogen, UA 0.2 0.2 - 12 mg/dL [facility] No Paper Just [employer] Glucose random or fasting- P OCTon 12-31-2024 External Glucose Fasting Or Random (Fbs) [address] [employer] [facility] [employer] [facility] IGP,APTIMA HPV,AGE GDLNon AGE GDLN ACOG TESTING Note . [facility] Comment on above: TESTS RESULT FLAG U NITS REF RANGE LAB Clinician Provided Cytology Information Source.............Cervix Other.............. No. of containers..01 ThinPrep Vial Age Algo ACOG Aleyda... 30-65 01 FLAG LEGEND: L-Low Normal,H-High Normal,LL-Alert Low,HH-Alert High <-Panic Low,>-Panic High,A-Abnormal,AA-Critical Abnormal Performed at: 01 =G [facility] [place] [address] Juli Cheng MD, HPV APTIMA Negative Negative [facility] Comment on above: This nucleic acid am plification test detects fourteen high- risk HPV types (16,18,31,33,35,39,45,51,52,56,58,59,66,68) without differentiation. Performed at: =G - [facility], [place] [id number] Applied Research Director: Juli Cheng MD, Phone: [phone] Performed at: - [facility], [place] [id number] Applied Research Director: Juli Cheng MD, Phone: [phone] IGP, APTIMA HPV, RFX 16/18,45 Note . [facility] Comment on above: TESTS RESULT FLAG UN ITS REF RANGE LAB DIAGNOSIS: 02 NEGATIVE FOR INTRAEPITHELIAL LESION OR MALIGNANCY. Specimen adequacy: 02 Satisfactory for evaluation. No endocervical component is identified. Performed by: Batool Abraham, Bank Messenger (ASCP) . 02 Note: Note 02 The Pap smear is a screening test designed to aid in the detection of premalignant and malignant conditions of the uterine cervix. It is not a diagnostic procedure and should not be used as the sole means of detecting cervical cancer. Both false-positive and false-negative reports do occur. Test Methodology: Note 02 This liquid based ThinPrep(R) pap test was screened with the use of an image guided system. HPV Genotype Reflex Note 02 Criteria not met, HPV Genotype not performed. FLAG LEGEND: L-Low Normal,H-High Normal,LL-Alert Low,HH-Alert High <-Panic Low,>-Panic High,A-Abnormal,AA-Critical Abnormal Performed at: 02 WB [facility] [address] [id number] Juli Cheng MD, SP[facility] Healthcar e POCT Hemoglobin A1con 2024 HbA1c (Bld) [Mass fraction] 5.8 % 4 - 7 % [facility] Unlisted Lab Teston 12-31-19 [facility] RECURRENT VAGINITIS (HTRX)on 12-29-2024 ATOPOBIUM VAGINAE 0 [facility] ATOPOBIUM VAGINAE Not detected [facility] BVAB 2,3 (BACTERIAL VAGINOSIS ASSOCIATED BACTERIA 2, 3); MOBILUNCUS SPP 0 [facility] BVAB 2,3 (BACTERIAL VAGINOSIS ASSOCIATED BACTERIA 2, 3); MOBILUNCUS SPP Not detected [facility] DELVIN ALBICANS, PARAPSILOSIS, TROPICALIS 0 [facility] DELVIN ALBICANS, PARAPSILOSIS, TROPICALIS Not detected [facility] DELVIN GLABRATA 0 [facility] DELVIN GLABRATA Not detected [facility] DELVIN KRUSEI 0 [facility] DELVIN KRUSEI Not detected [facility] lthcare CHLAMYDIA TRACHOMATIS 0 [facility] Healthcare CHLAMYDIA TRACHOMATIS Not detected [facility] Healthcare GARDNERELLA VAGINALIS 0 [facility] GARDNERELLA VAGINALIS Not detected [facility] Healthcare MEGASPHAERA (TYPES 1, 2) 0 [facility] MEGASPHAERA (TYPES 1, 2) Not detected [facility] MYCOPLASMA GENITALIUM 0 [facility] MYCOPLASMA GENITALIUM Not detected [facility] NEISSERIA GONORRHOEAE 0 [facility] Healthcare NEISSERIA GONORRHOEAE Not detected [facility] TRICHOMONAS VAGINALIS 0 [facility] TRICHOMONAS VAGINALIS Not detected [facility] Health[facility] e Urinalysis macro (dipstick) panel (U)on 12-28-2024 Bilirubin, UA Negative Negative - 4(70) +++ mg/dL [facility] Blood, UA Negative Negative - 50 Sekou/mcL [facility] Clarity, UA Clear [facility] Healthca re Color, UA Yellow [facility] Healthcar e Glucose, UA Positive Negative - 1999(110) ++++ mg/dL [facility] Comment on above: 100 Interpretation and review of laboratory results Abnormal [facility] Ketones, UA Negative Negative - 160(16) ++++ mg/dL [facility] Leukocytes, UA Negative Negative - 500+++ Laine/mcL [facility] Nitrite, UA Negative Negative - Positive [facility] pH, UA 6 5 - 9 [facility] e Protein, UA Trace Negative - 1999(20) ++++ mg/dL [facility] Spec Grav, UA 1.025 1 - 1.03 [facility] Urobilinogen, UA 0.2 0.2 - 12 mg/dL [facility] US OB 14+ WEEKS ANATOMY SCAN on [...] [facility] Clarity, UA Clear [facility] iAgreemi re Color, UA Yellow [facility] No Paper Just Vapor e Glucose, UA Negative Negative - 2000(110) [...] Road pH, UA 6 5 - 9 [facility] No [employer] Just [employer] Protein, UA Negative Negative - 2000(20) ++++ mg/dL [facility] Spec Grav, UA 1.005 1 - 1.03 [facility] Urobilinogen, UA 0.2 0.2 - 12 mg/dL [facility] Healthcar e GLUCOSE 1 HOURon 11-02-2024 Glucose [Mass/Vol] 187 mg/dL High NINF - 13 0 mg/dL [facility] Interpretation and review of laboratory results Abnormal [facility] CLINISYNC Glucose 1h post 50g loadon 1 Glucose, 1 hr PP 50GM dose 187 [facility] iAgree System No Panel Informationon 11-02 [facility] [employer]Term[employer] [facility] e Urinalysis macro (dipstick) panel (U)Ordered By: Lexi Momin on 10-26-2024 Bilirubin, UA Negative Negative - 4(70) +++ mg/dL [facility] Work Phone: Blood, UA Negative Negative - 50 Sekou/mcL [facility] Work Phone: Clarity, UA Clear [facility] Healthca re Work Phone: Color, UA Yellow [facility] Healthcar e Work Phone: Glucose, UA Positive Negative - 1999(110) ++++ mg/dL [facility] Healthcare Work Phone: Comment on above: 500 Interpretation and review of laboratory results Abnormal [facility] Healthcare Work Phone: Ketones, UA Positive Negative - 160(16) ++++ mg/dL [facility] Healthcare Work Phone: Comment on above: 15 Leukocytes, UA Negative Negative - 500+++ Laine/mcL [facility] Healthcare Work Phone: Nitrite, UA Negative Negative - Positive [facility] Healthcare Work Phone: pH, UA 5.5 5 - 9 [facility] [employer] e Work Phone: Protein, UA Positive Negative - 1999(20) ++++ mg/dL [facility] Healthcare Work Phone: Comment on above: 30 Spec Grav, UA 1.03 1 - 1.03 [facility] Health care Work Phone: Urobilinogen, UA 0.2 0.2 - 12 mg/dL [facility] Healthcare Work Phone: [facility] No Paper Just Vapor e Work Phone: Drug Screen, Urineon 024 Amphetamine/Methamph etamine Negative [facility] Barbiturates Negative [facility] Benzodiazepines Negative [facility] Cocaine Metabolite Negative [facility] Ecstasy Negative [facility] Methadone Negative [facility] Opiates Negative [facility] Oxycodone Negative [facility] Phencyclidine Negative [facility] Thc Marijuana, Urine Negative [facility] HIV 1&2 AB/AG Screen (P24 AG )on 10-08-2024 HIV 1&2 AB/AG Non-Reactive [facility] Hemoglobin A1con 10-08-2024 HbA1c (Bld) [Mass fraction] 5.6 % 4.0 - 6.0 % [facility] Hepatitis B surface antigeno n 10-08-2024 Hepatitis B Surface Antigen Negative [facility] Hepatitis C(HCV) Ab w/ Refle x to PCRon 10-08-2024 HCV Ab Ql (S) Negative [facility] No Panel Informationon 10-08 [facility] Syphilis Total(Unknown Syphi lis Status)on 10-08-2024 Syphilis Non-Reactive [facility] Type and screenon 10-08-2024 Abo/Rh(D) Positive [facility] HCG ( test) Ql (U)o n 09-25-2024 Interpretation and review of laboratory results Abnormal [facility] Preg Test, Ur Positive Negative [facility] Healthcar e Urinalysis macro (dipstick) panel (U)on 09-25-2024 Bilirubin, UA Negative Negative - 4(70) +++ mg/dL [facility] Blood, UA Negative Negative - 50 Sekou/mcL [facility] Clarity, UA Clear [facility] re Color, UA Yellow [facility] No Paper Just Vapor e Glucose, UA Negative Negative - 1999(110) [...] Road pH, UA 5.5 5 - 9 [facility] No Paper Just V[employer] Protein, UA Negative Negative - 1999(20) ++++ mg/dL [facility] Spec Grav, UA 1.02 1 - 1.03 [facility] Urobilinogen, UA 1.0 0.2 - 12 mg/dL [facility] US PELVIC COMPLETE W/ TVon [...] 3V*on 2023 XR wrist LT min 3V* [facility] [employer] Other XR wrist LT min 3V* [facility] leaselock Other XR wrist LT min 3V* [address] [place] [address] [employer] Other XR wrist LT min 3V* [place] [address] [employer] Other XR wrist LT min 3V* XRay Report [facility] Other XR wrist LT min 3V* Signed [employer] Other XR wrist LT min 3V* Patient: Sandra Spence MR#: [id number] [employer] Other XR wrist LT min 3V* [id number] [employer] Other XR wrist LT min 3V* : 1990 Acct:[id number] [employer] Other XR wrist LT min 3V* Age/Sex: 33 / F ADM Date: 11/29/23 [employer] Other XR wrist LT min 3V* Loc: XDUCLY Room: Type: [facility] [employer] Other XR wrist LT min 3V* Attending Dr: Araceli ALEX [employer] Other XR wrist LT min 3V* Copies to: ISAI Fisher [employer] Other XR wrist LT min 3V* Ordering Provider: ISAI Fisher [employer] Other XR wrist LT min 3V* Date of Service: 11/29/23 [employer] Other XR wrist LT min 3V* XR/XR wrist LT min 3V*: LEFT WRIST INJURY [employer] Other XR wrist LT min 3V* LEFT WRIST - 4 views [employer] Other XR wrist LT min 3V* CLINICAL HISTORY: Patient fell on steps this morning now with pain and swelling left wrist. [employer] Other XR wrist LT min 3V* COMPARISON: None [employer] Other XR wrist LT min 3V* FINDINGS: [employer] Other XR wrist LT min 3V* No focal soft tissue abnormality. A subtle linear lucency is seen involving the distal radius [employer] Other XR wrist LT min 3V* possibly representing a nondisplaced fracture. Distal ulna appears intact. Carpus appears intact. No [employer] Other XR wrist LT min 3V* bony erosions. N [employer] Other XR wrist LT min 3V* XR/XR wrist LT min 3V* [employer] Other XR wrist LT min 3V* IMPRESSION: [place] Other XR wrist LT min 3V* A SUBTLE LINEAR LUCENCY IS SEEN INVOLVING THE DISTAL RADIUS POSSIBLY REPRESENTING A NONDISPLACED [employer] Other XR wrist LT min 3V* FRACTURE. FOLLOW-UP IS RECOMMENDED. [employer] Other XR wrist LT min 3V* Impression dictated by: Tremaine Larsen Jr., DMaryOMary11/29/2023 10:19 AM [employer] Other XR wrist LT min 3V* Dictation Location: [place] [address] [employer] Other XR wrist LT min 3V* Transcribed By: ABDULKADIR 11/29/[address] [facility] [employer] Other XR wrist LT min 3V* Dictated By: Tremaine Larsen Jr, DO 11/29/[address] [facility] [employer] Other XR wrist LT min 3V* Signed By: [employer] Other XR wrist LT min 3V* 11/29/23 1019 [facility] [employer] Other XR wrist LT min 3V* [facility] Main [place] [address] [place] [id number] XRay Report Signed Patient: Sandra Spence MR#: [id number] : 1990 Acct:[id number] Age/Sex: 33 / F ADM Date: 11/29/23 [facility]: Type: [facility] Attending Dr: Araceli ALEX Copies to: [...] RECOMMENDED. Impression dictated by: Tremaine Larsen Jr., D.OMary11/29/2023 10:19 AM Dictation Location: [place] [address] Transcribed By: ABDULKADIR 11/29/23 1019 Dictated By: Tremaine Larsen Jr, DO 11/29/23 1017 Signed By: 11/29/23 1019 Normal [facility] LIPID PROFILEon 03-02-2023 CHOL-HDL RATIO NORM SEE BELOW Normal [facility] Comment on above: Result Comment: 3.3 - 4.4 LOW RISK 4.4 - 7.1 AVERAGE RISK 7.1 - 11.0 MODERATE RISK >11.0 HIGH RISK Performed By: #### L IPID, CMP, TSHRFT4 #### [facility] [address] [address] [address] Aruna Lopez Cholesterol [Mass/Vol] 264 mg/dL Critically high <=200 [facility] Comment on above: Performed By: #### L IPID, CMP, TSHRFT4 #### [facility] [address] [address] [address] Aruna Lopez Cholesterol in HDL [Mass/Vol] 46 mg/dL Normal 40-60 [facility] Comment on above: Performed By: #### L IPID, CMP, TSHRFT4 #### [facility] [address] [address] [address] rAuna Lopez Cholesterol in LDL [Mass/Vol] 193.0 mg/dL Normal [facility] Comment on above: Performed By: #### L IPID, CMP, TSHRFT4 #### [facility] [address] [address] [address] Aruna Lopez Cholesterol.total/Ch olesterol in HDL [Mass ratio] 5.7 {ratio} Normal [facility] Comment on above: Performed By: #### L IPID, CMP, TSHRFT4 #### [facility] [address] [address] [address] Aruna Lopez HDL NORMAL > or = 60 mg/dl - LOW CARDIOVASCULAR RISK <40 mg/dl - HIGH CARDIOVASCULAR RISK Normal [facility] Comment on above: Performed By: #### L IPID, CMP, TSHRFT4 #### [facility] [address] [address] [address] Aruna Lopez LDL CALC NORMAL SEE BELOW Normal [facility] Comment on above: Result Comment: <100 mg/dl OPTIMAL 100 - 129 mg/dl NEAR OR ABOVE OPTIMAL 130 - 159 mg/dl BORDERLINE HIGH 160 - 189 mg/dl HIGH >190 mg/dl VERY HIGH Performed By: #### L IPID, CMP, TSHRFT4 #### [facility] [address] [address] [address] Aruna Lopez Triglyceride [Mass/Vol] 125 mg/dL Normal <=150 [facility] Comment on above: Performed By: #### L IPID, CMP, TSHRFT4 #### [facility] [address] [address] [address] Aruna Lopez VLDL CALC 25.0 mg/dL Normal [facility] Comment on above: Performed By: #### L IPID, CMP, TSHRFT4 #### [facility] [address] [address] [address] Aruna Lopez PROF 14(COMP METB)on 023 Albumin [Mass/Vol] 3.2 g/dL Critically low 3.4-5.0 Th [facility] Comment on above: Performed By: #### L IPID, CMP, TSHRFT4 #### [facility] [address] [place] [address] Dr. Aruna Lopez Albumin/Globulin [Mass ratio] 0.8 {ratio} Normal [facility] Comment on above: Performed By: #### L IPID, CMP, TSHRFT4 #### [facility] [address] [address] [address] Aruna Lopez ALP [Catalytic activity/Vol] 107 U/L Normal 46-116 [facility] Comment on above: Performed By: #### L IPID, CMP, TSHRFT4 #### [facility] [address] [address] [address] Aruna Lopez ALT [Catalytic activity/Vol] 17 U/L Normal 14-59 [facility] Comment on above: Performed By: #### L IPID, CMP, TSHRFT4 #### [facility] [address] [address] [address] Aruna Lopez Anion gap [Moles/Vol] 8.0 mmol/L Normal [facility] Comment on above: Performed By: #### L IPID, CMP, TSHRFT4 #### [facility] [address] [address] [address] Aruna Lopez AST [Catalytic activity/Vol] 29 U/L Normal 15-37 [facility] Comment on above: Performed By: #### L IPID, CMP, TSHRFT4 #### [facility] [address] [place] [address] Dr. Aruna Lopez Bilirubin [Mass/Vol] 0.5 mg/dL Normal 0.2-1.0 [facility] Comment on above: Performed By: #### L IPID, CMP, TSHRFT4 #### [facility] [address] [address] [address] Aruna Lopez Calcium [Mass/Vol] 8.9 mg/dL Normal 8.5-10.1 [facility] Comment on above: Performed By: #### L IPID, CMP, TSHRFT4 #### [facility] [address] [place] [address] Dr. Aruna Lopez Chloride [Moles/Vol] 105 mmol/L Normal 98-107 [facility] Comment on above: Performed By: #### L IPID, CMP, TSHRFT4 #### [facility] [address] [place] [address] Dr. Aruna Lopez CO2 [Moles/Vol] 29.6 mmol/L Normal 21.0-32.0 [facility] Comment on above: Performed By: #### L IPID, CMP, TSHRFT4 #### [facility] [address] [place] [address] Dr. Aruna Lopez Creatinine [Mass/Vol] 0.68 mg/dL Normal 0.55-1.02 [facility] Comment on above: Performed By: #### L IPID, CMP, TSHRFT4 #### [facility] [address] [place] [address] Dr. Aruna Lopez EGFR-AF ISRAELI >60 Normal >=60 [facility] Comment on above: Performed By: #### L IPID, CMP, TSHRFT4 #### [facility] [address] [place] [address] Dr. Aruna Lopez EGFR-NON AF ISRAELI >60 Normal >=60 [facility] Comment on above: Performed By: #### L IPID, CMP, TSHRFT4 #### [facility] [address] [address] [address] Aruna Lopez Globulin (S) [Mass/Vol] 4.1 g/dL Normal [facility] Comment on above: Performed By: #### L IPID, CMP, TSHRFT4 #### [facility] [address] [place] [address] Dr. Aruna Lopez Glucose [Mass/Vol] 98 mg/dL Normal 74-106 [facility] Comment on above: Performed By: #### L IPID, CMP, TSHRFT4 #### [facility] [address] [address] [address] Aruna Lopez Potassium [Moles/Vol] 4.6 mmol/L Normal 3.5-5.1 [facility] Comment on above: Performed By: #### L IPID, CMP, TSHRFT4 #### [facility] [address] [place] [address] Dr. Aruna Lopez Protein [Mass/Vol] 7.3 g/dL Normal 6.4-8.2 [facility] Comment on above: Performed By: #### L IPID, CMP, TSHRFT4 #### [facility] [address] [place] [address] Dr. Aruna Lopez Sodium [Moles/Vol] 138 mmol/L Normal 136-145 [facility] Comment on above: Performed By: #### L IPID, CMP, TSHRFT4 #### [facility] [address] [address] [address] Aruna Lopez Urea nitrogen [Mass/Vol] 9.0 mg/dL Normal 7.0-18.0 [facility] Comment on above: Performed By: #### L IPID, CMP, TSHRFT4 #### [facility] [address] [place] [address] Dr. Aruna Lopez Urea nitrogen/Creatinine [Mass ratio] 13.2 mg/mg Normal [facility] Comment on above: Performed By: #### L IPID, CMP, TSHRFT4 #### [facility] [address] [place] [address] Dr. Aruna Lopez TSH W/ REFLEX TO FT4on 03-02 TSH 1.177 uIU/mL Normal 0.358-3.740 [facility] Comment on above: Performed By: #### L IPID, CMP, TSHRFT4 #### [facility] [address] [place] [address] Dr. Aruna Lopez VITAMIN B12on 03-02-2023 Cobalamin (Vitamin B12) [Mass/Vol] 261.0 pg/mL Normal 193.0-986.0 [facility] Comment on above: Performed By: #### V ITAD, VITB12 #### [facility] [address] [place] [address] Dr. Aruna Lopez VITAMIN D 25 OHon 03-02-2023 VIT D 25-OH 15.6 ng/mL Normal [facility] Comment on above: Performed By: #### V ITAD, VITB12 #### [facility] [address] [place] [address] Dr. Aruna Lopez VIT D RANGES SEE BELOW Normal [facility] Comment on above: Result Comment: <20 ng/mL Vit D deficient 20 - <30 ng/mL Vit D insufficient 30 - 100 ng/mL Vit D sufficient >100 ng/mL Potential Toxicity Performed By: #### V ITAD, VITB12 #### [facility] [address] [place] [address] Dr. Aruna Lopez COVID Quick Testingon 2021 Result Negative [employer] Other Quick Strepon 09-11-2022 S. pyogenes Org specific cx Ql (Throat) Negative [employer] Other Quick Strep [employer] Other Vital Signs Date Time Vital Sign Value Performing Clinician Facility 02-08-2025 10:43-0400 Body mass index (BMI) [Ratio] 46.61 kg/m2 Sanaz HERNANDEZ Work Phone: [facility] 02-08-2025 10:43-0400 Body weight 119.35 kg Sanaz HERNANDEZ Work Phone: [facility] 02-08-2025 10:43-0400 Diastolic blood pressure 78 mm[Hg] Sanaz HERNANDEZ Work Phone: [facility] 02-08-2025 10:43-0400 Systolic blood pressure 120 mm[Hg] Sanaz Dany HERNANDEZ Work Phone: [facility] 01-28-2025 13:15-0400 Body height 157.5 cm Radha Medel GREEN INSPECTOR-TRAFFIC ADMINISTRATOR Work Phone: [facility] 01-28-2025 13:15-0400 Body mass index (BMI) [Ratio] 48.46 kg/m2 Radha Waitegan GREEN INSPECTOR-TRAFFIC ADMINISTRATOR Work Phone: [facility] 01-28-2025 13:15-0400 Body weight 120.2 kg Radha Waitegan GREEN INSPECTOR-TRAFFIC ADMINISTRATOR Work Phone: [facility] 01-28-2025 13:15-0400 Diastolic blood pressure 71 mm[Hg] Radha Waitegan GREEN INSPECTOR-TRAFFIC ADMINISTRATOR Work Phone: [facility] 01-28-2025 13:15-0400 Heart rate 107 /min Radha Medel GREEN INSPECTOR-TRAFFIC ADMINISTRATOR Work Phone: [facility] 01-28-2025 13:15-0400 Systolic blood pressure 104 mm[Hg] Radha Waitegan GREEN INSPECTOR-TRAFFIC ADMINISTRATOR Work Phone: [facility] 01-27-2025 11:17-0400 Body mass index (BMI) [Ratio] 46.48 kg/m2 Glenn Kee DO Work Phone: [facility] 01-27-2025 11:17-0400 Body weight 119.02 kg Glenn Kee DO Work Phone: [facility] 01-27-2025 11:17-0400 Diastolic blood pressure 86 mm[Hg] Glenn Kee DO Work Phone: [facility] 01-27-2025 11:17-0400 Systolic blood pressure 124 mm[Hg] Glenn Kee DO Work Phone: [facility] 01-07-2025 09:41-0500 Body mass index (BMI) [Ratio] 48.1 kg/m2 Shanell Driver RN Work Phone: [facility] 01-07-2025 09:41-0500 Body weight 119.3 kg Shanell Driver RN Work Phone: [facility] 12-31-2024 13:57-0500 Body height 157.5 cm Sakshi Morillo MD Work Phone: [facility] 12-31-2024 13:57-0500 Body mass index (BMI) [Ratio] 48.25 kg/m2 Sakshi Morillo MD Work Phone: [facility] 12-31-2024 13:57-0500 Body weight 119.66 kg Sakshi Morillo MD Work Phone: [facility] 12-31-2024 13:57-0500 Diastolic blood pressure 76 mm[Hg] Sakshi Morillo MD Work Phone: [facility] 12-31-2024 13:57-0500 Heart rate 101 /min Sakshi Morillo MD Work Phone: [facility] 12-31-2024 13:57-0500 Systolic blood pressure 123 mm[Hg] Sakshi Morillo MD Work Phone: [facility] 12-28-2024 10:24-0500 Body mass index (BMI) [Ratio] 46.79 kg/m2 Glenn Kee DO Work Phone: [facility] 12-28-2024 10:24-0500 Body weight 119.8 kg Glenn Kee DO Work Phone: [facility] 12-28-2024 10:24-0500 Diastolic blood pressure 82 mm[Hg] Glenn Kee DO Work Phone: [facility] 12-28-2024 10:24-0500 Systolic blood pressure 120 mm[Hg] Glenn Kee DO Work Phone: [facility] 10-26-2024 09:59-0500 Body mass index (BMI) [Ratio] 47.08 kg/m2 [employer] DO Work Phone: [facility] 10-26-2024 09:59-0500 Body weight 120.57 kg [employer] DO Work Phone: [facility] 10-26-2024 09:59-0500 Diastolic blood pressure 80 mm[Hg] [employer] DO Work Phone: [facility] 10-26-2024 09:59-0500 Systolic blood pressure 120 mm[Hg] Glenn Kee DO Work Phone: [facility] 09-25-2024 10:29-0500 Body mass index (BMI) [Ratio] 47.65 kg/m2 [facility] Nurse [facility] 09-25-2024 10:29-0500 Body weight 122.02 kg [facility] Nurse [facility] 09-25-2024 10:29-0500 Diastolic blood pressure 72 mm[Hg] [facility] Nurse [facility] 09-25-2024 10:29-0500 Systolic blood pressure 120 mm[Hg] [facility] Nurse [facility] 09-14-2024 10:46-0500 Body height 160.02 cm [facility] 09-14-2024 10:46-0500 Body mass index (BMI) [Ratio] 47.8 kg/m2 [facility] 09-14-2024 10:46-0500 Body temperature 95.6 [degF] [facility] 09-14-2024 10:46-0500 Body weight 122.55 kg [facility] 09-14-2024 10:46-0500 Diastolic blood pressure 84 mm[Hg] [facility] 09-14-2024 10:46-0500 Heart rate 102 /min [facility] 09-14-2024 10:46-0500 SaO2% (BldA) [Mass fraction] 96 % [facility] 09-14-2024 10:46-0500 Systolic blood pressure 128 mm[Hg] [facility] 12-05-2023 13:00-0500 Body height 160.02 cm Mirta Trujillolilo Other [facility] Other 12-05-2023 13:00-0500 Body mass index (BMI) [Ratio] 48.18 kg/m2 Mirta Paxton Other [facility] Other 12-05-2023 13:00-0500 Body weight 123.38 kg Mirta Paxton Other [facility] Other 12-05-2023 13:00-0500 Diastolic blood pressure 78 mm[Hg] Mirta Paxton Other [facility] Other 12-05-2023 13:00-0500 SaO2% (BldA) [Mass fraction] 98 % Mirta Paxton Other [facility] Other 12-05-2023 13:00-0500 Systolic blood pressure 122 mm[Hg] Mirta Paxton Other [facility] Other 11-29-2023 09:10-0500 Body height 160.02 cm Araceli Hinojosa Other [facility] Other 11-29-2023 09:10-0500 Body mass index (BMI) [Ratio] 21.93 kg/m2 Araceli Hinojosa Other [facility] Other 11-29-2023 09:10-0500 Body temperature 98.7 [degF] Araceli Hinojosa Other [facility] Other 11-29-2023 09:10-0500 Body weight 56.16 kg Araceli Hinojosa Other [facility] Other 11-29-2023 09:10-0500 Diastolic blood pressure 88 mm[Hg] Araceli Hinojosa Other [facility] Other 11-29-2023 09:10-0500 Respiratory rate 18 /min Araceli Hinojosa Other [facility] Other 11-29-2023 09:10-0500 SaO2% (BldA) [Mass fraction] 97 % Araceli Hinojosa Other [facility] Other 11-29-2023 09:10-0500 Systolic blood pressure 133 mm[Hg] Araceli Hinojosa Other [facility] Other 11-25-2023 13:00-0500 Body height 157.48 cm Mirta Matta Other [facility] Other 11-25-2023 13:00-0500 Body mass index (BMI) [Ratio] 50.29 kg/m2 Mirta Matta Other [facility] Other 11-25-2023 13:00-0500 Body weight 124.74 kg Mirta Matta Other [facility] Other 11-25-2023 13:00-0500 Diastolic blood pressure 76 mm[Hg] Mirta Matta Other [facility] Other 11-25-2023 13:00-0500 SaO2% (BldA) [Mass fraction] 98 % Mirta Matta Other [facility] Other 11-25-2023 13:00-0500 Systolic blood pressure 118 mm[Hg] Mirtaradha Matta Other [facility] Other 05-13-2023 09:15-0400 Body height 157.48 cm Janette Scally Other [facility] Other 05-13-2023 09:15-0400 Body mass index (BMI) [Ratio] 49.34 kg/m2 Janette Scally Other [facility] Other 05-13-2023 09:15-0400 Body weight 122.38 kg Janette Scally Other [facility] Other 05-13-2023 09:15-0400 Diastolic blood pressure 85 mm[Hg] Janette Scally Other [facility] Other 05-13-2023 09:15-0400 Respiratory rate 18 /min Janette Scally Other [facility] Other 05-13-2023 09:15-0400 SaO2% (BldA) [Mass fraction] 97 % Janette Scally Other [facility] Other 05-13-2023 09:15-0400 Systolic blood pressure 116 mm[Hg] Janette Scally Other [facility] Other 04-05-2023 11:15-0400 Body height 157.48 cm Janette Scally Other [facility] Other 04-05-2023 11:15-0400 Body mass index (BMI) [Ratio] 50.44 kg/m2 Janette Scally Other [facility] Other 04-05-2023 11:15-0400 Body weight 125.1 kg Janette Scally Other [facility] Other 04-05-2023 11:15-0400 Diastolic blood pressure 91 mm[Hg] Janette Scally Other [facility] Other 04-05-2023 11:15-0400 Respiratory rate 16 /min Janette Scally Other [facility] Other 04-05-2023 11:15-0400 SaO2% (BldA) [Mass fraction] 100 % Janette Scally Other [facility] Other 04-05-2023 11:15-0400 Systolic blood pressure 137 mm[Hg] Janette Scally Other [facility] Other 02-01-2023 11:15-0400 Body height 157.48 cm Janette Scally Other [facility] Other 02-01-2023 11:15-0400 Body mass index (BMI) [Ratio] 49.29 kg/m2 Janette Scally Other [facility] Other 02-01-2023 11:15-0400 Body weight 122.25 kg Janette Scally Other [facility] Other 02-01-2023 11:15-0400 Diastolic blood pressure 83 mm[Hg] Janette Scally Other [facility] Other 02-01-2023 11:15-0400 Respiratory rate 18 /min Janette Godinez Other [facility] Other 02-01-2023 11:15-0400 SaO2% (BldA) [Mass fraction] 98 % Janette Godinez Other [facility] Other 02-01-2023 11:15-0400 Systolic blood pressure 124 mm[Hg] Janette Godinez Other [facility] Other 09-11-2022 10:15-0500 Body height 157.48 cm Terri Medina Other [facility] Other 09-11-2022 10:15-0500 Body mass index (BMI) [Ratio] 47.55 kg/m2 Terri Medina Other [facility] Other 09-11-2022 10:15-0500 Body temperature 98 [degF] Terri Medina Other [facility] Other 09-11-2022 10:15-0500 Body weight 117.94 kg Terri Medina Other [facility] Other 09-11-2022 10:15-0500 Diastolic blood pressure 91 mm[Hg] Terri Medina Other [facility] Other 09-11-2022 10:15-0500 Respiratory rate 16 /min Terri Medina Other [facility] Other 09-11-2022 10:15-0500 SaO2% (BldA) [Mass fraction] 98 % Terri Medina Other [facility] Other 09-11-2022 10:15-0500 Systolic blood pressure 142 mm[Hg] Terri Medina Other [facility] Other Encounters Encounter Date Encounter Type Care Provider Facility Start: 02-22-2025 End: 02-22-2025 Bamboo flowsheet Glenn Kee DO Work Phone: [facility] Start: 02-22-2025 End: 02-22-2025 Bamboo flowsheet Glenn Kee DO Work Phone: [facility] Start: 02-15-2025 End: 02-15-2025 Clinisync Result Encounter Glenn Kee DO Work Phone: [facility] External Department Unsolicited Start: 02-15-2025 End: 02-15-2025 Clinisync Result Encounter Glenn Kee DO Work Phone: [facility] Unsolicited Start: 02-08-2025 End: 02-08-2025 Bamboo flowsheet Sanaz HERNANDEZ Work Phone: [facility] Start: 02-08-2025 End: 02-08-2025 Bamboo flowsheet Sanza HERNANDEZ Work Phone: [facility] Start: 02-08-2025 End: 02-08-2025 Clinisync Result Encounter Glenn Kee DO Work Phone: [facility] External Department Unsolicited Start: 02-08-2025 End: 02-08-2025 flow sheet Sanaz HERNANDEZ Work Phone: [facility] Comment on above: Third trimester preg alessandra; 30 weeks gestation of Start: 02-08-2025 End: 02-08-2025 ambulatory SANAZ DAVILA Not Available Start: 02-05-2025 End: 02-05-2025 Clinisync Result Encounter Glenn Kee DO Work Phone: [facility] Unsolicited Start: 02-05-2025 End: 02-05-2025 Clinisync Result Encounter Glenn Kee DO Work Phone: [facility] Department Unsolicited Start: 02-01-2025 End: 02-01-2025 Clinisync Result Encounter Glenn Kee DO Work Phone: [facility] Department Unsolicited Start: 02-01-2025 End: 02-01-2025 Clinisync Result Encounter Glenn Kee DO Work Phone: [facility] External Department Unsolicited Start: 01-28-2025 End: 01-28-2025 Office outpatient visit 25 minutes Radha Medel APRN-TRAFFIC ADMINISTRATOR Work Phone: [facility]- Medicine at [facility] Comment on above: Insulin controlled g estational diabetes mellitus (GDM) in second trimester (Primary Dx); 24 weeks gestation of Start: 01-27-2025 End: 01-27-2025 Bamboo flowsheet Glenn Kee DO Work Phone: [facility] Start: 01-27-2025 End: 01-27-2025 Bamboo flowsheet Glenn Kee DO Work Phone: [facility] Start: 01-27-2025 End: 01-27-2025 flow sheet Glenn Kee DO Work Phone: [facility] Comment on above: Third trimester preg alessandra; 28 weeks gestation of ; Gestational diabetes mellitus (GDM), antepartum, gestational diabetes method of control unspecified Start: 01-27-2025 End: 01-27-2025 ambulatory GLENN KEE Not Available Start: 01-20-2025 End: 01-20-2025 Telephone encounter Columba Smiley RN [facility] at [facility] Start: 01-19-2025 End: 01-19-2025 Orders Only Marybel Cornejo PA-C Work Phone: [facility]- [facility] at [facility] Comment on above: Insulin controlled g estational diabetes mellitus (GDM) in second trimester; 24 weeks gestation of Start: 01-14-2025 End: 01-14-2025 Orders Only Radha Medel APRN-TRAFFIC ADMINISTRATOR Work Phone: [facility]- [facility] at [facility] Start: 01-14-2025 End: 01-14-2025 Office outpatient visit 25 minutes Radha DIAZ Work Phone: [facility]- [facility] at [facility] Comment on above: Insulin controlled g estational diabetes mellitus (GDM) in second trimester; 24 weeks gestation of Start: 01-11-2025 End: 01-11-2025 ambulatory SANAZ DAVILA Not Available Start: 01-07-2025 End: 01-07-2025 ambulatory Shanell Driver RN Work Phone: [facility]- Medicine at [facility] Comment on above: Gestational diabetes mellitus (GDM) in second trimester, gestational diabetes method of control unspecified (Primary Dx) Start: 01-04-2025 End: 01-04-2025 Chart abstracting Scanning Provider External [facility] at [facility] Start: 01-01-2025 End: 01-01-2025 Orders Only Susan Duncan RN [facility]- [facility] at [facility] Comment on above: Insulin controlled g estational diabetes mellitus (GDM) in second trimester (Primary Dx) Start: 12-31-2024 End: 12-31-2024 Office consultation new/estab patient 60 min Sakshi Morillo MD Work Phone: [facility]- Medicine at [facility] Comment on above: Insulin controlled g estational diabetes mellitus (GDM) in second trimester (Primary Dx); Diet controlled gestational diabetes mellitus (GDM) in second trimester; 24 weeks gestation of ; Hyperglycemia due to diabetes mellitus ([facility]) Start: 12-31-2024 End: 12-31-2024 Chart abstracting Sakshi Morillo MD Work Phone: [facility]- Medicine at [facility] Start: 12-28-2024 End: 12-28-2024 Bamboo flowsheet Glenn Kee DO Work Phone: [facility] Start: 12-28-2024 End: 12-31-2024 Bamboo flowsheet Glenn Kee DO Work Phone: [facility] Start: 12-28-2024 End: 12-31-2024 Clinisync Result Encounter Glenn Kee DO Work Phone: [facility] External Department Unsolicited Start: 12-28-2024 End: 12-29-2024 External Result Encounter Glenn Kee DO Work Phone: [facility] External Department Unsolicited Start: 12-28-2024 End: 12-28-2024 Patient encounter procedure Glenn Kee DO Work Phone: [facility] Start: 12-28-2024 End: 12-28-2024 flow sheet Glenn Kee DO Work Phone: [facility] Comment on above: 24 weeks gestation o f ; Second trimester ; Well woman exam with routine gynecological exam; Exposure to STD; Vaginal discharge; Diabetes mellitus screening; Gestational diabetes mellitus (GDM), antepartum, gestational diabetes method of control unspecified; Elevated glucose tolerance test; Pelvic pain in female Start: 12-28-2024 End: 12-28-2024 ambulatory GLENN KEE Not Available Start: 12-10-2024 End: 12-10-2024 Chart abstracting Sakshi Morillo MD Work Phone: [facility] at [facility] Start: 11-30-2024 End: 11-30-2024 flow sheet Sanaz HERNANDEZ Work Phone: [facility] Comment on above: Second trimester pre gnancy; 20 weeks gestation of ; Insulin controlled gestational diabetes mellitus (GDM) during , antepartum; Gestational diabetes mellitus (GDM), antepartum, gestational diabetes method of control unspecified Start: 11-30-2024 End: 11-30-2024 ambulatory SANAZ DAVILA Not Available Start: 11-30-2024 End: 11-30-2024 ambulatory SAMARA BROWER Not Available Start: 11-02-2024 End: 11-02-2024 Clinisync Result Encounter Glenn Kee DO Work Phone: [facility] External Department Unsolicited Start: 11-02-2024 End: 11-02-2024 Clinisync Result Encounter Glenn Kee DO Work Phone: [facility] Unsolicited Start: 10-26-2024 End: 10-26-2024 Bamboo flowsheet Glenn Kee DO Work Phone: [facility] Start: 10-26-2024 End: 10-26-2024 Bamboo flowsheet Glenn Kee DO Work Phone: [facility] Start: 10-26-2024 End: 10-26-2024 flow sheet Glenn Kee DO Work Phone: [facility] Comment on above: 15 weeks gestation o f ; Second trimester ; Diabetes mellitus screening; Screening, , for anatomic survey Start: 10-26-2024 End: 10-26-2024 ambulatory GLENN KEE Not Available Start: 09-25-2024 End: 09-25-2024 Office outpatient visit 5 minutes [facility] K[facility] Nurse [facility] Comment on above: GA: 10w5d Start: 09-25-2024 End: 09-25-2024 ambulatory SAMARA APLING Not Available Start: 09-14-2024 End: 09-14-2024 ambulatory [facility] Work Phone: Start: 09-14-2024 End: 09-14-2024 Patient encounter procedure [facility] Physician [facility] Work Phone: Start: 04-22-2024 End: 04-22-2024 ambulatory GLENN KEE Not Available Start: 02-18-2024 End: 02-18-2024 ambulatory GLENN KEE Not Available Start: 02-12-2024 End: 02-12-2024 ambulatory SAMARA B APLING Not Available Start: 12-05-2023 End: 12-05-2023 ambulatory Mirta Matta Other [facility] Other Start: 12-05-2023 Office outpatient vi sit 15 minutes Mirta Matta [facility] Start: 12-02-2023 End: 12-02-2023 ambulatory Mirta Matta Other [facility] Other Start: 12-02-2023 Telephone encounter Mirta Alexi mcdonald [facility] Start: 11-29-2023 Office outpatient vi sit 15 minutes Araceli Hinojosa [facility] Start: 11-29-2023 End: 11-29-2023 ambulatory Araceli Hinojosa Facility:[facility] Start: 11-29-2023 End: 11-29-2023 ambulatory GREEN INSPECTOR Leticia Puentes Work Phone: [facility] Work Phone: Start: 11-29-2023 End: 11-29-2023 Patient encounter procedure GREEN INSPECTORMarco A Puentes Work Phone: [facility] Work Phone: Start: 11-25-2023 End: 11-25-2023 ambulatory Mirta Matta Other [facility] Other Start: 11-25-2023 Encounter for genera l adult medical examination without abnormal findings Mirta Matta [facility] Start: 11-25-2023 Initial preventive medicine new pt age 18-39yrs Mirta Matta [facility] Start: 08-29-2023 End: 08-30-2023 ambulatory Leticia Puentes SHADOWGRAPH SCALE OPERATOR-C Facility:[facility] Start: 06-24-2023 End: 06-24-2023 ambulatory Janette Godinez Other [facility] Other Start: 06-24-2023 Telephone encounter Janette lea [facility] Start: 05-31-2023 End: 05-31-2023 ambulatory Janette Godinez Other [facility] Other Start: 05-31-2023 Telephone encounter Janette lea [facility] Start: 05-13-2023 [facility] Weight Management f/u Janetteelena Godinez [facility] Start: 05-13-2023 End: 05-14-2023 ambulatory Leticia Puentes [facility] Other Start: 04-23-2023 End: 04-23-2023 ambulatory Janetteelena Godinez Other [facility] Other Start: 04-23-2023 Telephone encounter Janette Gretchen [facility] Start: 04-05-2023 [facility] Weight Management f/u Janette Gretchen [facility] Start: 04-05-2023 End: 04-05-2023 ambulatory Janetteelena Godinez Other [facility] Other Start: 03-04-2023 End: 03-04-2023 ambulatory Janette Bryanly Other [facility] Other Start: 03-04-2023 Telephone encounter Janetteelena Norotn located within [facility] Start: 03-02-2023 End: 03-03-2023 ambulatory JANETTE SCALLY Facility: Start: 02-01-2023 End: 02-01-2023 ambulatory Janette Gretchen Other [facility] Other Start: 02-01-2023 Nutrition therapy Janette Gretchen [facility] Start: 09-11-2022 End: 09-11-2022 ambulatory Terri Medina Other [facility] Other Start: 09-11-2022 Office outpatient vi sit 15 minutes Terri Medina [facility] Procedures Date Procedure Procedure Detail Performing Clinician Start: 02-15-2025 US OB BPP W NON-STRESS Glenn Kee DO Work Phone: Start: 02-08-2025 US OB BPP W NON-STRESS Glenn Kee DO Work Phone: Start: 02-05-2025 TBH UA (CLEAN/CATCH) FUEL DISTRIBUTION SYSTEM OPERATOR/MICRO IF IND. Glenn Kee DO Work Phone: Start: 02-01-2025 OB BPP W NON-STRESS Glenn Kee DO Work Phone: Start: 01-27-2025 Urnls dip stick/tabl et rgnt non-auto w/o micrscp Glenn Kee DO Work Phone: Start: 12-31-2024 UNLISTED LAB TEST Not I n System Ref Prov Start: 12-31-2024 End: 12-31-2024 Glucose quantitative blood xcpt reagent strip Sakshi Morillo MD Work Phone: Start: 12-28-2024 RECURRENT VAGINITIS (HTRX) Glenn Reao DO Work Phone: Start: 12-28-2024 Urnls dip stick/tabl et rgnt non-auto w/o micrscp Glennjose Reao DO Work Phone: Start: 12-28-2024 IGP,APTIMA HPV,AGE GDLN Glenn Sweet DO Work Phone: Start: 12-28-2024 Microscopic observat ion [Identifier] in Cervix by Cyto stain Radha Medel GREEN INSPECTOR-TRAFFIC ADMINISTRATOR Work Phone: Start: 11-30-2024 Urnls dip stick/tabl et rgnt non-auto w/o micrscp Sanaz HERNANDEZ Work Phone: Start: 11-02-2024 GLU 1H POST 50G LOAD No t In System Ref Prov Start: 11-02-2024 GLUCOSE 1 HOUR Glennjose corteso DO Work Phone: Start: 10-26-2024 Urnls dip stick/tabl et rgnt non-auto w/o micrscp Glenn Kee DO Work Phone: Start: 10-08-2024 Drug scrn 1+ class nonchromo Not In System Ref Prov Start: 10-08-2024 Hemoglobin glycosyla aldo a1c Scanning Provider External Start: 10-08-2024 Hepatitis c antibody No t In System Ref Prov Start: 10-08-2024 HIV 1&2 AB/AG SCREEN (P24 AG) Not In System Ref Prov Start: 10-08-2024 Iaad ia hepatitis b surface antigen Not In System Ref Prov Start: 10-08-2024 TYPE AND SCREEN Not In System Ref Prov Start: 09-25-2024 End: 09-25-2024 Urnls dip stick/tablet rgnt non-auto w/o micrscp Glenn Kee DO Work Phone: Start: 11-29-2023 Plain X-ray of left wrist GREEN INSPECTOR Leticia Puentes Work Phone: Start: 09-02-2023 Microscopic observat ion [Identifier] in Cervix by Cyto stain [facility] Plan of Treatment Date Care Activity Detail Author Start: 02-03-2032 DTaP,Tdap and Td Vaccines (7 - Td or Tdap) DTaP,Tdap and Td Vaccines (7 - Td or Tdap) [facility] Start: 09-02-2028 Screening for malign ant neoplasm of cervix [facility] Start: 12-28-2027 Screening for malign ant neoplasm of cervix Pap Smear [facility] Start: 09-02-2026 Screening for malign ant neoplasm of cervix Pap Smear [facility] Start: 01-28-2026 Adult BMI Screening Adult BMI Screen ing [facility] Start: 01-28-2026 Tobacco Screening Tobacco Screening [facility] Start: 01-07-2026 Adult BMI Screening Adult BMI Screen ing [facility] Start: 01-07-2026 Tobacco Screening Tobacco Screening [facility] Start: 01-01-2026 End: 01-01-2026 US MFM with or without consult US MFM with or without consult Imaging Routine Insulin controlled gestational diabetes mellitus (GDM) in second trimester Expected: 01/01/2026 (Approximate), Expires: 01/01/2026 [facility] Work Phone: Comment on above: Expected: 01/01/2026 (Approximate), Expires: 01/01/2026 Start: 12-31-2025 Adult BMI Screening Adult BMI Screen ing [facility] Start: 12-31-2025 Tobacco Screening Tobacco Screening [facility] Start: 07-05-2025 Influenza vaccination Influenz a Vaccine (Season Ended) [facility] Start: 02-25-2025 End: 02-25-2025 Telemedicine consultation with patient 02/25/2025 11:00 AM EDT Telemedicine [facility]- [facility] at [facility] [address] [place] [address] Radha Medel, GREEN INSPECTOR-TRAFFIC ADMINISTRATOR [address] [place] [address] [facility]- [facility] at [facility] Start: 02-22-2025 End: 02-22-2025 Patient encounter procedure [facility] Comment on above: Arrived Start: 02-11-2025 End: 02-11-2025 Telemedicine consultation with patient 02/11/2025 1:00 PM EDT Telemedicine M[facility]- Medicine at [facility] [address] [place] [address] Radha Medel, GREEN INSPECTOR-TRAFFIC ADMINISTRATOR [address] [place] [address] [facility]- Medicine at [facility] Start: 02-08-2025 End: 02-08-2025 Patient encounter procedure [facility] Comment on above: Arrived Start: 01-28-2025 End: 01-28-2025 Patient encounter procedure [facility] US Imaging Start: 01-27-2025 End: 01-27-2026 US biophysical profile w non stress test US biophysical profile w non stress test Imaging Routine Gestational diabetes mellitus (GDM), antepartum, gestational diabetes method of control unspecified Expected: 01/27/2025 (Approximate), Expires: 01/27/2026 [facility] Work Phone: Comment on above: Expected: 01/27/2025 (Approximate), Expires: 01/27/2026 Start: 01-27-2025 End: 01-27-2025 Patient encounter procedure 01/27/2025 11:20 AM EDT Routine [facility] [address] [place] [phone] Glenn Sweet DO [address] [place] [address] Arrived [facility] Comment on above: Arrived Start: 01-14-2025 End: 01-14-2025 Telemedicine consultation with patient 01/14/2025 11:30 AM EDT Telemedicine Maternal- Medicine at [facility] [address] [facility] [place] [phone] Radha Medel, ABHAY-TRAFFIC ADMINISTRATOR [address] [place] [address] [facility]- Medicine at [facility] Start: 01-11-2025 End: 01-11-2025 Patient encounter procedure 01/11/2025 8:40 AM EDT Routine [facility] [address] [place] [phone] Sanaz Davila PA [address] [place] [address] [facility] Start: 01-07-2025 End: 01-07-2025 ambulatory 01/07/2025 8:30 AM EST Support Visit M[facility]- Medicine at [facility] [address] [facility] [place] [address] Shanell Driver, RN [address] [place] [address] Janette Corral, LD [address] [facility] [place] [address] M[facility]- Medicine at [facility] Start: 12-31-2024 End: 12-31-2024 Patient encounter procedure 12/31/2024 3:30 PM EST Office Visit Maternal- Medicine at [facility] [address] [place] [address] Sakshi Morillo MD [address] [place] [place] [address] M[facility]- Medicine at [facility] Start: 12-31-2024 End: 12-31-2024 Patient encounter procedure 12/31/2024 2:15 PM EST Appointment [facility] US Imaging [address] [place] [address] [facility] US Imaging Start: 12-28-2024 End: 12-28-2025 CBC panel - Blood by Automated count CBC Lab Routine Diabetes mellitus screening Expected: 12/28/2024 (Approximate), Expires: 12/28/2025 [facility] Comment on above: Expected: 12/28/2024 (Approximate), Expires: 12/28/2025 Start: 12-28-2024 End: 12-28-2024 Patient encounter procedure [facility] Comment on above: Arrived Start: 11-30-2024 End: 11-30-2024 Patient encounter procedure 11/30/2024 9:30 AM EST Routine [facility] [address] [place] [phone] Sanaz Davila PA [address] [place] [address] [facility] Start: 11-30-2024 End: 11-30-2024 Professional / ancillary services management 11/30/2024 8:30 AM EST Ancillary Procedure [facility] [address] [place] [phone] [facility] Start: 10-26-2024 End: 12-23-2025 Measurement of glucose 1 hour after glucose challenge for glucose tolerance test Glucose tolerance, 1 hour Lab Routine 15 weeks gestation of Second trimester Diabetes mellitus screening Expected: 10/26/2024 (Approximate), Expires: 10/26/2025 [facility] Work Phone: Comment on above: Expected: 10/26/2024 (Approximate), Expires: 10/26/2025 Start: 10-26-2024 End: 10-26-2025 US for US OB ANATOMY SINGLE W US OB CERVICAL LENGTH Imaging Routine 15 weeks gestation of Second trimester Screening, , for anatomic survey Expected: 10/26/2024 (Approximate), Expires: 10/26/2025 [facility] Comment on above: Expected: 10/26/2024 (Approximate), Expires: 10/26/2025 Start: 10-26-2024 End: 10-26-2024 Patient encounter procedure [facility] Comment on above: 15 weeks gestation o f ; Second trimester Start: 09-25-2024 End: 09-25-2025 ABO/Rh ABO/Rh Lab Routine Missed menses , unspecified gestational age Expected: 09/25/2024 (Approximate), Expires: 09/25/2025 [facility] Comment on above: Expected: 09/25/2024 (Approximate), Expires: 09/25/2025 Start: 09-25-2024 End: 09-25-2025 Blood type and Indirect antibody screen panel - Blood Type and screen Lab Routine Missed menses , unspecified gestational age Expected: 09/25/2024 (Approximate), Expires: 09/25/2025 [facility] Work Phone: Comment on above: Expected: 09/25/2024 (Approximate), Expires: 09/25/2025 Start: 09-25-2024 End: 09-25-2025 Drugs of abuse panel - Urine by Screen method Rapid drug screen, urine Lab Routine , unspecified gestational age Encounter for supervision of normal first in first trimester Expected: 09/25/2024 (Approximate), Expires: 09/25/2025 [facility] Comment on above: Expected: 09/25/2024 (Approximate), Expires: 09/25/2025 Start: 09-25-2024 End: 09-25-2025 US Pelvis transvaginal US OB transvaginal Imaging Routine Missed menses Expected: 09/25/2024 (Approximate), Expires: 09/25/2025 [facility] Comment on above: Expected: 09/25/2024 (Approximate), Expires: 09/25/2025 Start: 07-05-2024 COVID-19 Vaccine () COVID-19 Vaccine () [facility] Start: 07-05-2024 Influenza vaccination [facility] Start: 2013 Screening for malign ant neoplasm of cervix Pap Smear [facility] Start: 2011 DTaP,Tdap and Td Vaccines (1 - Tdap) DTaP,Tdap and Td Vaccines ( - Tdap) [facility] Start: 2010 Adult BMI Follow Up Plan Adult BMI Follow Up Plan [facility] Start: 2010 Adult BMI Screening Adult BMI Screen ing [facility] Start: 2004 Depression Screening Depression Scre ening [facility] Start: 2004 Tobacco Screening Tobacco Screening [facility] Bacteria identified in Urine by Culture Urine culture Microbiology Routine Missed menses Ordered: 09/25/2024 [facility] Comment on above: Ordered: 09/25/2024 CBC W Auto Different ial panel - Blood CBC and differential Lab Routine Missed menses , unspecified gestational age Ordered: 09/25/2024 [facility] Comment on above: Ordered: 09/25/2024 CHLAMYDIA TRACHOMATI S (GENITO/STI) CHLAMYDIA TRACHOMATIS (GENITO/STI) Lab Routine Exposure to STD Ordered: 12/28/2024 [facility] Comment on above: Ordered: 12/28/2024 Cytology Cervical or vaginal smear or scraping study Pap Smear Pathology and Cytology Routine Well woman exam with routine gynecological exam Ordered: 12/28/2024 [facility] Comment on above: Ordered: 12/28/2024 Hemoglobin A1c/Hemoglobin.total in Blood Hemoglobin A1c Lab [facility] Comment on above: Ordered: 09/25/2024 Human papilloma viru s DNA [Presence] in Unspecified specimen by Probe with amplification HPV DNA probe, amplified Microbiology Routine Well woman exam with routine gynecological exam Ordered: 12/28/2024 [facility] Comment on above: Ordered: 12/28/2024 Neisseria gonorrhoea e DNA [Presence] in Unspecified specimen by CHERRI with probe detection Neisseria gonorrhea DNA probe, direct Lab Routine Exposure to STD Ordered: 12/28/2024 [facility] Comment on above: Ordered: 12/28/2024 Reagin Ab [Presence] in Serum by RPR RPR Lab Routine Missed menses , unspecified gestational age Ordered: 09/25/2024 [facility] Comment on above: Ordered: 09/25/2024 Rubella antibody, IgG Rubella an tibody, IgG Lab Routine Missed menses , unspecified gestational age Ordered: 09/25/2024 [facility] Comment on above: Ordered: 09/25/2024 SURESWAB(R) ADVANCED VAGINITIS PLUS, TMA SURESWAB(R) ADVANCED VAGINITIS PLUS, TMA Pathology and Cytology Routine Vaginal discharge Ordered: 12/28/2024 [facility] Work Phone: Comment on above: Ordered: 12/28/2024 US Lower extremity v ein - [facility] Payers Date Payer Category Payer Self-pay 2022 Private Health Insurance [employer] [id number] 2021 Managed Care Other (unspecified) [id number] 1992 Unknown [id number] 2.16.840.1.915300.3.579.2. 593 1992 Unknown [id number] 2.16.840.1.589761.3.579.2. 718 1992 Unknown [id number] 2.16.840.1.817166.3.579.2. 1258 1992 Unknown [id number] 2.16.840.1.267239.3.579.2. 1258 1992 Unknown [id number] 2.16.840.1.124738.3.579.2. 1258 1992 Unknown [id number] 2.16.840.1.170546.3.579.2. 1258 1992 Unknown [id number] 2.16.840.1.269125.3.579.2. 1258 1992 Unknown [id number] 2.16.840.1.308737.3.579.2. 1258 1992 Unknown [id number] 2.16.840.1.394725.3.579.2. 1258 1992 Unknown [id number] 2.16.840.1.593654.3.579.2. 1258 1992 Unknown [id number] 2.16.840.1.621806.3.579.2. 1259 1992 Unknown [id number] 2.16.840.1.292364.3.579.2. 1259 1992 Unknown [id number] 2.16.840.1.060166.3.579.2. 1259 1959 Unknown [id number] 2.16840.1.282752.19 Unknown [id number] 2.840.1.647511.19 Unknown [id number] 2.16840.1.719678.19 Unknown [id number] 2.16.840.1.546992.3.579.2. 531 Unknown [id number] 2.840.1.485401.3.579.2. 531 Social History Date Type Detail Facility Start: 02-12-2024 End: 12-31-2024 Sex Assigned At [facility] yste Start: 1990 Sex Assigned At Female F [facility] Tobacco smoking stat us [facility] Unknown if ever smoked [facility] Work Phone: Start: 06-07-2015 End: 09-14-2024 Sex Female (finding) [facility] Start: 12-02-2023 End: 12-10-2024 Tobacco smoking status [facility] Never smoked tobacco [facility] Start: 12-02-2023 End: 12-10-2024 Tobacco use and exposure Smokeless tobacco non-user [facility] Start: 09-25-2024 End: 02-08-2025 Alcoholic beverage intake Current drinker of alcohol (finding) [facility] Start: 02-12-2024 End: 12-31-2024 History of Social function [facility] Start: 07-26-2024 [facility]care Start: 1990 Sex assigned at Not on file [facility] Start: 12-10-2024 End: 01-28-2025 Alcoholic beverage intake Ex-drinker (finding) [facility] Childcare Unknown [facility] Start: 12-29-2024 Gender identity Identifies as female gender (finding) [facility] Medical Equipment Procedure Code Equipment Code Equipment Origin al Text Equipment Identifier Dates [id number], [id number], [id number] Start: 04-05-2023 End: 03-10-2025 1 each by in vit ro route once daily. Use to check FSBS four times daily Goals Date Patient Goal Desired Activity /State Personal health goal Clinical Notes 09-11-2022 to 02-08-2025 Sanaz Davila, DAVID - 02/08/2025 10:20 AM Harmeet Anna CMA - 01/28/2025 2:00 PM EMILY Tolentino - 01/28/2025 2:00 PM Vinay Love LPN - 01/27/2025 11:20 AM EDT Note Date & Type Note Facility 02-08-2025 History of Present illness Narrative Reason for Appointment: Patient ID: Sandra Spence is a 34 y.o. female who presents for Routine Visit Patient presents today for Return OB appointment. MEDICATIONS Current Outpatient Medications Medication Instructions Alcohol Swabs (Alcohol Prep Pad) 70 % pads 1 Pad, Topical, Daily, Use four times daily to check FSBS. aspirin 81 mg, Oral, Daily Blood Glucose Monitoring Suppl (D-Care Glucometer) w/Device kit 1 kit, Does not apply, Daily, Use four times daily to check FSBS. In the morning prior to breakfast & 1 hour after each meal for a total of 4times daily. insulin aspart FlexPen (NOVOLOG) 10 Units, 3 times daily with meals insulin pen needle 29G x 8mm misc 1 each, Subcutaneous, Daily Lantus SoloStar 16 Units, Subcutaneous, Nightly, FILL ACCORDING TO INSURANCE COVERAGE magnesium oxide (MAG-OX) 400 mg, Oral, Daily multivitamin () 27-0.8 MG tablet 1 tablet, Daily ondansetron (ZOFRAN) 4 mg, Every 8 hours PRN ALLERGIES No Known Allergies PROBLEMS Active Ambulatory Problems Diagnosis Date Noted 15 weeks gestation of 10/26/2024 Second trimester 10/26/2024 Pelvic pain in female 12/28/2024 Resolved Ambulatory Problems Diagnosis Date Noted No Resolved Ambulatory Problems Past Medical History: Diagnosis Date Depression with anxiety Wrist fracture 2013 HISTORY PAST MEDICAL HISTORY SOCIAL HISTORY Past [...] reviewed. Vitals: Estimated body mass index is 46.61 kg/m as calculated from the following: Height as of 04/22/24: 5' 3 . Weight as of this encounter: 263 lb 1.9 oz. BP: 120/78 Patient's last menstrual period was 07/12/2024. ASSESSMENT & PLAN ICD-10-CM 1. Third trimester Z34.93 2. 30 weeks gestation of Z3A.30 Return OB: Patient presents today for a routine obstetrics appointment. Patient is currently 30w1d . Patient states she is doing well but has complaints of being tired due to current . Patient has verbalizes frequent movement. labor precautions was discussed/given and patient was instructed to perform kick counts three times a day. Patient states she is doing better with insulin and sugars are regulating. MFM following sugars. Pt is ordering a new belly band to help with cramping and side pain. We also discussed remaining off of work for duration No orders of the defined types were placed in this encounter. Follow Up: Patient is to return to office in 2 week for routine OB appointment. Documented by DAVID Mahoney on behalf of: DAVID Mahoney documented in this encounter [facility] 01-28-2025 History of Present illness Narrative Headache/epigastric pain/blurry vision/swelling? no Cramping/contractions? Patient states she's felt a couple jenny hussein contractions. Abnormal vaginal discharge? no Spotting or vaginal bleeding? no Loss or gush of fluid like your water may have broken? no Recent ER visits or hospitalizations? no Any concerns that you would like me to mention to the provider today? no REASON FOR OFFICE VISIT: Video Visit via Real-time Synchronous Audiovisual Provider Location: [facility] AT [address] [id number] Patient Location: Patient's home Video Visit Consent Statement: I discussed risks, benefits, and alternatives of a real-time synchronous audiovisual consultation with the patient (and any accompanying persons) including the risks that the patient's personal health details and medical records will be discussed over real-time, synchronous, interactive video/audio/telecommunication technology, the visit will not be recorded without the express consent of both the provider and the patient, and that there are some limitations compared to [id number] evaluations. The patient consented to the presence of additional virtual and/or in-person participants. We elected to proceed. 1. GDMA2; A1c 5.8% on 12/31/24 2. Hx PCOS since 2023; had tried Metfromin and discontinued prior to due to GI side effects 3. BMI 48.46 HISTORY OF PRESENT ILLNESS: Sandra Spence is a pleasant 34 y.o. at 28w4d due on Estimated Date of Delivery: 04/18/25. Currently the patient has no complaints. The patient denies JOAQUIN, nausea, vomiting, abdominal pain, vaginal bleeding, contractions, leaking fluid or chest pain. +FM. She is being followed at [facility] due to GDMA2. States she is following meal plan as much as possible and eating evening snack. FBS - 100-148 1 HR Postprandial - 102-230 Past Medical History PAST OBSTETRICAL HISTORY: OB History 1 Para Term AB Living SAB IAB Ectopic Multiple Live Births SURGICAL HISTORY: Past Surgical History: Procedure Laterality Date PLANTAR'S WART EXCISION RT foot WISDOM TOOTH EXTRACTION ALLERGIES: No Known Allergies CURRENT MEDICATIONS: Current Outpatient Medications: acetaminophen (TYLENOL) 325 mg tablet, Take 2 tablets (650 mg total) by mouth every 6 (six) hours as needed for pain or headaches. States takes 1-2 tablets as needed, Disp: , Rfl: aspirin 81 mg, Take 1 tablet (81 mg total) by mouth in the morning., Disp: , Rfl: insulin aspart U-100 (NovoLOG) 100 unit/mL (3 mL) insulin pen, Prime with 2 units then inject 18 units before breakfast, 19 units before lunch, 20 units before dinner, Disp: 15 mL, Rfl: 3 insulin glargine (LANTUS SOLOSTAR U-100 INSULIN) 100 unit/mL (3 mL) insulin pen, Inject 24 units in the morning and 32 units in the evening, subcutaneously in abdomen, prime 2 units, Disp: 15 mL, Rfl: 4 ondansetron (ZOFRAN) 4 mg tablet, Take 1 tablet (4 mg total) by mouth every 8 (eight) hours as needed for nausea or vomiting., Disp: , Rfl: ek114-oorm-evfzl acid ( MULTI) 27-800 mg-mcg tablet, Take 1 capsule by mouth once daily., Disp: , Rfl: blood sugar diagnostic (glucose blood) strip, 1 strip by other route as needed (Use in morning prior to breakfast, 1 hour after each meal for a total of 4 times daily)., Disp: , Rfl: blood-glucose meter (BLOOD GLUCOSE MONITORING) kit, 1 each by other route once daily. Use four times daily to check FSBS. In the morning prior to breakfast and 1 hour after each meal, Disp: , Rfl: isopropyl alcohol-benzocaine (ALCOHOL-BENZOCAINE) 70-6 % pads, medicated, Apply 1 each topically as needed (Use four times daily to check FSBS)., Disp: , Rfl: LANCETS,ULTRA THIN MISC, 1 each by in vitro route once daily. Use to check FSBS four times daily, Disp: , Rfl: LABS: Lab Results Component Value Date LDLCALC 158 (H) 10/10/2021 CREATININE 0.77 10/10/2021 No results found for: TSH , T3 , TOTALT4 , THYROIDAB No results found for: [id number] Lab Results Component Value Date CREATININE 0.77 10/10/2021 BUN 10 10/10/2021 K 4.3 10/10/2021 CL 103 10/10/2021 CO2 29 10/10/2021 Lab Results Component Value Date ALT 7 10/10/2021 AST 17 10/10/2021 ALKPHOS 97 10/10/2021 Lab Results Component Value Date HGBA1C 5.6 10/08/2024 REVIEW OF SYSTEMS: Head and Neck: Negative for any dizziness and headaches. Cardiovascular and Respiratory System: Denies any chest pain, shortness of breath, and coughing. Abdominal and System: Denies any abdominal pain, nausea, vomiting, vaginal bleeding, and vaginal discharge PHYSICAL EXAMINATION: BP 104/71 (BP Site: Right Arm, BP Postition: Sitting) Comment (BP CUFF SIZE): Adult 12 Maroon Pulse 107 Ht 157.5 cm (5' 2.01 ) Wt 120.2 kg (265 lb) LMP 07/12/2024 BMI 48.46 kg/m and heart rate present. See full USN report. Gravid abdomen, Alert & Oriented. Respirations not labored. DISCUSSION: Glucose levels elevated - NPH added to help target fasting glucose levels that are elevated despite what combination of nutrients and timing patient adjusts her diet to Recommended carbohydrate allocation ranges: 30-45 g for breakfast, 45-60 g for lunch and dinner, and 15-g snacks roughly 2-3 hours after each meal. A1c less than 6% has the lowest risk for LGA Pre-E s/s reviewed: BP >160/110, epigastric or RUQ ABD pain unresponsive to analgesics, neurological symptoms:vision changes, floaters, severe headache not relieved with medication, or fluid changes: reduced voids, swelling in hands, face or pitting edema encroaching up the shins, weight gain >4lbs in 1 week FKCs encouraged SUMMARY/RECOMMENDATION: The following is a summary of our recommendations: 1. Blood work: Per primary Ob in the presence of concerning s/s 2. Medication: NPH added at 8 units 12 hrs before fasting glucose time Novolog increased to 20 before lunch and 24 before dinner Lantus increased to 30 and 36 3. testing: NST/DVP weekly at 28 weeks Twice weekly NSTw/ weekly DVP at 36 weeks growth ultrasounds every 4 weeks starting at 28 weeks 4. Delivery timing: Consider planned delivery btw 39/0-39/6 weeks or before if indicated Use 1/2 dose of insulin the night before her planned delivery. GDMA2:may monitor patient's BG every 4hrs during latent labor, every 1 hr during active labor with goal BG to be less than 140mg/dl. Can use insulin sliding scale prn hyperglycemia. No need for insulin use the day of her delivery 5. Post : As she has only gestational diabetes, there is no need for glucose testing or medication after her delivery. Please obtain a 2-hour GTT directly while still hospitalized after delivery or 4-12 weeks out patient and then A1c yearly as the patient has a 20% risk of having or developing diabetes later on. 6. Follow-up appointment: In 4 weeks to Maternal- Medicine. I asked her to keep sending values to us weekly by e-mail to: [email or web address] or by fax to: [phone] TIME OF CONSULTATION: 20 minutes with the patient, >50% in discussion and counseling, coordination of care which was [id number], review of records and communication back to referring provider. EMILY Oneill 01/28/25 [id number] documented in this encounter [facility] 01-27-2025 History of Present illness Narrative Reason for Appointment: Patient ID: Sandra Spence is a 34 y.o. female who presents for Routine Visit Patient presents today for Return OB appointment. MEDICATIONS Current Outpatient Medications Medication Instructions Alcohol Swabs (Alcohol Prep Pad) 70 % pads 1 Pad, Topical, Daily, Use four times daily to check FSBS. aspirin 81 mg, Oral, Daily Blood Glucose Monitoring Suppl (D-Care Glucometer) w/Device kit 1 kit, Does not apply, Daily, Use four times daily to check FSBS. In the morning prior to breakfast & 1 hour after each meal for a total of 4times daily. insulin aspart FlexPen (NOVOLOG) 10 Units, 3 times daily with meals insulin pen needle 29G x 8mm misc 1 each, Subcutaneous, Daily Lantus SoloStar 16 Units, Subcutaneous, Nightly, FILL ACCORDING TO INSURANCE COVERAGE magnesium oxide (MAG-OX) 400 mg, Oral, Daily multivitamin () 27-0.8 MG tablet 1 tablet, Daily ondansetron (ZOFRAN) 4 mg, Every 8 hours PRN ALLERGIES No Known Allergies PROBLEMS Active Ambulatory Problems Diagnosis Date Noted 15 weeks gestation of 10/26/2024 Second trimester 10/26/2024 Pelvic pain in female 12/28/2024 Resolved Ambulatory Problems Diagnosis Date Noted No Resolved Ambulatory Problems Past Medical History: Diagnosis Date Depression with anxiety Wrist fracture 2013 HISTORY PAST MEDICAL HISTORY SOCIAL HISTORY Past [...] nursing note reviewed. Exam conducted with a pump and still operator present. Vitals: Estimated body mass index is 46.48 kg/m as calculated from the following: Height as of 04/22/24: 5' 3 . Weight as of this encounter: 262 lb 6.4 oz. BP: 124/86 Patient's last menstrual period was 07/12/2024. ASSESSMENT & PLAN ICD-10-CM 1. Third trimester Z34.93 POCT urinalysis dipstick manually resulted 2. 28 weeks gestation of Z3A.28 3. Gestational diabetes mellitus (GDM), antepartum, gestational diabetes method of control unspecified O24.419 US biophysical profile w non stress test Return OB: Patient presents today for a routine obstetrics appointment. Patient is currently 28w3d . Patient states she is doing well but has complaints of being tired due to current . Patient has verbalizes frequent movement. labor precautions was discussed/given and patient was instructed to perform kick counts three times a day. Pt has pelvic pain and pressure discussed hormone relaxin and belly band. Orders Placed This Encounter Procedures US biophysical profile w non stress test POCT urinalysis dipstick manually resulted Follow Up: Patient is to return to office in 2 week for routine OB appointment. Documented by Lisa Love LPN on behalf of: Glenn Sweet DO documented in this encounter [facility] 01-20-2025 Miscellaneous Notes Called pt to discuss her insulin changes. Marybel Cornejo reviewed her blood sugars and would like her to increase her lantus in the evening to 32 units. She would also like her to increase her before breakfast novolog to 18 units, increase her before lunch novolog to 19 units, and increase her before supper novlog to 20 units. Pt verbalized understanding and will start at her next dose. She will send in new blood sugars next week. [facility] Telephone encounter Note Called pt to discuss her insulin changes. Marybel Cornejo reviewed her blood sugars and would like her to increase her lantus in the evening to 32 units. She would also like her to increase her before breakfast novolog to 18 units, increase her before lunch novolog to 19 units, and increase her before supper novlog to 20 units. Pt verbalized understanding and will start at her next dose. She will send in new blood sugars next week. [facility] 01-14-2025 History of Present illness Narrative REASON FOR OFFICE VISIT: Video Visit via Real-time Synchronous Audiovisual Provider Location: [facility] AT [address] [id number] Patient Location: Patient's home Video Visit Consent Statement: I discussed risks, benefits, and alternatives of a real-time synchronous audiovisual consultation with the patient (and any accompanying persons) including the risks that the patient's personal health details and medical records will be discussed over real-time, synchronous, interactive video/audio/telecommunication technology, the visit will not be recorded without the express consent of both the provider and the patient, and that there are some limitations compared to [id number] evaluations. The patient consented to the presence of additional virtual and/or in-person participants. We elected to proceed. 1. GDMA2; A1c 5.8% on 12/31/24 2. Hx PCOS since 2023; had tried Metfromin and discontinued prior to due to GI side effects HISTORY OF PRESENT ILLNESS: Sandra Spence is a pleasant 34 y.o. at 26w4d due on Estimated Date of Delivery: 04/18/25. Currently the patient has no complaints. The patient denies JOAQUIN, nausea, vomiting, abdominal pain, vaginal bleeding, contractions, leaking fluid or chest pain. Endorses movement. She is being followed at [facility] due to GDMA2. States she is following meal plan as much as possible and eating evening snack. FBS - 102-142 1 HR Postprandial - 129-290 Past Medical History PAST OBSTETRICAL HISTORY: OB History 1 Para Term AB Living SAB IAB Ectopic Multiple Live Births SURGICAL HISTORY: Past Surgical History: Procedure Laterality Date PLANTAR'S WART EXCISION RT foot WISDOM TOOTH EXTRACTION ALLERGIES: No Known Allergies CURRENT MEDICATIONS: Current Outpatient Medications: acetaminophen (TYLENOL) 325 mg tablet, Take 2 tablets (650 mg total) by mouth every 6 (six) hours as needed for pain or headaches. States takes 1-2 tablets as needed, Disp: , Rfl: aspirin 81 mg, Take 1 tablet (81 mg total) by mouth in the morning., Disp: , Rfl: blood sugar diagnostic (glucose blood) strip, 1 strip by other route as needed (Use in morning prior to breakfast, 1 hour after each meal for a total of 4 times daily)., Disp: , Rfl: blood-glucose meter (BLOOD GLUCOSE MONITORING) kit, 1 each by other route once daily. Use four times daily to check FSBS. In the morning prior to breakfast and 1 hour after each meal, Disp: , Rfl: insulin aspart U-100 (NovoLOG) 100 unit/mL injection, Inject 10 units with breakfast, lunch, dinner, subcutaneously in abdomen, prime 2 units (Patient taking differently: Inject 10 units with breakfast, lunch, dinner, subcutaneously in abdomen, prime 2 units Stated taking twice daily because only eating 2 meals adaily), Disp: 10 mL, Rfl: 11 insulin glargine (LANTUS SOLOSTAR U-100 INSULIN) 100 unit/mL (3 mL) insulin pen, Inject 12 units in the morning and 24 units in the evening, subcutaneously in abdomen, prime 2 units (Patient taking differently: Inject 12 units in the morning and 24 units in the evening, subcutaneously in abdomen, prime 2 units Stated 16 Units in the morning and 16 Units in the evening daily), Disp: 15 mL, Rfl: 4 isopropyl alcohol-benzocaine (ALCOHOL-BENZOCAINE) 70-6 % pads, medicated, Apply 1 each topically as needed (Use four times daily to check FSBS)., Disp: , Rfl: LANCETS,ULTRA THIN MISC, 1 each by in vitro route once daily. Use to check FSBS four times daily, Disp: , Rfl: ondansetron (ZOFRAN) 4 mg tablet, Take 1 tablet (4 mg total) by mouth every 8 (eight) hours as needed for nausea or vomiting., Disp: , Rfl: [id number] acid ( MULTI) 27-800 mg-mcg tablet, Take 1 capsule by mouth once daily., Disp: , Rfl: LABS: Lab Results Component Value Date LDLCALC 158 (H) 10/10/2021 CREATININE 0.77 10/10/2021 No results found for: TSH , T3 , TOTALT4 , THYROIDAB No results found for: [id number] Lab Results Component Value Date CREATININE 0.77 10/10/2021 BUN 10 10/10/2021 K 4.3 10/10/2021 CL 103 10/10/2021 CO2 29 10/10/2021 Lab Results Component Value Date ALT 7 10/10/2021 AST 17 10/10/2021 ALKPHOS 97 10/10/2021 Lab Results Component Value Date HGBA1C 5.6 10/08/2024 REVIEW OF SYSTEMS: Head and Neck: Negative for any dizziness and headaches. Cardiovascular and Respiratory System: Denies any chest pain, shortness of breath, and coughing. Abdominal and System: Denies any abdominal pain, nausea, vomiting, vaginal bleeding, and vaginal discharge PHYSICAL EXAMINATION: LMP 07/12/2024 Gravid abdomen, Alert & Oriented. Respirations not labored. DISCUSSION: We reviewed logs and weight based calculated dosing Importance of good blood sugar control was emphasized. The potential effects of uncontrolled diabetes before and during on herself were discussed including: preeclampsia, induced hypertension, labor, , and polyhydramnios. Potential effects on baby were explained: stillbirth, miscarriage, macrosomia, jaundice, trauma, hypoglycemia, respiratory distress and hypocalcemia. Insulin-dependent diabetes mellitus and its effect on was reviewed. This means there is an insulin deficiency requiring exogenous insulin to keep a euglycemic state. causes hyperglycemia in various ways. Placental hormones: human placental lactogen and TNF alpha can eventually hasten insulin resistance and hyperglycemia. Risks were reviewed to including: spontaneous loss, congenital malformations with HgA1c results .8.5 at time of conception and altered growth. High HbA1c is associated with increased risk of neural tube defects. 1st trimester screen is an ideal risk assessment tool to identify for congenital heart defects as well as aneuploidy around 12 wks' gestation followed by the maternal serum AFP in the 2nd trimester and then the 20-week anatomic survey. Maternal hyperglycemia results in hyperglycemia causing adverse growth and development. Macrosomia and excess fat deposits in the fetus lead to excess insulin being released from the pancreas. Relative oxygen deficiency can cause polycythemia leading to slugging in small capillaries which if happens in the brain may cause seizures. Hyperbilirubinemia may also result due to rapid destruction of surplus red blood cells after the infant has been delivered. Achieving a euglycemic state is the best preventative strategy. This can be done through close contact with MFM diabetic: via weekly glucose review either by Logs or CGM. Baseline urine protein creatinine ratio along with preeclampsia labs are recommended in early in (ideally 1st trimester) to help detect a diagnosis of pre-eclampsia. Pre-existing diabetic patients are at increased risk for developing hypertensive disorders of including preeclampsia. testing is also initiated around 32 wks due to the increased risk of still . Generally after 39 weeks gestation, we prefer to have a planned delivery in view of increased risk of demise. Earlier delivery may be necessitated due to a diagnosis of maternal preeclampsia, for which the risk of which is elevated in diabetic pregnancies. Also, if the is large, which can still happen despite good glycemic control, there is an increased risk of maternal and trauma. This is defined as EFW greater than 4500 gm. An elective delivery can be offered when the EFW is > 4500 gm at term to reduce the risk of shoulder dystocia. Long-term risk to offspring from poor maternal glycemic control include: obesity, cardiovascular disease, impaired glucose tolerance and Type 2 diabetes were reviewed. Recommended carbohydrate allocation ranges: 30-45 g for breakfast, 45-60 g for lunch and dinner, and 15-g snacks roughly 2-3 hours after each meal. A1c less than 6% has the lowest risk for LGA infant Pre-E s/s reviewed: BP >160/110, epigastric or RUQ ABD pain unresponsive to analgesics, neurological symptoms:vision changes, floaters, severe headache not relieved with medication, or fluid changes: reduced voids, swelling in hands, face or pitting edema encroaching up the shins, weight gain >4lbs in 1 week SUMMARY/RECOMMENDATION: The following is a summary of our recommendations: 1. Blood work: Per primary Ob provider in the presence of concerning s/s CMP Urine P/C ratio Thyroid Profile 2. Medication: Lantus increased to 24 units in am Novolog increased to 16 units before each meal Other medications as above 3. testing: NST/DVP weekly at 32 weeks Twice weekly NSTw/ weekly DVP at 36 weeks growth ultrasounds every 4 weeks starting at 28 weeks 4. Delivery timing: Consider planned delivery btw 39/0-39/6 weeks or before if indicated Use 1/2 dose of insulin the night before her planned delivery. GDMA2:may monitor patient's BG every 4hrs during latent labor, every 1 hr during active labor with goal BG to be less than 140mg/dl. Can use insulin sliding scale prn hyperglycemia. No need for insulin use the day of her delivery 5. Post : As she has only gestational diabetes, there is no need for glucose testing or medication after her delivery. Please obtain a 2-hour GTT directly while still hospitalized after delivery or 4-12 weeks out patient and then A1c yearly as the patient has a 20% risk of having or developing diabetes later on. 6. Follow-up appointment: In 4 weeks to Maternal- Medicine. I asked her to keep sending values to us weekly by e-mail to: [email or web address] or by fax to: [phone] TIME OF CONSULTATION: 20 minutes with the patient, >50% in discussion and counseling, coordination of care which was [id number], review of records and communication back to referring provider. EMILY Oneill 01/14/25 1149 documented in this encounter [facility] 01-07-2025 History of Present illness Narrative DIABETES AND ASSESSMENT Type of diabetes: Gestational Diabetes Age at onset: 34 Duration: this Still : OB History Para Term AB Living 1 0 0 0 0 0 SAB IAB Ectopic Multiple Live Births 0 0 0 0 0 Patient's last menstrual period was 07/12/2024. 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 Tomer Sweet Name: Mirta Matta APRN-DANNY Name: City: City: City: Last time seen: 01/04/25 Last time seen: 09/2024 Last time seen: Eye Doctor Dentist Other Doctors Name: Name: Name: City: City: City: Last time seen: Last time seen: Last time seen: OB History Para Term AB Living 1 SAB IAB Ectopic Multiple Live Births # Outcome Date GA Lbr Agustín/2nd Weight Sex Type Anes PTL Lv 1 Current No Known Allergies Current Outpatient Medications Medication Sig Dispense Refill blood sugar diagnostic (glucose blood) strip 1 strip by other route as needed (Use in morning prior to breakfast, 1 hour after each meal for a total of 4 times daily). blood-glucose meter (BLOOD GLUCOSE MONITORING) kit 1 each by other route once daily. Use four times daily to check FSBS. In the morning prior to breakfast and 1 hour after each meal insulin aspart U-100 (NovoLOG) 100 unit/mL injection Inject 10 units with breakfast, lunch, dinner, subcutaneously in abdomen, prime 2 units 10 mL 11 insulin glargine (LANTUS SOLOSTAR U-100 INSULIN) 100 unit/mL (3 mL) insulin pen Inject 12 units in the morning and 24 units in the evening, subcutaneously in abdomen, prime 2 units 15 mL 4 isopropyl alcohol-benzocaine (ALCOHOL-BENZOCAINE) 70-6 % pads, medicated Apply 1 each topically as needed (Use four times daily to check FSBS). LANCETS,ULTRA THIN MISC 1 each by in vitro route once daily. Use to check FSBS four times daily metFORMIN XR (GLUCOPHAGE XR) 500 mg 24 hr tablet Take 1 tablet (500 mg total) by mouth daily with breakfast. (Patient not taking: Reported on 12/31/2024) ondansetron (ZOFRAN) 4 mg tablet Take 1 tablet (4 mg total) by mouth every 8 (eight) hours as needed for nausea or vomiting. (Patient not taking: Reported on 12/31/2024) [id number] acid ( MULTI) 27-800 mg-mcg tablet Take 1 capsule by mouth once daily. No current facility-administered medications for this visit. Previous Hospitalizations None Past Surgical History: Procedure Laterality Date PLANTAR'S WART EXCISION RT foot WISDOM TOOTH EXTRACTION Personal diabetes history: Gestational Diabetes Unanswered Diabetes mellitus Unanswered Family History of diabetes: pertinent family history includes Diabetes in her maternal grandmother. ROS: Constitutional: No problems Head and Neck: Wears glasses or contact lens Lungs and breathing: No problems Heart:: High cholesterol Blood disorders and other conditions: No problems Mental health: Depression/anxiety Kidney, Bladder, and Sexual History: No problems Circulation and Nerves: Varicose veins Endocrine and Diabetes Conditions: Insulin resistance, Thyroid conditions, and Polycystic ovarian syndrome (PCOS) Stomach and Intestines: Nausea/vomiting, Constipation, Change in bowel movements, and Abdominal pain Educational Level: Preferred Methods for Learning: Listening/Verbal directions and Hands on demonstration Is there anything about your culture, shinto, or personal beliefs we need to know about to care for you: Other None; trying to eat healthier Primary Language spoken: Montserratian [22] Primary Language for learning: Montserratian Are you currently in a relationship where you are physically hurt, threatened or made to fee afraid? [] Yes [x] No Web Interface Developer needed? [] Yes [] No Marital status/Living arrangements [x] [] Single [] Partner [] Father of baby [] Friend [] Parent(s) [] Other family member [] Self Social History Social History Socioeconomic History Marital status: Spouse name: Not on file Number of children: Not on file Years of education: Not on file Highest education level: Not on file Occupational History Not on file Tobacco Use Smoking status: Never Smokeless tobacco: Never Substance and Sexual Activity Alcohol use: Not Currently Drug use: Never Sexual activity: Yes Other Topics Concern Not on file Social History Narrative Not on file Social Drivers of Health Financial Resource Strain: Not on file Food Insecurity: No Food Insecurity (12/31/2024) Hunger Screening Food Insecurity - Worry: Never True Food Insecurity - Inability: Never True Transportation Needs: Not on file Physical Activity: Not on file Stress: Not on file Social Connections: Not on file Interpersonal Safety: Not on file Housing Instability: Not on file Eating Schedule - What time do you: See Schedule Work day Day off Other (including weekends) Start your day Eat breakfast Eat lunch Eat dinner Eat snacks Go to bed Exercise Everyday Stress Level Stress Scale [x] 1 Low [] 2 [] 3 [] 4 [] 5 High Stress related to: Support systems: Strong; very supportive; overly supportive Comfort Level Are you currently experiencing any pain? [x] Yes []No If yes, where: pelvis are started at 20 weeks On thge following scale, hopi the number, which describes your current level of pain. [] 0 [] 1 [] 2 [] 3 [] 4 [x] 5 [] 6 [] 7 [] 8 [] 9 [] 10 No Pain Worst Pain Possible How long does the pain last?: pretty constant What do you do to help the pain go away? Tylenol and sitting PLEASE COMPLETE THE FOLLOWING QUESTIONS - IF YOU HAVE DIABETES NOW OR HAVE HAD WITH A PREVIOUS HAVE YOU HAD ANY OF THE FOLLOWING SYMPTOMS OF LOW BLOOD SUGARS -- Denies Shaky [] Yes [] No Irritability [] Yes [] No Heart Palpitations [] Yes [] No Nervousness [] Yes [] No Cold sweats [] Yes [] No Headache [] Yes [] No Passed out [] Yes [] No Dizzy [] Yes [] No Confusion [] Yes [] No Seizures [] Yes [] No What do you use to treat your low blood sugars? Diabetes Testing and Medication Use Yes No Do you currently use a glucose testing meter? If yes, how often do you test? [x] [] Did you take insulin during any of these previous pregnancies? [] [x] Have your insulin reactions (low blood sugars) changed in any way recently? N/A If yes, please describe how they have changed. [] [] Do you have a Glucagon kit and are you familiar with its use? [] [] Have you been told told that you have any complications from diabetes? If yes, please describe: [] [] Do you check your feet? If yes, how often? [] [] Do you have foot problems? If yes, what kind? [] [] Have you ever received any diabetic education? If yes, where and when: [facility] 2024 [x] [] . Nutritional Assessment Form Date: 01/07/2025 ROYA: Estimated Date of Delivery: 04/18/25 EGA: 25w4d Past Medical History: Diagnosis Date Anxiety Depression Plantar wart of right foot Wrist fracture 2013 OB History 1 Para Term AB Living SAB IAB Ectopic Multiple Live Births Current Outpatient Medications Medication Sig Dispense Refill acetaminophen (TYLENOL) 325 mg tablet Take 2 tablets (650 mg total) by mouth every 6 (six) hours as needed for pain or headaches. States takes 1-2 tablets as needed aspirin 81 mg Take 1 tablet (81 mg total) by mouth in the morning. blood sugar diagnostic (glucose blood) strip 1 strip by other route as needed (Use in morning prior to breakfast, 1 hour after each meal for a total of 4 times daily). blood-glucose meter (BLOOD GLUCOSE MONITORING) kit 1 each by other route once daily. Use four times daily to check FSBS. In the morning prior to breakfast and 1 hour after each meal insulin aspart U-100 (NovoLOG) 100 unit/mL injection Inject 10 units with breakfast, lunch, dinner, subcutaneously in abdomen, prime 2 units (Patient taking differently: Inject 10 units with breakfast, lunch, dinner, subcutaneously in abdomen, prime 2 units Stated taking twice daily because only eating 2 meals adaily) 10 mL 11 insulin glargine (LANTUS SOLOSTAR U-100 INSULIN) 100 unit/mL (3 mL) insulin pen Inject 12 units in the morning and 24 units in the evening, subcutaneously in abdomen, prime 2 units (Patient taking differently: Inject 12 units in the morning and 24 units in the evening, subcutaneously in abdomen, prime 2 units Stated 16 Units in the morning and 16 Units in the evening daily) 15 mL 4 isopropyl alcohol-benzocaine (ALCOHOL-BENZOCAINE) 70-6 % pads, medicated Apply 1 each topically as needed (Use four times daily to check FSBS). LANCETS,ULTRA THIN MISC 1 each by in vitro route once daily. Use to check FSBS four times daily ondansetron (ZOFRAN) 4 mg tablet Take 1 tablet (4 mg total) by mouth every 8 (eight) hours as needed for nausea or vomiting. [id number] acid ( MULTI) 27-800 mg-mcg tablet Take 1 capsule by mouth once daily. No current facility-administered medications for this visit. Present MNT Therapy: Regular Insulin Therapy: Lantus and Humalog Date started: 2-3 weeks ago for Lantus Anthropometric Data: Height: Ht Readings from Last 1 Encounters: 12/31/24 157.5 cm (5' 2 ) Pre- Wt: Pregravid weight not on file Pre- BMI: Could not be calculated Current BMI: Body mass index is 48.1 kg/m . Pre Wt. Category: Obese Current Weight: Wt Readings from Last 1 Encounters: 01/07/25 119.3 kg (263 lb) Weight Gain Goals: 11-20 pounds Lab Data: BP BP Readings from Last 1 Encounters: 12/31/24 123/76 Hgb Hct OGCT OGTT HgA1C SMBG: Frequency : Testing Times: Glucose meter: Records Kept? [] Yes [] No Lifestyle Factors: Occupation of the mother: Substance Abuse: Living Conditions Hours worked per week Start March 01 40 hours weekly for 6 months yearly Educational Level Bachelors degree Family issues stable Cultural/ethnic/congregation influences denies Exercise approved by MD? Yes Current Exercise program walking Who prepares the meal Self Who purchase food at your home? Self or spouse Equipment use for cooking/food storage Has everything Food Assistance(Ex.WIC, Food [place]) Declined Dining out Yes 1-2 times a week Appetite/Appetite changes Good Weight History Since COVID gained 20-30 pounds Do you have cats at home? Feeding Plans Breast Feeding If you have cats, who cleans the litter box? Cravings/Aversions/Pica Craves tacos/ No food aversions Nutrition Assessment Worksheet: Week/Weekend Food Recall Breakfast Water, maybe a cheese stick or yogurt Snack Lunch Chicken/starch, vegetable, sometimes fruit, water or coke zero Snack Cheese stick, yogurt, crackers Dinner Burger, chicken dish, pizza, water or coke zero, sometimes 2% milk Snack Cheese stick, yogurt, crackers Snack Time 11 AM 3 PM 6 PM 9:30 PM Sandra Spence presents for diet instruction per doctor order secondary to diagnosis of gestational diabetes on insulin. Noted history of obesity. Food recall suggests patient typically consumes a balanced diet of more processed foods. Typically Sandra does not eat breakfast because she gets up later. Pt has lost 12 pounds to date. During her first trimester she was experiencing nausea and vomiting but has been doing better now and appetite has been good. Based on patient's stated pre- weight, weight gain goal is 11-20 pounds. Nutrition diagnosis: inconsistent and sometimes excessive carbohydrate intake related to lack of nutrition knowledge as evidenced by patient's food recall. Instructed patient on a 2000 kcal meal plan of 3 meals and 2 snacks, carbohydrate counting, label reading, dining out, and portion control. Discussed foods rich in iron and calcium. Encouraged patient to limit dining out and measure food for 2 days. Pt expressed understanding with counting carbohydrates and agreed to send RD a 2 day food log. Please refer to health habits for other goals. Reviewed the Diabetes Self Management Support Plan, discussed using MyFitnessPal and [email or web address]., to help manage her diabetes. Patient understands that we will follow up weekly with a phone call to review progress. Breakfast 8AM 30 grams of CHO, Lunch 11 AM 45-60 grams of CHO, Snack 3 PM 30 grams of CHO, Dinner 6 PM 45-60 grams of CHO, HS Snack 9:30 PM 30 grams of CHO. Face to face time 49 minutes. documented in this encounter [facility] 12-31-2024 History of Present illness Narrative REASON FOR CONSULTATION: GDMA2 HISTORY OF PRESENT ILLNESS: Sandra Spence is a pleasant 34 y.o. at 24w4d due on Estimated Date of Delivery: 04/18/25. complicated by: T2DM vs early onset GDMA2 at 16wk GA. Initiate on lantus 10U qhs at 21wk GA. H/o PCOS and family h/o DM Review of BG 11/12-12/27 Fasting 100-110s Postprandials >140s = 180s Today, the patient is doing well. She denies headaches, vision changes, nausea, vomiting, right upper quadrant or epigastric pain, SOB or chest pain. She denies contractions, vaginal bleeding, leaking of fluid. She reports good movement. Aneuploidy screening: declined Carrier screening: Gender unknown I have reviewed the pertinent available patient records including but not limited to notes, labs and images. PAST OBSTETRICAL HISTORY: OB History Para Term AB Living 1 SAB IAB Ectopic Multiple Live Births # Outcome Date GA Lbr Agustín/2nd Weight Sex Type Anes PTL Lv 1 Current MEDICAL HISTORY: Past Medical History: Diagnosis Date Anxiety Depression Plantar wart of right foot Wrist fracture 2013 SURGICAL HISTORY: Past Surgical History: Procedure Laterality Date WISDOM TOOTH EXTRACTION FAMILY/GENETIC HISTORY: Family History Problem Relation Age of Onset Diabetes Maternal Grandmother Heart disease Father SOCIAL HISTORY: Social History Tobacco Use Smoking status: Never Smokeless tobacco: Never Substance Use Topics Alcohol use: Not Currently Drug use: Never ALLERGIES: No Known Allergies CURRENT MEDICATIONS: Current Outpatient Medications: blood sugar diagnostic (glucose blood) strip, 1 strip by other route as needed (Use in morning prior to breakfast, 1 hour after each meal for a total of 4 times daily)., Disp: , Rfl: blood-glucose meter (BLOOD GLUCOSE MONITORING) kit, 1 each by other route once daily. Use four times daily to check FSBS. In the morning prior to breakfast and 1 hour after each meal, Disp: , Rfl: isopropyl alcohol-benzocaine (ALCOHOL-BENZOCAINE) 70-6 % pads, medicated, Apply 1 each topically as needed (Use four times daily to check FSBS)., Disp: , Rfl: LANCETS,ULTRA THIN MISC, 1 each by in vitro route once daily. Use to check FSBS four times daily, Disp: , Rfl: [id number] acid ( MULTI) 27-800 mg-mcg tablet, Take 1 capsule by mouth once daily., Disp: , Rfl: insulin aspart U-100 (NovoLOG) 100 unit/mL injection, Inject 10 units with breakfast, lunch, dinner, subcutaneously in abdomen, prime 2 units, Disp: 10 mL, Rfl: 11 insulin glargine (LANTUS SOLOSTAR U-100 INSULIN) 100 unit/mL (3 mL) insulin pen, Inject 12 units in the morning and 24 units in the evening, subcutaneously in abdomen, prime 2 units, Disp: 15 mL, Rfl: 4 metFORMIN XR (GLUCOPHAGE XR) 500 mg 24 hr tablet, Take 1 tablet (500 mg total) by mouth daily with breakfast. (Patient not taking: Reported on 12/31/2024), Disp: , Rfl: ondansetron (ZOFRAN) 4 mg tablet, Take 1 tablet (4 mg total) by mouth every 8 (eight) hours as needed for nausea or vomiting. (Patient not taking: Reported on 12/31/2024), Disp: , Rfl: RECENT HOSPITALIZATION: none HABITS: Patient activity no restrictions, diet no restrictions REVIEW OF SYSTEMS: Head and Neck: Negative for any dizziness and headaches. Cardiovascular and Respiratory System: Denies any chest pain, shortness of breath, and coughing. Abdominal and System: Denies any abdominal pain, nausea, vomiting, vaginal bleeding, and vaginal discharge REVIEW OF TESTS AND ULTRASOUND REPORTS: Referral records and [facility] chart were reviewed Pertinent Ultrasound findings are see formal ultrasound report. PHYSICAL EXAMINATION: BP 123/76 Pulse 101 Ht 157.5 cm (5' 2 ) Wt 119.7 kg (263 lb 12.8 oz) LMP 07/12/2024 BMI 48.25 kg/m Well-appearing in no distress. Respirations not labored, speaking comfortably in full sentences Gravid abdomen OVERALL ASSESSMENT -Sandra Spence is a pleasant 34 y.o. at 24w4d -T2DM vs GDMA2 COUNSELING Diabetes is a is a state of carbohydrate intolerance with subsequently insulin resistance and hyperglycemia. This is a malfunction or dysfunction of glucose sensors in the liver with inappropriate release of glucose followed by hyperinsulinemia followed by normal insulin secretion and then relatively deficiency in insulin secretion resulting in both hyperglycemia and associated hypertriglyceridemia. This along with placental hormones such as human placental lactogen and TNF alpha cause hyperglycemia. The patient eventually develops insulin resistance and hyperglycemia, thus the patient's insulin is not sufficient to achieve a normal glycemic state. I informed the patient that maternal hyperglycemia results in hyperglycemia leading to adverse outcomes in the growth and development. We reviewed the implications and risks of diabetes in . Diabetes in is associated with poorer outcomes if blood glucose levels are not well controlled. Potential effects of uncontrolled diabetes , or hyperglycemia, include: maternal risks (abnormal labors, prolonged labors, delivery, hemorrhage), risks (LGA profile, shoulder dystocia, stillbirth, delayed lung maturation) and subsequent risks ( hypoglycemia, polycythemia, hyperbilirubinemia with jaundice, seizures) In addition, women with diabetes in are at increased risk of developing hypertension diseases in ,such as gestational hypertension, or preeclampsia. Patient was explained that the high risk of shoulder dystocia in fetuses with EFW 4500 gm or higher. Long-term risk to offspring from poor maternal glycemic control include: obesity, cardiovascular disease, impaired glucose tolerance and Type 2 diabetes. It is possible that she has already developed T2DM or was prediabetic leading into . Glucose goals in : Fasting 60 - 95: Mean fasting glucose values are important in managing diabetes in women because they provide overall glycemic estimate, and are predictive of increased fat mass in the women s offspring. Increased fat mass has been shown to be associated with the development of childhood obesity, and diabetes. One hour postprandial 90 - 140: Postprandial measurements are important in management of diabetes in because they are associated with incidence of large for gestational age infants, and lower rates of delivery for cephalopelvic disproportion when well controlled. Discussed monitoring for hypogylcemia, and treatment of hypoglycemia. Discussed her current diet and her awareness of grams of carbohydrate per meal. Encouraged her to be aware of carbohydrate intake and note which foods causing values above goal. Encouraged her on diet modifications. SUMMARY/RECOMMENDATION: Current blood glucose control: poor Medications: Increase Lantus to 12 units in the morning and 24 units in the evening. Added Humalog 10 units with the breakfast, lunch, dinner Recommend continuing monitoring blood glucose logs 4 times daily Incomplete level 2 anatomy ultrasound and echocardiogram, attempt completion in 4 weeks through MFM Recommend serial growth ultrasounds every 4 weeks, through primary OB Recommend twice weekly testing starting at 32 weeks gestation, through primary OB Delivery recommendations : Recommend delivery at [id number] Discuss delivery if estimated weight is >4500g Use 1/2 dose of insulin the night before her planned delivery. Will discuss at later gestation Monitor patient's BG every 4hrs during latent labor, every 1 hr during active labor with goal BG to be less than 140mg/dl. Can use insulin sliding scale prn hyperglycemia. Once delivered, check blood glucose fasting and 1hr post prandial, with goal of 100-130mg/dl for fasting and <180mg/dl for random or post prandial blood glucose levels = Obtain a 2-hour GTT 6-8 weeks . Also recommend yearly evaluation of blood glucose as patient is at an increased risk of developing diabetes later on. DISPOSITION: At this point the patient is in complete care of her finisher plate. Patient does have ultrasound and office visit scheduled with us. Thank you for allowing me to participate in the care of Sandra Spence. If there any questions please do not hesitate to contact us. Sakshi Morillo MD Maternal- Medicine [facility] [address] [facility] [address] [facility] [address] [place] [address] [facility], the CDC, and other organizations representing maternal and public health professionals recommend that , , and lactating people and those considering receive the COVID-19 vaccination. Vaccination is the best method to reduce maternal and complications of SARS-CoV-2 infection. This document was created with [employer] technology. Though I make every effort to review the dictation as it is transcribed, on occasion the spoken word can be misinterpreted by the technology leading to inappropriate words, phrases, or sentences. This note is addressed to the requesting provider as a consultation for clinical guidance. Specific medical abbreviations are occasionally used and those are generally approved by the [place]?Board of?Obstetrics and?Gynecology?as well as?Emery reveles abbreviations. The above plan of care was based solely on the diagnoses for which a consultation was requested. ?More frequent testing may be indicated based on her other medical/obstetrical conditions. The management of other or medical conditions is beyond the scope of requested consultation and will continue to be followed by the primary finisher plate or primary care provider. Note to patient: The Century Cures Act makes medical notes like these available to patients in the interest of transparency. However, be advised this is a medical document. It is intended as peer to peer communication. It is written in medical language and may contain abbreviations or verbiage that are unfamiliar. It may appear blunt or direct. Medical documents are intended to carry relevant information, facts as evident, and the clinical opinion of the practitioner. Headache/epigastric pain/blurry vision/swelling? No Cramping/contractions? No Abnormal vaginal discharge? No Spotting/vaginal bleeding? No Loss or gush of fluid like your water may have broken? No Do you have cats at home? No Do you change the litter box (reason: risk of toxoplasmosis)? N/a Genetic testing done this here or other office? declined Have you been seen here at [facility] in a previous ? N/a Recent ER visits or hospitalizations? No Bring blood sugar log or meter with you today? (Please bring them with you for every visit at [facility]) gdm , appt next week for gdm class Flu vaccine (Sep-January)? No Any concerns that you would like me to mention to the provider today? No documented in this encounter [facility] 12-28-2024 History of Present illness Narrative Reason for Appointment: Patient ID: Sandra Spence is a 34 y.o. female who presents for Routine Visit Patient presents today for Annual Exam. and Return OB appointment. MEDICATIONS Current Outpatient Medications [...] meal for a total of 4times daily. insulin pen needle 29G x 8mm misc 1 each, Subcutaneous, Daily Lantus SoloStar 10 Units, Subcutaneous, Nightly, FILL ACCORDING TO INSURANCE COVERAGE multivitamin () 27-0.8 MG tablet 1 tablet, [...] Constitutional: Appearance: Normal appearance. She is well-developed. Genitourinary: Vulva normal. Cardiovascular: Rate and Rhythm: Normal rate and [...] nursing note reviewed. Exam conducted with a pump and still operator present. Vitals: Estimated body mass index is 46.79 kg/m as calculated from the following: Height as of 04/22/24: 5' 3 . Weight as of this encounter: 264 lb 1.9 oz. BP: 120/82 Patient's last menstrual period was 07/12/2024. ASSESSMENT & PLAN ICD-10-CM 1. 24 weeks gestation of Z3A.24 POCT urinalysis dipstick manually resulted 2. Second trimester Z34.92 POCT urinalysis dipstick manually resulted 3. Well woman exam with routine gynecological exam Z01.419 Pap Smear HPV DNA probe, amplified 4. Exposure to STD Z20.2 CHLAMYDIA TRACHOMATIS (GENITO/STI) Neisseria gonorrhea DNA probe, direct 5. Vaginal discharge N89.8 SURESWAB(R) ADVANCED VAGINITIS PLUS, TMA 6. Diabetes mellitus screening Z13.1 CBC Glucose tolerance, 1 hour CBC Glucose tolerance, 1 hour Return OB/Annual Exam: Patient presents today for a annual exam/routine obstetrics appointment. Patient is currently 24w1d . Patient states she is doing well but has complaints of nausea in the morning. Pap and cultures was obtained without difficulty and patient was given orders for CBC and antibody screen. Patient will be referred to [facility] for Diabetic Education. Patient has appointment with them this , and aware another referral needs to be completed. Sent ASA 81mg to patients pharmacy to start taking daily along with increasing Lantus to 16 units at bedtime. Orders Placed This Encounter Procedures HPV DNA probe, amplified CHLAMYDIA TRACHOMATIS (GENITO/STI) Neisseria gonorrhea DNA probe, direct CBC Glucose tolerance, 1 hour POCT urinalysis dipstick manually resulted Follow Up: Patient is to schedule annual exam for next year and return to office in 4 weeks for OB appointment. Documented by My Raza LPN on behalf of: Glenn Sweet DO documented in this encounter [facility] 11-30-2024 History of Present illness Narrative Reason for Appointment: Patient ID: Sandra Spence is a 34 y.o. female who presents for Routine Visit Patient presents today for Return OB appointment. MEDICATIONS Current Outpatient Medications Medication Instructions Alcohol Swabs (Alcohol Prep Pad) 70 % pads 1 Pad, Topical, Daily, Use four times daily to check FSBS. Blood Glucose Monitoring Suppl ([employer]-iOpener Glucometer) w/Device kit 1 kit, Does not [...] on lantus at night and referred to [facility] for level II ultrasound and gestational diabetes Orders Placed This Encounter Procedures POCT urinalysis dipstick manually resulted Follow Up: Patient is to return to office in 2 week for routine OB appointment. Documented by Cinthia Lamas MA on behalf of: DAVID Mahoney documented in this encounter [facility] 10-26-2024 History of Present illness Narrative Reason for Appointment: Patient ID: Sandra Spence is a 34 y.o. female who presents [...] nursing note reviewed. Exam conducted with a pump and still operator present. Vitals: Estimated body mass index is [...] or undercooked meat, and stay away from [facility]. Patient has been consulted regarding any further do's and don'ts of . Patient voiced understanding and all questions and concerns were answered. Orders Placed This Encounter Procedures POCT urinalysis dipstick manually resulted Follow Up: Patient is to return in 4 weeks for routine OB appointment. Documented by Lexi Momin LPN on behalf of: Glenn Sweet DO documented in this encounter [facility] 09-25-2024 History of Present illness Narrative Reason for Appointment: Patient ID: Sandra Spence is a 34 y.o. female who presents [...] or undercooked meat, and stay away from [facility]. Patient has also been advised to [...] E88.819) Would like to a referral to [facility] as she is trying to start a family and has irregular cycles with insulin resistance. Dec, Irregular menstruation (ICD-10 - N92.6) [facility] Other 01-26-2024 Evaluation note* Encounter Date Diagnosis [...] physician as soon as possible for reevaluation. [facility] Other 01-22-2024 Evaluation note* Encounter Date Diagnosis [...] of this and agrees to this plan. [facility] Other 07-10-2023 Evaluation note* Encounter Date Diagnosis [...] and make recommendations for long-term supplementation with rtsa-emn-znoaazg formulations or prescription grade repletion. May, Family [...] Discussed implications of family history of early [place] in her father <55 years old. May [...] was counseling done by myself, Cathryn CORTEZ. [facility] Other 06-02-2023 Evaluation note* Encounter Date Diagnosis Assessment Notes Treatment Notes Treatment Clinical Notes Apr, Obesity (ICD-10 - E66.9) Plan, purchase and prepare healthy foods. Use shopping list, Cl[employer] shopping to curb impulse buying. Stock pantry [...] and make recommendations for long-term supplementation with vfju-vwe-hchauif formulations or prescription grade repletion. Apr, Family [...] Discussed implications of family history of early [place] in her father <55 years old. May [...] was counseling done by myself, Cathryn CORTEZ. [facility] Other 03-31-2023 Evaluation note* Encounter Date Diagnosis [...] and make recommendations for long-term supplementation with yiwg-xzi-wsbkxmu formulations or prescription grade repletion. Jan, Family [...] was counseling done by myself, Cathryn CORTEZ. [facility] Other 11-08-2022 Evaluation note* Encounter Date Diagnosis [...] understanding and is agreeable to treatment plan [facility] Other Evalugofbb noteNo [facility] Other Evsqwation noteNo assessment information available [facility] Work Phone: Evaluation note* Diagnosis Onset Date Resolution Status Admit Date 9 weeks gestation of acute September 14, 024 10:35am Right calf pain acute September 14, 2024 10:35am Right leg swelling acute Novemb er 2023 10:35am [facility] Work Phone: Evgtigrdhf note* Diagnosis Missed menses , unspecified gestational age Encounter for supervision of normal first in first trimester documented in this encounter [facility]* Diagnosis 15 weeks gestation of Second trimester state, incidental Diabetes mellitus screening Screening for diabetes mellitus Screening, , for anatomic survey Encounter for anatomic survey documented in this encounter [facility] note* Diagnosis Second trimester state, incidental 20 weeks gestation of Insulin controlled gestational diabetes mellitus (GDM) during , antepartum Gestational diabetes mellitus (GDM), antepartum, gestational diabetes method of control unspecified documented in this encounter [facility] HealthcareEvaluation note* Diagnosis Insulin controlled gestational diabetes mellitus (GDM) in second trimester- Primary Diet controlled gestational diabetes mellitus (GDM) in second trimester 24 weeks gestation of Hyperglycemia due to diabetes mellitus ([facility]) documented in this encounter [facility] SystemEvaluation note* Diagnosis Insulin controlled gestational diabetes mellitus (GDM) in second trimester- Primary documented in this encounter [facility] System[facility] note* Diagnosis 24 weeks gestation of Second trimester state, incidental Well woman exam with routine gynecological exam Routine gynecological examination Exposure to STD Vaginal discharge Leukorrhea, not specified as infective Diabetes mellitus screening Screening for diabetes mellitus Gestational diabetes mellitus (GDM), antepartum, gestational diabetes method of control unspecified Elevated glucose tolerance test Impaired glucose tolerance test Pelvic pain in female Unspecified symptom associated with female genital organs documented in this encounter [facility] HealthcareEvaluation note* Diagnosis Gestational diabetes mellitus (GDM) in second trimester, gestational diabetes method of control unspecified- Primary documented in this encounter [facility] SystemEvaluation note* Diagnosis Insulin controlled gestational diabetes mellitus (GDM) in second trimester 24 weeks gestation of documented in this encounter [facility] SystemEvaluation note* Diagnosis Insulin controlled gestational diabetes mellitus (GDM) in second trimester 24 weeks gestation of [facility]* Diagnosis Insulin controlled gestational diabetes mellitus (GDM) in second trimester- Primary 24 weeks gestation of [facility]* Diagnosis Third trimester state, incidental 28 weeks gestation of Gestational diabetes mellitus (GDM), antepartum, gestational diabetes method of control unspecified documented in this encounter [facility] HealthcareEvaluation note* Diagnosis Third trimester state, incidental 30 weeks gestation of documented in this encounter [facility] Narrative - Reported* Type Description Date Surgical History [place] teeth extraction Surgical History Planter wart removed right foot 2010 Hospitalization History See Above [facility] Other History general Narrative - Reported* Type Description Date Medical History Depression Medical History Anxiety Surgical History [place] teeth extraction Surgical History Planter wart removed right foot 2010 Hospitalization History See Above [facility] Other InstructionsNot on filedocumented in this encounter [facility]ed in this [facility] filedocumented in this encounter [facility] filedocumented in this encounter [facility] on filedocumented in this encounter [facility] on filedocumented in this encounter [facility] Summary Purpose Family History Relationship Condition Age at Onset Recorded Date/T mark father Heart disease Unknown Advance Directives Advance Directive Response Recorded Date/ Time Advance Directives No December 10:33am Reason for Referral Reason evaluate Diagnosis 1 Insulin resistance ( E88.819) Referral Organization [facility] Dahlia ramírez Referring Provider First Name Mirta Referring Provider Last Name Luluachelia Referring Provider Specialty Nurse Pract itioner Referred Organization [facility] Referred Provider Glenn Sweet Referred Address ,[place], [place],[address] Referred Provider Specialty OB - Gynecol ogy [...] Reason Comments Amenorrhea Reason Comments Routine Visit Reason Comments gdm doing locally Reason Comments Gestational Diabetes Specialty Diagnoses / Procedures Referred By Contac t Referred To Contact Maternal and Medicine Diagnoses Gestational diabetes mellitus (GDM) in second trimester, gestational diabetes method of control unspecified Glenn Sweet, DO [address] [place] [address] Phone: tel: fax: Maternal- Medicine at [facility] [address] [place] [address] Phone: tel: fax: Referral ID Status Reason Start Date Expiration Date Visits Requested Visits Authorized [id number] Pending Review Specialty Services Required 12/30/2024 12/30/2025 1 1 Reason Comments GDMA2 vs T2DM INFORMATION SOURCE (unrecogn ized section and content) DATE CREATED AUTHOR 03/08/2023 [facility] DATE CREATED AUTHOR AUTHOR'S ORGANIZ ATION 09/24/2023 [facility] DATE CREATED AUTHOR AUTHOR'S ORGANIZ ATION 12/06/2023 [facility] DATE CREATED AUTHOR AUTHOR'S ORGANIZ ATION 02/09/2025 [facility] Specialists EPIC Goals (unrecognized section and content) Goals may be documented in a n alternate section Care Teams (unrecognized sec tion and content) Team Status: Active Member Role Status Dates Leticia Puentes APRN SHADOWGRAPH SCALE OPERATOR-Dahlia Primary Care Provider Active Team Status: Inactive Member Role Status Dates Leticia Puentes APRN SHADOWGRAPH SCALE OPERATORBina Primary Care Provider Active Start: November 29, 2023 End: November 29, 2023 ISAI Palmer Attending Provider Active S tart: November 29, 2023 End: November 29, 2023 Team Status: Active Member Role Status Dates Mirta Matta APRN SHADOWGRAPH SCALE OPERATOR-C Primary Care Provider Active Team Status: Inactive Member Role Status Dates Leticia Puentes APRN SHADOWGRAPH SCALE OPERATOR-C Primary Care Provider Active Start: September 14, 2024 End: September 14, 2024 Mirta Matta APRN SHADOWGRAPH SCALE OPERATOR-Dahlia Attending Provider Active Start: September End: September 14, 2024 Sweater Operator Relationship Specialty Start Date End Date Mirta Matta NP [address] [place] [address], [place] [address] PCP - General Family Medicine 09/25/24 Sweater Operator Relationship Specialty Start Date End Date Mirta Matta NP [address] [place] [id number] PCP - General Family Medicine 09/25/24 Sweater Operator Relationship Specialty Start Date End Date Mirta Matta NP [address] [place] [address], [place] [address] PCP - General Family Medicine 09/25/24 Sweater Operator Relationship Specialty Start Date End Date Mirta Matta NP [address] [place] [address], [place] [address] PCP - General Family Medicine 09/25/24 Sweater Operator Relationship Specialty Start Date End Date Leticia Puentes APRN-TRAFFIC ADMINISTRATOR PCP - General Family Medicine 10/10/21 Sweater Operator Relationship Specialty [place] [address] [place] [address], [place] [address] PCP - General Family Medicine 09/25/24 Sweater Operator Relationship Specialty Start Date End Date Mirta Matta APRN-SHADOWGRAPH SCALE OPERATOR [address] [place] [address] PCP - General 12/29/24 Sweater Operator Relationship Specialty Start Date End Date Paxton MirtaABHAY-SHADOWGRAPH SCALE OPERATOR [address] [place] [address] PCP - General 12/29/24 Sweater Operator Relationship Specialty Start Date End Date Mirta Matta APRN-SHADOWGRAPH SCALE OPERATOR [address] [place] [address] PCP - General 12/29/24 Sweater Operator Relationship Specialty Start Date End Date Mirta Matta APRN-SHADOWGRAPH SCALE OPERATOR [address] [place] [address] PCP - General 12/29/24 Sweater Operator Relationship Specialty Start Date End Date Mirta Matta NP [facility] [facility] [place] [address] PCP - General Family Medicine 09/25/24 Sweater Operator Relationship Specialty Start Date End Date Mirta Matta APRN-SHADOWGRAPH SCALE OPERATOR [address] [place] [address] PCP - General 12/29/24 Sweater Operator Relationship Specialty Start Date End Date Mirta Matta APRN-SHADOWGRAPH SCALE OPERATOR [address] [place] [address] PCP - General 12/29/24 Sweater Operator Relationship Specialty Start Date End Date Mirta Matta APRN-SHADOWGRAPH SCALE OPERATOR [address] [facility] [place] [address] PCP - General 12/29/24 Sweater Operator Relationship Specialty Start Date End Date Mirta Matta APRN-SHADOWGRAPH SCALE OPERATOR [address] [facility] [address] PCP - General 12/29/24 Sweater Operator Relationship Specialty Start Date End Date Mirta Matta APRN-SHADOWGRAPH SCALE OPERATOR [address] [facility] [address] PCP - General 12/29/24 Sweater Operator Relationship Specialty Start Date End Date Mirta Matta NP [address] [facility] [address] [place] [address] PCP - General Family Medicine 09/25/24 Sweater Operator Relationship Specialty Start Date End Date Mirta Matta APRN-NP [address] [facility] [address] PCP - General 12/29/24 Sweater Operator Relationship Specialty Start Date End Date Mirta Matta NP [address] [place] [address] [place] [address] PCP - General Family Medicine 09/25/24 Sweater Operator Relationship Specialty Start Date End Date Mirta Matta NP [address] [place] [address] [place] [address] PCP - General Family Medicine 09/25/24 Sweater Operator Relationship Specialty Start Date End Date Mirta Matta NP [address] [place], [place] [id number] PCP - General Family Medicine 09/25/24 Sweater Operator Relationship Specialty Start Date End Date Carly Mattanifer DANNY Neville [address] [place] [address] PCP - General Family Medicine 09/25/24 FOR [...] BE BASED ON THE PRIMARY CLINICAL RECORDS. [employer] [facility]. provides no warranty or guarantee of the accuracy or completeness of information in this document.
--- NOTE | 2025-02-22 16:07 | US_ITS ---
[place] [id number] Patient Name: SARAHY SPENCE MRN: [facility]:[id number] date: 1990 Sex: F Assigned Patient Location: [facility] Current Patient Location: Accession/Order Number: [id number] Exam Date: 02/23/2025 13:10 Report Date: 02/23/2025 13:11 At the request of: YEISON RAINEY DO Procedure: US OB BPP w non-stress Ultrasound obstetrical biophysical profile HISTORY: Gestational diabetes There is adequate breathing movement, gross body movement, tone and amniotic fluid volume for total score of 8 out of 8. Amniotic fluid index is 12.12 cm within normal limits. heart rate is 159 bpm. Concern for possible nuchal cord. US/US OB BPP w non-stress IMPRESSION: Adequate biophysical profile. Concern for nuchal cord. Impression dictated by: Shemar Briggs M.D.02/23/2025 1:11 PM Dictation Location: [facility] Electronically authenticated by: [id number] Y Date: 02/23/2025 13:11
[2025-02-22 16:12] VITALS: BP 138/76
== END 2025-02-22 17:07 | disposition home or self-care (01) ==
LOC: US 15:47 → FBC 15:56
PROVIDERS: PCP Nurse Practitioner Family; Visit Provider Obstetrics & Gynecology
DX: O24.419 Gestational diabetes mellitus in pregnancy, unspecified control (principal); Z3A.32 32 weeks gestation of pregnancy
CPT/HCPCS: 76818

== ENCOUNTER 2025-02-25 16:30 | Observation (INO) | payer OTHER, SELFPAY ==
[2025-02-25] VITALS (44 sets, daily range): BP systolic 135–215; BP diastolic 72–126; PULSE 81–97; TEMP 36.4–36.7
[2025-02-25 16:53] LABS: Basophils Percent Auto 0.1 % (0.2-2.0); Eosinophils Absolute Auto 0.1 10^3/uL (0.0-0.7); Eosinophils Percent Auto 0.7 % (0.9-7.0); Hematocrit 41.2 % (36.0-48.0); Hemoglobin 13.7 g/dL (12.0-16.0); Immature Granulocytes Abs Auto 0.02 10^3/uL (0.00-0.03); Immature Granulocytes Pct Auto 0.2 % (0.0-0.5); Lymphocytes Absolute Auto 2.1 10^3/uL (1.2-3.8); Lymphocytes Percent Auto 22.1 % (20.5-60.0); Mean Corpuscular HGB Conc 33.3 g/dL (29.9-35.2); Mean Corpuscular Hemoglobin 28.8 pg (26.7-34.0); Mean Corpuscular Volume 86.7 fL (81.0-99.0); Mean Platelet Volume 12.8 fL (9.5-13.5); Monocytes Absolute Auto 0.7 10^3/uL (0.3-0.8); Monocytes Percent Auto 7.8 % (1.7-12.0); Neutrophils Absolute Auto 6.5 10^3/uL (1.4-6.5); Neutrophils Percent Auto 69.1 % (43.0-75.0); Platelet Count 271 10^3/uL (150-450); Red Blood Count 4.75 10^6/uL (4.20-5.40); Red Cell Distribution Width 12.9 % (11.0-15.0); White Blood Count 9.3 10^3/uL (4.0-11.0)
[2025-02-25] MEDS: LABETALOL HCL 20 MG/4 ML SYRINGE IVP (16:58)
[2025-02-25] MEDS: 0.9 % SODIUM CHLORIDE 1,000 ML 75 ML IV (16:59)
[2025-02-25] MEDS: MAGNESIUM-BOLUS FROM THE BAG- 40 GM/1,000 ML IV.SOLN IV (16:59)
[2025-02-25 17:05] LABS: Alanine Aminotransferase 8 U/L (14-59); Aspartate Amino Transferase 16 U/L (15-37); Estimated GFR (African America >60 (>=60 mL/min/1.73m^2); Estimated GFR (Non-African Ame >60 (>=60 mL/min/1.73m^2); Uric Acid 4.9 mg/dL (2.6-6.0)
[2025-02-25 17:12] LABS: Partial Thromboplastin Time 26.1 sec (22.3-36.2); Prothrombin Time 9.7 sec (9.0-11.6)
[2025-02-25] MEDS: MAGNESIUM SULFATE IN WATER 40 GM/1,000 ML IV.SOLN IV (17:23)
--- NOTE | 2025-02-25 17:39 | PM.OBHP ---
OB - H&P: HPI History of Present Illness Chief complaint: GDM : 1 Para: 0 Gestational age based on last menstrual period: 32 4/7wks Narrative: 34 yo at 32 4/7wks presents for nst dt gdm insulin controlled, was found to significantly elevated bp without epigastric pain, visual changes or headaches, no urinary symptoms, positive fm, denies vb, lof, ctxns History of Present Dating criteria: LMP confirmed by 1st trimester US care: good care Ultrasounds: normal 1st trimester US and normal mid trimester US complications: preeclampsia and gestational diabetes Medical complications OB: none Labs Blood type: O (+) positive Rubella: immune RPR/VDLR: nonreactive GBS status: unknown HBsAG: negative Review of Systems ROS Status of ROS: 10 or more systems reviewed and unremarkable except as noted in history and below Meds Home Medications and Allergies Home Medications ?Medication ?Instructions ?Recorded ?Confirmed ?Type aspirin 81 mg tablet,delayed 81 mg PO DAILY 02/25/25 02/25/25 History release insulin NPH isoph U-100 human 100 unit subcut 02/25/25 History unit/mL (3 mL) subcutaneous pen (Humulin N NPH U-100 Insulin KwikPen) insulin glargine 100 unit/mL (3 unit subcut 02/25/25 History mL) subcutaneous pen (Lantus Solostar U-100 Insulin) magnesium oxide 400 mg (241.3 mg 400 mg PO DAILY 02/25/25 02/25/25 History magnesium) tablet Allergies Allergy/AdvReac Type Severity Reaction Status Date / Time No Known Drug Allergies Allergy Verified 02/05/25 19:38 Exam Constitutional Vital Signs, click to edit/add: Last Vital Signs Temp 97.9 F 02/25/25 17:21 Pulse 81 02/25/25 17:35 Resp 18 02/25/25 17:00 BP 173/97 H 02/25/25 17:35 O2 Del Method Room Air 02/25/25 17:00 Documenting provider has reviewed patient's vital signs: yes Common normals: no apparent distress Respiratory Common normals: normal respiratory effort and clear to auscultation bilaterally Cardio Common normals: regular rate and regular rhythm GI Common normals: Normal to inspection, nondistended, normoactive bowel sounds present Extremity Common normals: no clubbing, cyanosis or edema and no calf tenderness Results Labs Labs: Short CBC 02/25/25 Range/Units 16:47 WBC 9.3 (4.0-11.0) 10^3/uL Hgb 13.7 (12.0-16.0) g/dL Hct 41.2 (36.0-48.0) % Plt Count 271 (150-450) 10^3/uL BMP 02/25/25 16:47 BUN 6.0 L Creatinine 0.82 Liver Function 02/25/25 Range/Units 16:47 AST 16 (15-37) U/L ALT 8 L (14-59) U/L OB - A/P Assessment and Plan (1) Intrauterine : (2) Gestational diabetes mellitus (GDM) affecting : (3) Severe preeclampsia: Assessment and Plan: iv, pih panel, magnesium 4g bolus then 2g per hour, celestone, iv labetalol, discussed case with mfm Plan iup at 32 4/7wks
[2025-02-25] MEDS: LABETALOL HCL 20 MG/4 ML SYRINGE 40 MG IVP (17:42)
[2025-02-25] MEDS: BETAMETHASONE ACE/BETAMETHASONE SOD PHOS 30 MG/5 ML 12 MG IM (17:42)
[2025-02-25 18:22] LABS: INR <0.93
[2025-02-25 18:23] LABS: Fibrinogen 682 mg/dL (200-400)
[2025-02-25 18:36] LABS: Creatinine Urine Random 98.14 mg/dL (20.00-300.00); Protein Creatinine Ratio Urine 0.88; Total Protein Urine Random 86.6 mg/dL (<=11.9)
[2025-02-25] MEDS: LABETALOL HCL 20 MG/4 ML SYRINGE 80 MG IVP (18:50)
[2025-02-25] MEDS: HYDRALAZINE HCL 20 MG/ML VIAL 10 MG IVP ×2 (20:15→21:59)
[2025-02-25 20:20] LABS: Amnisure NEGATIVE (NEGATIVE); Internal Control Within Normal Limits
[2025-02-26 08:57] LABS: Bilirubin Urine NEGATIVE (NEGATIVE); Blood Urine NEGATIVE (NEGATIVE); Clarity Urine CLEAR (CLEAR); Color Urine YELLOW (YELLOW); Glucose Urine UA NEGATIVE (NEGATIVE); Ketones Urine 15 mg/dL (NEGATIVE); Leukocyte Esterase Urine NEGATIVE (NEGATIVE); Nitrite Urine NEGATIVE (NEGATIVE); Protein Urine 100 mg/dL (NEG/TRACE); Specific Gravity Urine 1.025 (1.005-1.025); Urobilinogen Urine 0.2 EU/dL (0.2-1.0)
[2025-02-26 08:58] LABS: Urine Microscopic Indicated YES
[2025-02-26 09:10] LABS: Amphetamine Screen Urine NEGATIVE (NEGATIVE); Barbiturates Screen Urine NEGATIVE (NEGATIVE); Benzodiazepines Screen Urine NEGATIVE (NEGATIVE); Buprenorphine Screen Urine NEGATIVE (NEGATIVE); Cannabinoid Screen Urine NEGATIVE (NEGATIVE); Cocaine Screen Urine NEGATIVE (NEGATIVE); Methadone Screen Urine NEGATIVE (NEGATIVE); Methamphetamines Screen Urine NEGATIVE (NEGATIVE); Opiate Screen Urine NEGATIVE (NEGATIVE); Oxycodone Screen Urine NEGATIVE (NEGATIVE); Phencyclidine Screen Urine NEGATIVE (NEGATIVE); Tricyclic Antidepressant Urine NEGATIVE (NEGATIVE)
[2025-02-26 09:13] LABS: Bacteria Urine TRACE #/HPF (NONE SEEN); Cast Seen? SEEN #/LPF (NONE SEEN); Crystals Seen? None Seen #/HPF (None Seen); Hyaline Casts Urine FEW; Mucus Urine SMALL (NONE SEEN); RBC Urine 0-2 #/HPF (0-2); Squamous Epithelial Cell Urine FEW #/LPF (NONE/RARE); Urine Culture Indicated NO; WBC Urine 0-2 #/HPF (NONE SEEN)
== END 2025-02-25 22:48 | disposition short-term general hospital (02) ==
LOC: FBCO 17:13 → FBC 17:13
PROVIDERS: Admitting Provider Obstetrics & Gynecology; PCP Nurse Practitioner Family; Visit Provider Obstetrics & Gynecology
DX: O14.13 Severe pre-eclampsia, third trimester (principal); Z3A.32 32 weeks gestation of pregnancy; O24.414 Gestational diabetes mellitus in pregnancy, insulin controlled
CPT/HCPCS: 36415; 51702; 59025; 80307; 81001; 82565; 82570; 84112; 84156; 84450; 84460; 84520; 84550; 85025; 85384; 85610; 85730; 86850; 86900; 86901; 96365; 96366; 96372; 96375; 96376; G0378; G0379; J0360; J0702; J1920; J3475